=== PATIENT | female | born 1955 | race Caucasian/White ===

== ENCOUNTER 2016-09-25 08:24 | Emergency (ER) | payer MEDICARE, OTHER ==
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
[2016-09-25 09:56] LABS: Hematocrit 35 % (35-47); Hemoglobin 11.9 g/dl (12.0-16.0); Mean Corpuscular HGB Conc 34 g/dl (31-36); Mean Corpuscular Hemoglobin 31 pg (27-31); Mean Corpuscular Volume 90 fL (80-97); Mean Platelet Volume 8 um3 (7.4-10.4); Red Blood Count 3.87 10^6/ul (4.0-5.4); Red Cell Distribution Width 14 % (10.5-15)
[2016-09-25 10:06] LABS: ALT 39 U/L (7-52); AST 56 U/L (13-39); Albumin 4.1 g/dL (3.2-5.2); Alkaline Phosphatase 102 U/L (34-104); Anion Gap 11 mmol/L (2-11); Blood Urea Nitrogen 12 mg/dL (6-24); CO2 Carbon Dioxide 22 mmol/L (22-32); Calcium 9.2 mg/dL (8.6-10.3); Chloride 103 mmol/L (101-111); EGFR African American 93.8 (>60); EGFR Non-African American 72.9 (>60); Globulin 3.1 g/dL (2-4); Glucose 112 mg/dL (70-100); Potassium 3.9 mmol/L (3.5-5.0); Sodium 136 mmol/L (133-145); Total Protein 7.2 g/dL (6.4-8.9)
[2016-09-25 10:09] VITALS: BP 103/61
[2016-09-25 10:26] LABS: Urine Bacteria Absent (Absent); Urine Bilirubin Negative (Negative); Urine Glucose Negative (Negative); Urine Nitrite Negative (Negative)
[2016-09-25 10:48] LABS: Acetaminophen < 15 mcg/mL; Alcohol 103 mg/dL (<10); Salicylate < 2.50 mg/dL (<30)
[2016-09-25 10:58] LABS: TSH (Thyroid Stimulating Horm) 1.66 mcIU/mL (0.34-5.60)
[2016-09-25 11:04] LABS: Benzodiazepine Urine Screen None Detected (None Detect)
== END 2016-09-25 11:12 | disposition home or self-care (01) ==
LOC: ED 08:24
DX: F41.9 Anxiety disorder, unspecified (principal); D64.9 Anemia, unspecified; I25.10 Atherosclerotic heart disease of native coronary artery without angina pectoris; I10 Essential (primary) hypertension; Z95.5 Presence of coronary angioplasty implant and graft; E78.00 Pure hypercholesterolemia, unspecified; J44.9 Chronic obstructive pulmonary disease, unspecified; F32.9 Major depressive disorder, single episode, unspecified; Z90.711 Acquired absence of uterus with remaining cervical stump; Z87.891 Personal history of nicotine dependence
CPT/HCPCS: 36415; 80053; 80307; 80320; 80329; 81003; 81015; 83605; 84443; 84484; 85025; 99282; G0480

== ENCOUNTER 2016-10-11 07:56 | Emergency (ER) | payer MEDICARE, OTHER ==
[2016-10-11 08:04] VITALS: BP 104/67
--- NOTE | 2016-10-11 08:27 | UC ---
Hand/Wrist HPI - HPI Summary HPI Summary: right thumb pain feeling like it gets stuck and clicks with movement--no known injury - History Of Current Complaint Chief Complaint: UCUpperExtremity Stated Complaint: THUMB INJURY Time Seen by Provider: 10/11/16 08:25 Hx Obtained From: Patient ?: No Mechanism Of Injury: no known injury Onset/Duration: Gradual Onset, Lasting Days, Still Present Severity Initially: Moderate Severity Currently: Moderate Pain Intensity: 5 Pain Scale Used: 0-10 Numeric Character Of Pain: Throbbing, Stiffness Aggravating Factor(s): Movement Associated Signs And Symptoms: Positive: Negative Related History: Dominant Hand Right - Allergies/Home Medications Allergies/Adverse Reactions: Allergies Allergy/AdvReac Type Severity Reaction Status Date / Time Pravastatin [From Pravachol] Allergy Muscle Ache Verified 10/11/16 07:59 PMH/Surg Hx/FS Hx/Imm Hx Previously Healthy: No Endocrine History: Dyslipidemia Cardiovascular History: Hypertension GI/ History: Gastroesophageal Reflux Psychological History: Depression - Surgical History Surgical History: Yes Surgery Procedure, Year, and Place: [facility] [facility] [place]PLACEMENT THUMB AND INDEX FINGER-[facility] - Family History Known Family History: Positive: Hypertension - Social History Occupation: Retired Lives: With Family Alcohol Use: Occasionally Substance Use Type: Prescribed Smoking Status (MU): Former Smoker Type: Cigarettes Amount Used/How Often: 1.5 PPD Length of Time of Smoking/Using Tobacco: 17 YEARS Have You Smoked in the Last Year: No When Did the Patient Quit Smoking/Using Tobacco: 1996 Household Exposure Type: Cigarettes Review of Systems Constitutional: Negative Skin: Negative Eyes: Negative ENT: Negative Respiratory: Negative Cardiovascular: Negative Gastrointestinal: Negative Genitourinary: Negative Motor: Negative Neurovascular: Negative Musculoskeletal: Arthralgia - right thumb Neurological: Negative Psychological: Negative All Other Systems Reviewed And Are Negative: Yes Physical Exam Triage Information Reviewed: Yes Appearance: Well-Appearing, No Pain Distress, Well-Nourished Vital Signs: Initial Vital Signs Temp 97.4 F 10/11/16 08:00 Pulse 80 10/11/16 08:00 Resp 16 10/11/16 08:00 BP 104/67 10/11/16 08:00 Pulse Ox 97 10/11/16 08:00 Vital Signs Reviewed: Yes Eye Exam: Normal Eyes: Positive: Conjunctiva Clear ENT Exam: Normal ENT: Positive: Normal ENT inspection, Hearing grossly normal, Pharynx normal, TMs normal. Negative: Nasal congestion, Nasal drainage, Tonsillar swelling, Tonsillar exudate, Trismus, Muffled/hoarse voice Dental Exam: Normal Neck exam: Normal Neck: Positive: Supple, Nontender Respiratory Exam: Normal Respiratory: Positive: Chest non-tender, No respiratory distress, No accessory muscle use Cardiovascular Exam: Normal Cardiovascular: Positive: RRR, Pulses Normal, Brisk Capillary Refill Musculoskeletal Exam: Normal Musculoskeletal: Positive: ROM Intact, Strength Limited @ - right thumb, Edema @ - right thumb slightly swollen Neurological Exam: Normal Neurological: Positive: Alert, Muscle Tone Normal Psychological Exam: Normal Skin Exam: Normal Diagnostics - Radiology No standard instances Xray Interpretation: Positive (See Comments) - osteopenia Radiology Interpretation Completed By: Radiologist Hand/Wrist Course/Dx - Course Course Of Treatment: thumb spica, ibuprofen, follow with ortho - Differential Dx/Diagnosis Differential Diagnosis/HQI/PQRI: Contusion, Fracture, Sprain, Strain, Tendonitis Provider Diagnoses: Right thumb trigger finger Discharge - Discharge Plan Condition: Stable Disposition: HOME Prescriptions: Ibuprofen TAB* [Motrin TAB* 600 MG] 600 mg PO Q6H PRN #40 tab PRN Reason: thumb pain Patient Education Materials: Ibuprofen (By mouth), Trigger Finger (ED) Referrals: Luis Felipe Randall MD [Medical Doctor] - 4 Days
--- NOTE | 2016-10-11 08:52 | RAD ---
HISTORY: Right thumb pain, injury COMPARISONS: None VIEWS: 3, Frontal, lateral, and oblique views of the first digit of the right hand FINDINGS: BONE DENSITY: There is diffuse osteopenia. BONES: There is no displaced fracture. JOINTS: There is no arthropathy. ALIGNMENT: There is no dislocation. SOFT TISSUES: Unremarkable. OTHER FINDINGS: None. IMPRESSION: OSTEOPENIA. NO ACUTE OSSEOUS INJURY. THE DEGREE OF OSTEOPENIA MAY MAKE A NONDISPLACED FRACTURE RADIOGRAPHICALLY OCCULT. IF SYMPTOMS PERSIST, RECOMMEND REPEAT IMAGING.
== END 2016-10-11 09:16 | disposition home or self-care (01) ==
LOC: UCEAST 07:56
DX: M65.311 Trigger thumb, right thumb (principal); Z87.891 Personal history of nicotine dependence
CPT/HCPCS: 99213; G0463

== ENCOUNTER 2016-12-14 07:40 | Emergency (ER) | payer MEDICARE, OTHER ==
[2016-12-14 08:11] VITALS: BP 129/79
== END 2016-12-14 08:46 | disposition left against medical advice (07) ==
LOC: UCEAST 07:40
DX: R07.81 Pleurodynia (principal); Z53.21 Procedure and treatment not carried out due to patient leaving prior to being seen by health care provider

== ENCOUNTER 2016-12-14 10:30 | Emergency (ER) | payer MEDICARE, OTHER ==
[2016-12-14 11:51] VITALS: BP 97/77
--- NOTE | 2016-12-14 12:25 | UC ---
Minor Trauma HPI - HPI Summary HPI Summary: Patient presents s/p traumatic injury to the right posterior ribs three days ago. she was getting ready for bed applying her cpap in the bathroom and fell. she struck the right side of her ribs on the way down. Denies LOC, got herself back up. She thought it would just get better but it in not. She reports constant pain, which is worse with movement, coughing, or to palpation. She states she cannot sleep at night because when she rolls over it wakes her. - History of Current Complaint Chief Complaint: UCTrauma Stated Complaint: BACK PAIN Time Seen by Provider: 12/14/16 12:08 Hx Obtained From: Patient ?: No Onset/Duration: Sudden Onset Onset Of Pain: Immediate Severity Initially: Moderate Severity Currently: Moderate Mechanism Of Injury: Blunt Trauma, Direct Blow Aggravating Factor(s): Deep Breaths, Movement Alleviating Factor(s): OTC Meds Associated Signs And Symptoms: Positive: Ecchymosis, Swelling - Risk Factors Penetrating Injury Risk Factors: Negative Compartment Syndrome Risk Factors: Pain - Allergies/Home Medications Allergies/Adverse Reactions: Allergies Allergy/AdvReac Type Severity Reaction Status Date / Time Pravastatin [From Pravachol] Allergy Muscle Ache Verified 12/14/16 11:52 PMH/Surg Hx/FS Hx/Imm Hx Previously Healthy: Yes Cardiovascular History: Cardiac Disease Neurological History: Other Other Neurological History: fibromyalgia - Surgical History Surgical History: Yes Surgery Procedure, Year, and Place: [place] [facility] [place]AC[place]. 03/2011 LEFT HAND TENDON REPLACEMENT THUMB AND INDEX FINGER-[facility] - Family History Known Family History: Positive: Hypertension - Social History Occupation: Unemployed Alcohol Use: Occasionally Substance Use Type: None, Prescribed Smoking Status (MU): Former Smoker Type: Cigarettes Amount Used/How Often: 1.5 PPD Length of Time of Smoking/Using Tobacco: 17 YEARS Have You Smoked in the Last Year: No When Did the Patient Quit Smoking/Using Tobacco: 1996 Household Exposure Type: Cigarettes Review of Systems Musculoskeletal: Myalgia All Other Systems Reviewed And Are Negative: Yes Physical Exam Triage Information Reviewed: Yes Appearance: Well-Appearing Vital Signs: Initial Vital Signs Temp 97.6 F 12/14/16 11:47 Pulse 91 12/14/16 11:47 Resp 20 12/14/16 11:47 BP 97/77 12/14/16 11:47 Pulse Ox 97 12/14/16 11:47 Vital Signs Reviewed: Yes Eye Exam: Normal ENT Exam: Normal Neck exam: Normal Respiratory Exam: Normal Cardiovascular Exam: Normal Abdominal Exam: Normal Musculoskeletal: Positive: Strength Limited @, ROM Limited @, Edema @, Other: - ribs, brusing noted posterior at location of rib #9-11. tenderness on palpation. no crepitus or subquetaneous empysema palpated. Skin: Positive: Other - bruising noted. Minor Trauma Course/Dx - Course Course Of Treatment: Patient presents s/p traumatic injury to the right ribs. Xrays were obtained and read as negative for fracture, however if pain persist follow up imaging was recommended. I gave a copy of the report to the patient and she understands the discharge plan. Pain addressed. with norco. Follow up with Dr. Puri if pain continues. Stable at discharge. - Differential Dx/Diagnosis Differential Diagnosis/HQI/PQRI: Contusion(s) Provider Diagnoses: Contusion rib. Discharge - Discharge Plan Condition: Stable Disposition: HOME Prescriptions: HYDROcodone/ACETAMIN 5-325 MG* [[place] 5-325 TAB*] 1 tab PO Q8H PRN #14 tab MDD 3 PRN Reason: rib contusion Patient Education Materials: Contusion in Adults (ED) Referrals: Ailin Douglas MD [Primary Care Provider] - Scott Puri MD [Medical Doctor] -
--- NOTE | 2016-12-14 12:58 | RAD ---
INDICATION: Trauma, bilateral rib pain. TECHNIQUE: 3 views of both ribs were obtained. FINDINGS: No fracture or significant focal osseous abnormality is seen. The lungs appear grossly clear. No pleural effusion is seen. IMPRESSION: NO EVIDENCE FOR FRACTURE, IF THE PATIENT'S SYMPTOMS PERSIST RECOMMEND FOLLOW-UP IMAGING.
== END 2016-12-14 13:15 | disposition home or self-care (01) ==
LOC: UCEAST 10:30
DX: S20.221A Contusion of right back wall of thorax, initial encounter (principal); W18.00XA Striking against unspecified object with subsequent fall, initial encounter; Y93.89 Activity, other specified; Y92.002 Bathroom of unspecified non-institutional (private) residence as the place of occurrence of the external cause; I51.9 Heart disease, unspecified; Z95.5 Presence of coronary angioplasty implant and graft; Z90.711 Acquired absence of uterus with remaining cervical stump; M79.7 Fibromyalgia; Z87.891 Personal history of nicotine dependence
CPT/HCPCS: 71110; 99212; G0463

== ENCOUNTER 2018-07-23 10:01 | Emergency (ER) | payer MEDICARE, OTHER ==
--- OUTSIDE RECORDS SUMMARY | 2018-07-23 10:29 | XMS REPORT | Continuity of Care Document ---
:1955 External Reference #:[id number] Author Name Kendrick, Selam Care Team Providers Name Role Phone Ailin Douglas MD Primary Care Physician Unavailable Payers Date Identification Numbers Payment Provider Subscriber Effective: 2004 Policy Number: [id number] Medicare Barb Fritz PayID: [id number] [address] [place] [address] Policy Number: [id number] [employer] Barb Fritz Group Number: [id number] [address] PayID: [id number] [place] [address] Effective: 1999 Policy Number: [id number] Aracelis Guzman Barb Fritz Onset: 1999 Group Number: [id number] [address] PayID: [place] [id number] Advance Directives Description No Information Available Problems Date Description Provider Status Onset: 06/25/2011 Coronary arteriosclerosis Seth Astorga M.D. Active Onset: 06/25/2011 Pure hypercholesterolemia Seth Astorga M.D. Active Onset: 02/07/2012 Difficulty breathing Seth Astorga M.D. Active Onset: 08/28/2013 Benign essential hypertension ZABRINA Zuleta Active Onset: 08/28/2013 Myalgia & Myositis Unspecified ZABRINA Zuleta Active Onset: 03/14/2014 Obstructive sleep apnea syndrome Ethan Weaver M.D. Active Onset: 08/20/2014 Chronic pain Marbella Zhang M.D. Active Onset: 08/20/2014 Periodic leg movements of sleep Marbella Zhang M.D. Active Onset: 11/06/2015 Pain in left arm Marbella Zhang M.D. Active Onset: 04/09/2016 Insomnia Rosa Maria Paulino DNP, RN, Active [employer] Family History Date Family Member(s) Observation Comments : (age 74 Father due to Cancer Years) Father Bladder Cancer Father : (age 69 Mother due to CA Years) Mother Heart Disease Mother cancer, : (age 34 First Brother due to Unknown Years) Causes Second Brother Unknown Brain bleed -stroke Social History Type Date Description Comments Sex Unknown Marital Status Lives With Alone Occupation Retired Occupation Detective Supervisor ETOH Use Denies alcohol use Recreational Drug Use Denies Drug Use Tobacco Use Start: Unknown Patient is a current 1/2 ppd, restarted smoker, smokes every with spouse's day in February 2018 Smoking Status Reviewed: 07/12/18 Patient is a current 1/2 ppd, restarted smoker, smokes every with spouse's day in February 2018 Exercise Type/Frequency Exercises sporadically walks as weather permits Allergies, Adverse Reactions, Alerts Date Description Reaction Status Severity Comments 07/29/2011 Pravachol Active muscle aches 12/04/2007 NKDA Inactive Medications Medication Date Status Form Strength Qnty SIG Indications Ordering Provider Entresto 07/05/ Active Tablets 49-51mg 180ta 1 tab by Seth 2018 bs mouth twice Serge Astorga, a day M.Emi Aldactone 03/30/ Active Tablets 25mg 45tab /2 by Seth 2016 s mouth every FRomero Mauserstepan MRomeroDRomero Requip 11/05/ Active Tablets 0.25mg 360ta take 2 by Flaquita.4 Nissa 2015 bs mouth twice Cowdery, day M.DRomero Coreg CR 06/30/ Active Caps ER 10mg 180ca 1 tab twice Seth 2015 24HR ps a day Serge Astorga M.D. Fluoxetine HCL 07/27/ Active Capsules 20mg 90cap 1 cap by Adilia 2013 s mouth daily Gnadt, SKIRT TRIMMER Ventolin HFA 04/19/ Active Aerosol 108(90Bas 1unit 2 puffs po Other 2013 e) s qid prn Ordering mcg/Act Provider Potassium 03/01/ Active Capsules 10Meq 90cap take 1 Seth Chloride ER 2011 ER s capsule by Serge Astorga, mouth every M.D. day Crestor 01/05/ Active Tablets 10mg 90tab 2 tab by Seth 2011 s mouth every FRomero Astorga, day M.D. Aspirin 08/13/ Active Chewtabs 81mg 30uni 1 po qd Seth 2009 ts Serge Astorga M.D. Multivitamin / Active one po qd Unknown 0000 Pantoprazole / Active Tablets DR 20mg 30tab 1 po qd Unknown Sodium 0000 s Symbicort / Active Aerosol 160-4.5mc 2 Unknown 0000 g/Act inhalation bid prn Cpap / Active Device qhs Unknown 0000 Duloxetine HCL / Active 60mg 1 tablet Unknown 0000 daily Alpha-Lipoic / Active 200mg 1 tablet Unknown Acid 0000 daily Gabapentin / Active Capsules 400mg take one Unknown 0000 capsule by in the morning and 2 in the evening Entresto 04/11/ Hx Tablets 24-26mg 60tab 1 tab by Seth 2018 - s mouth twice Serge Astorga, 07/04/ daily .D. 2018 Nitro-Dur 03/21/ Hx Patches 0.1mg/HR 30uni 1 patch I25.10 Seth 2017 - 24HR ts every day Serge Astorga, 04/11/ on in the .D. 2018 morning, off at night Zolpidem 06/14/ Hx Tablets 5mg 14tab Take One Rosa Maria Tartrate 2016 - s Tablet By Lora, 12/21/ Mouth AT [place] RN, 2018 Bedtime If [employer] Unable To Fall Asleep , Hold Amrix If Taking Max/Day-1 Oxycontin 05/29/ Hx Tab ER 12H 10mg by mouth Unknown 2016 - Abuse-Det every 12 03/09/ hours 2016 Coreg CR 11/26/ Hx Caps ER 10mg 200ca 1 by mouth Seth 2013 - 24HR ps in the Serge Astorga, 06/30/ alisa and Danyel 2015 1 in the evening starting 3.11.16 hold 3.10.16 pm dose Ropinirole HCL 11/16/ Hx Tablets 0.25mg 360ta 1-4 tabs 327.51 Marbella Peterson 2013 - bs tabs by Leatha, 01/02/ mouth every M.D. 2013 at night as directed Hydrocodone-Reji 07/27/ Hx Tablets 5-325mg 40tab 1 by mouth Adilia dumont 2013 - s every 4-6 Gnadt, SKIRT TRIMMER 05/29/ hours prn. 2016 Lisinopril 06/06/ Hx Tablets 2.5mg 90tab 1 po qd Seth 2013 - s Serge Astorga, M.D. 2013 Fluoxetine HCL 04/21/ Hx Capsules 40mg Marbella Peterson 2012 - Leatha, M.D. 2012 Fluoxetine 04/21/ Hx Capsules 20mg 90cap 1ppo Qarhett Peterson 2012 and 2 po Leatha, 07/27/ Qpm M.D. 2013 [id number] comp # Hydrocodone/Reji 04/21/ Hx Tablets 5-500mg 40tab 1 tab by Marbella dumont 2012 - mouth every Leatha, 07/27/ 12 hours M.D. 2013 as needed Potassium 03/01/ Hx Tablets ER 10Meq 90tab 1 tablet qd Seth Chloride CR 2011 - s FRomero Astorga, 12/11/ M.D. 2013 Coreg CR 02/28/ Hx Caps ER 10mg 270ca 1 po qa Seth 2011 - 24HR ps and 2 po F. Mauser, 11/26/ qpm M.D. 2013 Nitro-Dur 02/22/ Hx Patches 0.2mg/HR 30uni 1 patch qd Seth 2011 - 24HR ts on in the FRomero Astroga, 11/24/ am, off in M.D. 2013 the pm Coreg CR 01/05/ Hx Caps ER 20mg 90cap 1 po qd Seth 2011 - 24HR s FRomero Astorga, 02/28/ M.D. 2012 Prozac 12/20/ Hx Capsules 20mg 90cap 2-3 tabs by Marbella Peterson 2011 - mouth every Leatha, 01/05/ day M.D. 2011 Pravachol 07/21/ Hx Tablets 20mg 90tab 1 tablet po Seth 2011 - s qhs F. Mauser, 07/28/ M.D. 2011 Lisinopril 06/24/ Hx Tablets 2.5mg 90tab take 1 Seth 2011 - s tablet by Serge Astorga, 04/11/ mouth every M.D. 2019 day Simvastatin 12/25/ Hx Tablets 10mg 30tab 1 po qhs Seth 2010 - s Serge Astorga, M.D. 2010 Lisinopril 08/21/ Hx Tablets 2.5mg 100ta 1 po qd Seth 2010 - bs Serge Astorga, M.D. 2010 Cymbalta 06/17/ Hx Caps DR 20mg 1 po qd Seth 2010 - Part Serge Astorga, M.D. 2010 Coreg CR 06/17/ Hx Caps ER 10mg 100ca 1 po qd Seth 2010 - 24HR ps Serge Astorga, M.D. 2010 Coreg CR 12/22/ Hx Caps ER 10mg 180ca 2 po qd Seth 2009 - 24HR ps Serge Astorga, M.D. 2010 Protonix 08/13/ Hx Solution 40mg 1 po qd prn Seth 2009 - Rec Serge Astorga, M.D. 2010 Protonix 06/13/ Hx Tablets DR 40mg 90tab 1 po qd Seth 2009 - s Serge Astorga, M.D. 2009 Coreg CR 03/18/ Hx Caps ER 10mg 180ca 2 po qd Seth 2008 - 24HR lb Astorga, M.D. 2009 Coreg CR 12/26/ Hx Caps ER 30mg 90cap one po qd Seth 2008 - 24HR s Serge Astorga, M.D. 2010 Coreg CR 12/20/ Hx Caps ER 10mg 90cap 1 po qd Seth 2008 - 24HR s Serge Astorga, M.D. 2008 Coreg CR 12/20/ Hx Caps ER 20mg 90cap 1 po qd Seth 2008 - 24HR s Serge Astorga, M.D. 2008 Coreg CR 08/21/ Hx Caps ER 10mg 180ca 2 po qd Seth 2008 - 24HR ps Serge Astorga, M.D. 2008 Lisinopril 07/08/ Hx Tablets 2.5mg 100ta 1 po qd Seth 2008 - bs Serge Astorga, M.D. 2010 Lisinopril 06/20/ Hx Tablets 5mg 1 po qd Seth 2008 - Serge Astorga, M.D. 2008 Lisinopril 04/19/ Hx Tablets 2.5mg 90tab 1 po qd Seth 2008 - s Serge Astorga, M.D. 2009 Plavix 12/03/ Hx Tablets 75mg 90tab 1 PO qd Seth 2007 - s Serge Astorga, M.D. 2010 Aspirin 12/03/ Hx Tablets 325mg 1 po qd Seth 2007 - Serge Astorga, M.D. 2009 Paroxetine HCL 12/03/ Hx Tablets 20mg 90tab 1 PO qd Seth 2007 - s Serge Astorga, M.D. 2010 Simvastatin 12/03/ Hx Tablets 40mg 90tab 1 PO QHS Seth 2007 - s Serge Astorga, M.D. 2008 Nitroquick 12/03/ Hx Tablets 0.4mg 25tab 1 S/L prn Seth 2007 - Sub s Chest Pain, Serge Astorga, 08/21/ Q 5 Min. Up M.D. 2010 To 3 Tabs Coreg CR 10/24/ Hx Caps ER 10mg 30cap 1 po qd Seth 2007 - 24HR s Serge Astorga, M.D. 2008 Aspir-Low 10/24/ Hx Tablets DR 81mg 30tab 1 PO qd Seth 2007 - s Serge Astorga, M.D. 2007 Carisoprodol / Hx tablet 350mg 1 po tid Unknown 0000 - 2009 Lyrica / Hx Capsules 150mg 60cap 1 PO tid Unknown 0000 - s 2008 Nortriptyline / Hx Capsules 10mg 60cap PO 2 QHS Unknown HCL 0000 - s 2008 Trazodone HCL / Hx Tablets 50mg 30tab 2 QHS Unknown 0000 - s 2012 Hydrocodone/Reji 00/00/ Hx Tablets 5-500mg 30tab 1 Tablet PO Unknown taminophen 0000 - s Q 4 HRS prn 2010 Lipitor 00/ Hx Tablets 80mg 30tab 1 po qhs Unknown 0000 - s 2010 Gabapentin 00/ Hx Tablets 600mg 90tab 1 tab by Adilia 0000 - s mouth every Gnadt, SK[employer] TRIMMER morning and 2016 2 tabs in the evening Lyrica / Hx Capsules 75mg 60cap 2 po qd Unknown 0000 - s 2010 Valtrex / Hx Tablets 1gm 21tab 1 po q8h Unknown 0000 - s prn 2010 Carisoprodol / Hx Tablets 350mg 30tab 1 tab tid Unknown 0000 - s 2010 Iron / Hx Tablets 325(65Fe) po daily Unknown 0000 - mg 2013 Cymbalta / Hx Caps DR 20mg 90cap 1 po qd Unknown 0000 - Part s 2010 Coreg / Hx Tablets 3.125mg 90tab 1 po bid Unknown 0000 - s 2010 B-Complex 100 / Hx Tablets 100 qd Unknown - 2013 Prozac 00/ Hx Capsules 20mg 90cap 1 po qd Unknown 0000 - s 2010 Disulfiram / Hx Tablets 250mg 90tab 1 every day Unknown 0000 - s 2012 Fluoxetine 00/ Hx Capsules 20mg 30cap 1 po bid Unknown 0000 - s 2012 Coreg CR / Hx Caps ER 10mg 30cap 1 po bid Unknown 0000 - 24HR s 2011 Simvastatin /00/ Hx Tablets 10mg 30tab 1 po qhs Unknown 0000 - s 2011 Pravachol /00/ Hx Tablets 10mg 30tab 1 po qd Unknown 0000 - s 2011 Fish Oil / Hx Capsules 1200mg 1 po qd Unknown Burp-Less - 2013 Trazodone HCL 00/ Hx Tablets 100mg 1 po qhs Unknown 0000 - 2015 Oxycodone HCL 00/ Hx 10mg 1 tablet in Unknown 0000 - the morning 2016 tablets at night Amrix 00/ Hx 15mg 1tablet Unknown 0000 - daily 2016 Medications Administered in Office Medication Date Status Form Strength Qnty SIG Indications Ordering Provider Inj, Administered Injection Anshul S. Regadenoson, 018 Welch, DO 0.1 MG FACC Technetium TC Administered Injection Anshul S. 99M 018 Ewlch, DO Tetrofosmin, FACC Per Unit Dose Up To 40 Millicuries Depomedrol Administered Injection Tanja 40MG 017 Danyel Hernandez Technetium TC Administered Injection Job Bertrand 99M 016 Armin Terrell M.D., FACC, Per Unit Dose FASNC Up To 40 Millicuries Technetium TC Administered Injection Martha Silveira, 99M 016 PA Tetrofosmin, Per Unit Dose Up To 40 Millicuries Immunizations Description No Information Available Vital Signs Date Vital Result Comment 07/12/2018 8:19am Height 63 inches 5'3" Weight 109.50 lb with shoes Heart Rate 68 /min BP Systolic Sitting 108 mmHg BP Diastolic Sitting 70 mmHg BP Systolic Standing 108 mmHg BP Diastolic Standing 70 mmHg BMI (Body Mass Index) 19.4 kg/m2 Ejection Fraction 35-40% 06/21/18 Echo 04/24/2018 8:55am Height 63 inches 5'3" Weight 111.25 lb with shoes Heart Rate 80 /min BP Systolic Sitting 112 mmHg ule BP Diastolic Sitting 62 mmHg ule BMI (Body Mass Index) 19.7 kg/m2 Ejection Fraction 42% -48% Lexiscan stress test resting/stress 04/07/18 03/21/2018 8:50am Height 63 inches 5'3" Weight 118.00 lb with shoes Heart Rate 80 /min BP Systolic Sitting 116 mmHg lue reg cuff BP Diastolic Sitting 72 mmHg lue reg cuff BMI (Body Mass Index) 20.9 kg/m2 Ejection Fraction 30-35% echo 03/10/18 12/22/2017 2:43pm Height 63 inches 5'3" Weight 130.50 lb Heart Rate 88 /min BP Systolic Sitting 108 mmHg LA< reg BP Diastolic Sitting 68 mmHg LA< reg BP Systolic Standing 96 mmHg la repeat sitting. BP Diastolic Standing 40 mmHg la repeat sitting. BMI (Body Mass Index) 23.1 kg/m2 Ejection Fraction 35%-40% 03/30/2017 04/06/2017 8:21am Height 63 inches 5'3" Weight 134.00 lb with shoes Heart Rate 76 /min BP Systolic Sitting 114 mmHg Rue reg cuff BP Diastolic Sitting 90 mmHg Rue reg cuff Respiratory Rate 16 /min O2 % BldC Oximetry 94 % On Ra BMI (Body Mass Index) 23.7 kg/m2 11/05/2016 8:55am Height 63 inches 5'3" Weight 130.00 lb Heart Rate 72 /min BP Systolic Sitting 130 mmHg BP Diastolic Sitting 82 mmHg Respiratory Rate 20 /min O2 % BldC Oximetry 95 % room air BMI (Body Mass Index) 23.0 kg/m2 10/13/2016 10:54am Height 63 inches 5'3" Weight 133.00 lb Heart Rate 76 /min BP Systolic Sitting 102 mmHg BP Diastolic Sitting 70 mmHg Respiratory Rate 14 /min Body Temperature 99.0 F Pain Level 5 BMI (Body Mass Index) 23.6 kg/m2 08/10/2016 8:15am Height 62 inches 5'2" Weight 138.75 lb with shoes Heart Rate 62 /min BP Systolic Sitting 128 mmHg LA reg cuff BP Diastolic Sitting 76 mmHg LA reg cuff BMI (Body Mass Index) 25.4 kg/m2 07/27/2016 8:32am Height 62 inches 5'2" Weight 138.00 lb Heart Rate 82 /min BP Systolic Sitting 110 mmHg BP Diastolic Sitting 60 mmHg Respiratory Rate 18 /min Pain Level 8 Neck O2 % BldC Oximetry 94 % BMI (Body Mass Index) 25.2 kg/m2 06/14/2016 11:27am Height 62 inches 5'2" Weight 138.00 lb Heart Rate 83 /min BP Systolic Sitting 120 mmHg BP Diastolic Sitting 64 mmHg Respiratory Rate 14 /min O2 % BldC Oximetry 96 % BMI (Body Mass Index) 25.2 kg/m2 04/09/2016 8:48am Height 62 inches 5'2" Weight 138.00 lb Heart Rate 81 /min BP Systolic Sitting 122 mmHg BP Diastolic Sitting 68 mmHg Respiratory Rate 14 /min O2 % BldC Oximetry 94 % BMI (Body Mass Index) 25.2 kg/m2 02/25/2016 8:15am Height 62 inches 5'2" Weight 138.25 lb with shoes Heart Rate 88 /min BP Systolic Sitting 126 mmHg LA reg cuff BP Diastolic Sitting 78 mmHg LA reg cuff O2 % BldC Oximetry 98 % Room Air BMI (Body Mass Index) 25.3 kg/m2 Ejection Fraction 40% - 45% echo 08/15/15 12/02/2015 9:26am Height 62 inches 5'2" Weight 139.00 lb Heart Rate 92 /min BP Systolic 108 mmHg BP Diastolic 60 mmHg Respiratory Rate 14 /min O2 % BldC Oximetry 96 % BMI (Body Mass Index) 25.4 kg/m2 11/25/2015 9:04am Height 62 inches 5'2" Weight 139.00 lb w/shoes Heart Rate 92 /min BP Systolic Sitting 104 mmHg LA reg cuff BP Diastolic Sitting 72 mmHg LA reg cuff BMI (Body Mass Index) 25.4 kg/m2 Ejection Fraction 40-45% Echo 08/15/15 11/06/2015 11:19am Height 62 inches 5'2" Weight 140.00 lb Heart Rate 76 /min BP Systolic Sitting 116 mmHg BP Diastolic Sitting 82 mmHg Respiratory Rate 14 /min BMI (Body Mass Index) 25.6 kg/m2 08/29/2015 9:16am Height 62 inches 5'2" Weight 136.25 lb Heart Rate 86 /min BP Systolic Sitting 101 mmHg BP Diastolic Sitting 60 mmHg Respiratory Rate 14 /min O2 % BldC Oximetry 96 % BMI (Body Mass Index) 24.9 kg/m2 07/01/2015 1:41pm Height 62 inches 5'2" Weight 136.25 lb with shoes Heart Rate 88 /min BP Systolic Sitting 94 mmHg LA, regular BP Diastolic Sitting 58 mmHg LA, regular BMI (Body Mass Index) 24.9 kg/m2 Ejection Fraction 35-40% echo 09/06/14 06/19/2015 11:33am Height 62 inches 5'2" Weight 131.50 lb with shoes Heart Rate 81 /min BP Systolic Sitting 84 mmHg LA, regular cuff BP Diastolic Sitting 60 mmHg LA, regular cuff BMI (Body Mass Index) 24.0 kg/m2 Ejection Fraction 35-40% echo09/06/14 05/30/2015 9:29am Height 62 inches 5'2" Weight 132.00 lb Heart Rate 73 /min BP Systolic Sitting 120 mmHg BP Diastolic Sitting 70 mmHg Respiratory Rate 16 /min O2 % BldC Oximetry 96 % BMI (Body Mass Index) 24.1 kg/m2 02/20/2015 8:37am Height 62 inches 5'2" Weight 132.00 lb Heart Rate 72 /min BP Systolic Sitting 114 mmHg BP Diastolic Sitting 72 mmHg Respiratory Rate 16 /min BMI (Body Mass Index) 24.1 kg/m2 11/27/2014 8:05am Height 62 inches 5'2" Weight 129.00 lb Heart Rate 80 /min BP Systolic 104 mmHg BP Diastolic 60 mmHg Respiratory Rate 14 /min O2 % BldC Oximetry 96 % BMI (Body Mass Index) 23.6 kg/m2 08/20/2014 8:34am Height 62 inches 5'2" Weight 129.00 lb Heart Rate 68 /min BP Systolic Sitting 116 mmHg BP Diastolic Sitting 66 mmHg Respiratory Rate 16 /min BMI (Body Mass Index) 23.6 kg/m2 08/19/2014 8:33am Height 62 inches 5'2" Weight 130.50 lb Heart Rate 62 /min BP Systolic 116 mmHg LA reg BP Diastolic 70 mmHg LA reg BMI (Body Mass Index) 23.9 kg/m2 Ejection Fraction 35-40% ECHO 12/26/13 05/30/2014 8:38am Height 62 inches 5'2" Weight 127.00 lb Heart Rate 75 /min BP Systolic Sitting 122 mmHg BP Diastolic Sitting 56 mmHg Respiratory Rate 18 /min O2 % BldC Oximetry 94 % BMI (Body Mass Index) 23.2 kg/m2 03/14/2014 3:06pm Height 64 inches 5'4" Weight 126.00 lb Heart Rate 78 /min BP Systolic Sitting 122 mmHg BP Diastolic Sitting 66 mmHg Respiratory Rate 16 /min O2 % BldC Oximetry 96 % BMI (Body Mass Index) 21.6 kg/m2 Neck Circumference in inches 13 02/19/2014 8:41am Height 64 inches 5'4" Weight 125.00 lb Heart Rate 64 /min BP Systolic Sitting 118 mmHg BP Diastolic Sitting 76 mmHg Respiratory Rate 16 /min BMI (Body Mass Index) 21.5 kg/m2 11/26/2013 8:37am Height 64 inches 5'4" Weight 129.75 lb Heart Rate 72 /min BP Systolic Sitting 104 mmHg BP Diastolic Sitting 66 mmHg Respiratory Rate 15 /min BMI (Body Mass Index) 22.3 kg/m2 11/16/2013 10:10am Height 64 inches 5'4" Weight 127.50 lb Heart Rate 68 /min BP Systolic Sitting 108 mmHg BP Diastolic Sitting 74 mmHg Respiratory Rate 16 /min BMI (Body Mass Index) 21.9 kg/m2 09/10/2013 11:09am Height 62 inches 5'2" Weight 128.00 lb Heart Rate 66 /min BP Systolic Sitting 100 mmHg BP Diastolic Sitting 60 mmHg Respiratory Rate 16 /min BMI (Body Mass Index) 23.4 kg/m2 08/28/2013 9:25am Height 62 inches 5'2" Weight 128.50 lb with shoes Heart Rate 66 /min BP Systolic Sitting 126 mmHg LA reg cuff BP Diastolic Sitting 80 mmHg LA reg cuff Respiratory Rate 14 /min BMI (Body Mass Index) 23.5 kg/m2 07/27/2013 8:54am Height 62 inches 5'2" Weight 128.00 lb Heart Rate 67 /min BP Systolic Sitting 110 mmHg BP Diastolic Sitting 110 mmHg Respiratory Rate 16 /min BMI (Body Mass Index) 23.4 kg/m2 07/09/2013 8:28am Heart Rate 72 /min BP Systolic Sitting 96 mmHg BP Diastolic Sitting 62 mmHg 04/19/2013 9:43am Height 62 inches 5'2" Weight 127.00 lb Heart Rate 68 /min BP Systolic 120 mmHg BP Diastolic 64 mmHg BMI (Body Mass Index) 23.2 kg/m2 03/22/2013 2:11pm Heart Rate 72 /min BP Systolic Sitting 102 mmHg BP Diastolic Sitting 70 mmHg Respiratory Rate 16 /min 11/24/2012 9:44am Height 62 inches 5'2" Weight 123.00 lb Heart Rate 72 /min BP Systolic Sitting 108 mmHg BP Diastolic Sitting 74 mmHg Respiratory Rate 12 /min BMI (Body Mass Index) 22.5 kg/m2 02/23/2012 1:44pm Height 62 inches 5'2" Weight 124.00 lb Heart Rate 74 /min BP Systolic 122 mmHg BP Diastolic 68 mmHg BMI (Body Mass Index) 22.7 kg/m2 01/06/2012 10:05am Height 62 inches 5'2" Weight 125.00 lb Heart Rate 60 /min BP Systolic 104 mmHg BP Diastolic 68 mmHg BMI (Body Mass Index) 22.9 kg/m2 07/14/2011 2:50pm Height 62 inches 5'2" Weight 123.00 lb Heart Rate 72 /min BP Systolic Sitting 130 mmHg BP Diastolic Sitting 72 mmHg BMI (Body Mass Index) 22.5 kg/m2 06/25/2011 9:30am Height 62 inches 5'2" Weight 129.00 lb Heart Rate 63 /min BP Systolic 110 mmHg BP Diastolic 64 mmHg BMI (Body Mass Index) 23.6 kg/m2 12/25/2010 10:57am Height 62 inches 5'2" Weight 124.00 lb Heart Rate 67 /min BP Systolic Sitting 106 mmHg L BP Diastolic Sitting 70 mmHg L BMI (Body Mass Index) 22.7 kg/m2 08/21/2010 9:14am Weight 126.00 lb Heart Rate 72 /min BP Systolic Sitting 124 mmHg BP Diastolic Sitting 76 mmHg 06/17/2010 10:05am Weight 125.00 lb Heart Rate 63 /min BP Systolic 120 mmHg BP Diastolic 70 mmHg BP Systolic Sitting 100 mmHg BP Diastolic Sitting 70 mmHg BP Systolic Standing 92 mmHg BP Diastolic Standing 62 mmHg Respiratory Rate 16 /min O2 % BldC Oximetry 94 % 08/13/2009 4:01pm Weight 127.00 lb Heart Rate 80 /min BP Systolic 110 mmHg BP Diastolic 70 mmHg Respiratory Rate 16 /min 06/13/2009 10:09am Height 63 inches 5'3" Weight 128.00 lb Heart Rate 60 /min BP Systolic Sitting 104 mmHg L BP Diastolic Sitting 70 mmHg L BMI (Body Mass Index) 22.7 kg/m2 03/18/2009 9:16am Weight 135.00 lb Heart Rate 66 /min BP Systolic Sitting 90 mmHg BP Diastolic Sitting 64 mmHg BP Systolic Standing 90 mmHg BP Diastolic Standing 60 mmHg Respiratory Rate 16 /min 12/20/2008 2:36pm Height 63 inches 5'3" Weight 135.00 lb Heart Rate 72 /min BP Systolic Sitting 110 mmHg L BP Diastolic Sitting 60 mmHg L BMI (Body Mass Index) 23.9 kg/m2 08/21/2008 1:52pm Weight 142.00 lb Heart Rate 78 /min BP Systolic Sitting 100 mmHg BP Diastolic Sitting 64 mmHg BP Systolic Standing 100 mmHg BP Diastolic Standing 68 mmHg Respiratory Rate 16 /min 07/08/2008 10:41am Heart Rate 80 /min BP Systolic Sitting 100 mmHg BP Diastolic Sitting 70 mmHg BP Systolic Standing 92 mmHg BP Diastolic Standing 70 mmHg Respiratory Rate 16 /min 04/19/2008 9:51am Height 63 inches 5'3" Weight 138.00 lb Heart Rate 75 /min BP Systolic Sitting 110 mmHg L BP Diastolic Sitting 70 mmHg L BMI (Body Mass Index) 24.4 kg/m2 12/04/2007 8:19am Height 63 inches 5'3" Weight 135.00 lb Heart Rate 75 /min BP Systolic Sitting 94 mmHg BP Diastolic Sitting 60 mmHg BP Systolic Standing 80 mmHg BP Diastolic Standing 60 mmHg BMI (Body Mass Index) 23.9 kg/m2 Results Test Date Facility Test Result H/L Range Note Basic Metabolic 04/24/2018 [facility] Sodium 137 mmol/L N 135- [address] [place] [address] [phone] Potassium 4.2 mmol/L N 3.5-5.0 Chloride 102 mmol/L N 101-111 Co2 Carbon Dioxide 27 mmol/L N 22-32 Anion Gap 8 mmol/L N 2-11 Glucose 104 mg/dL High 70-100 Blood Urea Nitrogen 11 mg/dL N 6-24 Creatinine 0.71 mg/dL N 0.51-0.95 BUN/Creatinine Ratio 15.5 N 8-20 Calcium 9.7 mg/dL N 8.6-10.3 Egfr Non- 83.1 >60 Egfr 100.6 >60 1 Basic Metabolic Panel 03/23/2018 [facility] Sodium 138 mmol/L N 135-[address] [place] [address] [phone] Potassium 4.6 mmol/L N 3.5-5.0 Chloride 103 mmol/L N 101-111 Co2 Carbon Dioxide 27 mmol/L N 22-32 Anion Gap 8 mmol/L N 2-11 Glucose 94 mg/dL N 70-100 Blood Urea Nitrogen 11 mg/dL N 6-24 Creatinine 0.70 mg/dL N 0.51-0.95 BUN/Creatinine Ratio 15.7 N 8-20 Calcium 9.5 mg/dL N 8.6-10.3 Egfr Non- 84.5 >60 Egfr 102.3 >60 2 Laboratory test 03/23/2018 [facility] B-Type 37 pg/mL <=[address] [place] [address] Peptide BNP [phone] CBC Auto Diff 03/23/2018 [facility] White Blood 7.4 N 3.5- 10.[address] Count 10^3/[place] [address] [phone] Red Blood Count 3.93 10^6/uL Low 4.00-5.40 Hemoglobin 12.2 g/dL N 12.0-16.0 Hematocrit 37 % N 35-47 Mean Corpuscular Volume 94 fL N 80-97 Mean Corpuscular Hemoglobin 31 pg N 27-31 Mean Corpuscular HGB Conc 33 g/dL N 31-36 Red Cell Distribution Width 14 % N 10.5-15 Platelet Count 377 10^3/uL N 150-450 Mean Platelet Volume 9.2 fL N 7.4-10.4 Abs Neutrophils 3.8 10^3/uL N 1.5-7.7 Abs Lymphocytes 2.6 10^3/uL N 1.0-4.8 Abs Monocytes 0.7 10^3/uL N 0-0.8 Abs Eosinophils 0.2 10^3/uL N 0-0.6 Abs Basophils 0.1 10^3/uL N 0-0.2 Abs Nucleated RBC 0 10^3/uL Granulocyte % 51.6 % Lymphocyte % 35.0 % Monocyte % 10.0 % Eosinophil % 2.6 % Basophil % 0.8 % Nucleated Red Blood Cells % 0.1 Iron & Iron Binding 03/23/2018 [facility] Iron 66 g/dL N 50- 212 [address] [place] [address] [phone] Unsaturated Iron Binding < 311 g/dL Total Iron Binding Capacity 326 g/dL N 250-450 Transferrin 233 mg/dL N 203-362 % Iron Saturation 20 % N 15-55 Laboratory test 03/23/2018 [facility] Ferritin 141.3 ng/mL N 11-307 finding [address] [place] [address] [phone] C Reactive Protein 14.19 mg/L High <8.01 Erythrocyte Sed Rate 90 mm/Hr High 0-30 CBC Auto Diff 01/03/2018 [facility] White Blood 6.5 10^3/uL N 3.5-10.[address] [place] [address] [phone] Red Blood Count 3.71 10^6/uL Low 4.00-5.40 Hemoglobin 11.7 g/dL Low 12.0-16.0 Hematocrit 36 % N 35-47 Mean Corpuscular Volume 96 fL N 80-97 Mean Corpuscular Hemoglobin 32 pg High 27-31 Mean Corpuscular HGB Conc 33 g/dL N 31-36 Red Cell Distribution Width 14 % N 10.5-15 Platelet Count 301 10^3/uL N 150-450 Mean Platelet Volume 8.0 um3 N 7.4-10.4 Abs Neutrophils 3.3 10^3/uL N 1.5-7.7 Abs Lymphocytes 2.4 10^3/uL N 1.0-4.8 Abs Monocytes 0.6 10^3/uL N 0-0.8 Abs Eosinophils 0.2 10^3/uL N 0-0.6 Abs Basophils 0 10^3/uL N 0-0.2 Abs Nucleated RBC 0 10^3/uL Granulocyte % 50.9 % N 38-83 Lymphocyte % 37.3 % N 25-47 Monocyte % 8.8 % High 0-7 Eosinophil % 2.5 % N 0-6 Basophil % 0.5 % N 0-2 Nucleated Red Blood Cells % 0 Laboratory test 01/03/2018 [facility] TSH (Thyroid 3.31 mcIU/mL N 0.34-5.[address] Stim Horm) [place] [address] [phone] Free T4 (Free Thyroxine) 0.73 ng/dL N 0.61-1.12 Lipid Profile 01/03/2018 [facility] Triglycerides 137 mg/dL 3 (Trig/Chol/HDL) [address] [place] [address] [phone] Cholesterol 195 mg/dL 4 HDL Cholesterol 82.7 mg/dL 5 LDL Cholesterol 85 mg/dL 6 Comp Metabolic Panel 01/03/2018 [facility] Sodium 139 mmol/L N 135-145 [address] [place] [address] [phone] Potassium 4.5 mmol/L N 3.5-5.0 Chloride 103 mmol/L N 101-111 Co2 Carbon Dioxide 28 mmol/L N 22-32 Anion Gap 8 mmol/L N 2-11 Glucose 96 mg/dL N 70-100 Blood Urea Nitrogen 11 mg/dL N 6-24 Creatinine 0.78 mg/dL N 0.51-0.95 BUN/Creatinine Ratio 14.1 N 8-20 Calcium 9.8 mg/dL N 8.6-10.3 Total Protein 7.2 g/dL N 6.4-8.9 Albumin 4.4 g/dL N 3.2-5.2 Globulin 2.8 g/dL N 2-4 Albumin/Globulin Ratio 1.6 N 1-3 Total Bilirubin 0.50 mg/dL N 0.2-1.0 Alkaline Phosphatase 116 U/L High 34-104 Alt 40 U/L N 7-52 Ast 38 U/L N 13-39 Egfr Non- 74.8 >60 Egfr 90.6 >60 7 Lipid Panel - 01/03/2018 [facility] Creatine 104 U/L N 10-[address] Kinase(CK) [place] [address] [phone] Laboratory test 01/03/2018 [facility] B-Type Natriuretic 44 pg/ mL [address] [place] [address] [phone] Laboratory test 04/18/2017 [facility] Magnesium 2.0 N 1.9-2.[address] mg/[place] [address] [phone] Lipid Profile 04/18/2017 [facility] Triglycerides 139 9 (Trig/Chol/HDL) [address] mg/[place] [address] [phone] HDL Cholesterol 74.1 mg/dL 10 Cholesterol 204 mg/dL 11 LDL Cholesterol 102 mg/dL 12 Comp Metabolic Panel 04/18/2017 [facility] Sodium 136 mmol/L N 133-[address] [place] [address] [phone] Potassium 4.5 mmol/L N 3.5-5.0 Chloride 103 mmol/L N 101-111 Co2 Carbon Dioxide 27 mmol/L N 22-32 Anion Gap 6 mmol/L N 2-11 Glucose 99 mg/dL N 70-100 Blood Urea Nitrogen 11 mg/dL N 6-24 Creatinine 0.80 mg/dL N 0.51-0.95 BUN/Creatinine Ratio 13.8 N 8-20 Calcium 9.9 mg/dL N 8.6-10.3 Total Protein 7.1 g/dL N 6.4-8.9 Albumin 4.5 g/dL N 3.2-5.2 Globulin 2.6 g/dL N 2-4 Albumin/Globulin Ratio 1.7 N 1-3 Total Bilirubin 0.60 mg/dL N 0.2-1.0 Alkaline Phosphatase 113 U/L High 34-104 Alt 31 U/L N 7-52 Ast 36 U/L N 13-39 Egfr Non- 72.7 >60 Egfr 93.5 >60 13 Lipid Panel - 04/18/2017 [facility] Creatine 70 U/L N 10-[address] Kinase(CK) [place] [address] [phone] Laboratory test 08/11/2016 [facility] TSH (Thyroid 2.20 N 0.34 -5.[address] Stim Horm) mcIU/[place] [address] [phone] Free T4 (Free Thyroxine) 0.61 ng/dL N 0.61-1.12 Iron & Iron Binding 08/11/2016 [facility] Iron 65 g/dL N 50- [address] [place] [address] [phone] Unsaturated Iron Binding 243 g/dL N Total Iron Binding Capacity 308 g/dL N 250-450 % Iron Saturation 21 % N 15-55 CBC Auto Diff 08/11/2016 [facility] White Blood 7.1 10^3/uL N 3.5-10.[address] [place] [address] [phone] Red Blood Count 3.95 10^6/uL Low 4.0-5.4 Hemoglobin 11.8 g/dL Low 12.0-16.0 Hematocrit 37 % N 35-47 Mean Corpuscular Volume 93 fL N 80-97 Mean Corpuscular Hemoglobin 30 pg N 27-31 Mean Corpuscular HGB Conc 32 g/dL N 31-36 Red Cell Distribution Width 14 % N 10.5-15 Platelet Count 221 10^3/uL N 150-450 Mean Platelet Volume 9 um3 N 7.4-10.4 Abs Neutrophils 4.2 10^3/uL N 1.5-7.7 Abs Lymphocytes 1.7 10^3/uL N 1.0-4.8 Abs Monocytes 0.7 10^3/uL N 0-0.8 Abs Eosinophils 0.5 10^3/uL N 0-0.6 Abs Basophils 0 10^3/uL N 0-0.2 Abs Nucleated RBC 0 10^3/uL N Granulocyte % 58.7 % N 38-83 Lymphocyte % 24.0 % Low 25-47 Monocyte % 9.4 % High 1-9 Eosinophil % 7.4 % High 0-6 Basophil % 0.5 % N 0-2 Nucleated Red Blood Cells % 0 N Vitamin B12 And 08/11/2016 [facility] Vitamin B12 553 pg/mL N 180-914 14 Folate Serum [address] [place] [address] [phone] Folic Acid (Folate) 8.26 ng/mL N >3.99 Lipid Profile 08/11/2016 [facility] Triglycerides 122 mg/dL N 15 (Trig/Chol/HDL) [address] [place] [address] [phone] Cholesterol 179 mg/dL N 16 HDL Cholesterol 60.3 mg/dL N 17 LDL Cholesterol 94 mg/dL N 18 Comp Metabolic Panel 08/11/2016 [facility] Sodium 139 mmol/L N 133-[address] [place] [address] [phone] Potassium 4.1 mmol/L N 3.5-5.0 Chloride 102 mmol/L N 101-111 Co2 Carbon Dioxide 31 mmol/L N 22-32 Anion Gap 6 mmol/L N 2-11 Glucose 105 mg/dL High 70-100 Blood Urea Nitrogen 8 mg/dL N 6-24 Creatinine 0.83 mg/dL N 0.51-0.95 BUN/Creatinine Ratio 9.6 N 8-20 Calcium 9.3 mg/dL N 8.6-10.3 Total Protein 6.6 g/dL N 6.4-8.9 Albumin 3.9 g/dL N 3.2-5.2 Globulin 2.7 g/dL N 2-4 Albumin/Globulin Ratio 1.4 N 1-3 Total Bilirubin 0.40 mg/dL N 0.2-1.0 Alkaline Phosphatase 88 U/L N 34-104 Alt 23 U/L N 7-52 Ast 29 U/L N 13-39 Egfr Non- 69.9 N >60 Egfr 89.9 N >60 19 Lipid Panel - 08/11/2016 [facility] Creatine 69 U/L N 10-[address] Kinase(CK) [place] [address] [phone] CBC Auto Diff 06/20/2015 [facility] White Blood Count 7.3 N 3.5-10.[address] 10^3/[place] [address] [phone] Red Blood Count 3.61 10^6/uL Low 4.0-5.4 Hemoglobin 11.0 g/dL Low 12.0-16.0 Hematocrit 33 % Low 35-47 Mean Corpuscular Volume 91 fL N 80-97 Mean Corpuscular Hemoglobin 30 pg N 27-31 Mean Corpuscular HGB Conc 33 g/dL N 31-36 Red Cell Distribution Width 14 % N 10.5-15 Platelet Count 335 10^3/uL N 150-450 Mean Platelet Volume 8 um3 N 7.4-10.4 Abs Neutrophils 4.8 10^3/uL N 1.5-7.7 Abs Lymphocytes 1.7 10^3/uL N 1.0-4.8 Abs Monocytes 0.6 10^3/uL N 0-0.8 Abs Eosinophils 0.2 10^3/uL N 0-0.6 Abs Basophils 0 10^3/uL N 0-0.2 Abs Nucleated RBC 0 10^3/uL N Granulocyte % 65.6 % N 38-83 Lymphocyte % 22.7 % Low 25-47 Monocyte % 8.3 % N 1-9 Eosinophil % 3.1 % N 0-6 Basophil % 0.3 % N 0-2 Nucleated Red Blood Cells % 0 N Lipid Panel - 06/20/2015 [facility] Creatine 67 U/L N 10-223 [address] Kinase(CK) [place] [address] [phone] Comp Metabolic 06/20/2015 [facility] Sodium 135 N 133-[address] mmol/[place] [address] [phone] Potassium 4.2 mmol/L N 3.5-5.0 Chloride 99 mmol/L Low 101-111 Co2 Carbon Dioxide 30 mmol/L N 22-32 Anion Gap 6 mmol/L N 2-11 Glucose 96 mg/dL N 70-100 Blood Urea Nitrogen 6 mg/dL N 6-24 Creatinine 0.82 mg/dL N 0.51-0.95 BUN/Creatinine Ratio 7.3 Low 8-20 Calcium 9.0 mg/dL N 8.6-10.3 Total Protein 6.4 g/dL N 6.4-8.9 Albumin 3.8 g/dL N 3.2-5.2 Globulin 2.6 g/dL N 2-4 Albumin/Globulin Ratio 1.5 N 1-3 Total Bilirubin 0.30 mg/dL N 0.2-1.0 Alkaline Phosphatase 62 U/L N 34-104 Alt 13 U/L N 7-52 Ast 16 U/L N 13-39 Egfr Non- 71.1 N >60 Egfr 91.5 N >60 21 Lipid Profile 06/20/2015 [facility] Triglycerides 90 mg/dL N 22 (Trig/Chol/HDL) [address] [place] [address] [phone] Cholesterol 150 mg/dL N 23 HDL Cholesterol 48.6 mg/dL N 24 LDL Cholesterol 83 mg/dL N 25 Laboratory test 06/20/2015 [facility] TSH (Thyroid 3.04 ?IU/mL N 0.34-5.60 [address] Stim Horm) [place] [address] [phone] Magnesium 1.9 mg/dL N 1.9-2.7 27 CBC Auto Diff 08/23/2014 [facility] White Blood 5.1 10^3/uL N 4.8-10.[address] [place] [address] [phone] Red Blood Count 3.63 10^6/uL Low 4.0-5.4 Hemoglobin 11.3 g/dL Low 12.0-16.0 Hematocrit 35 % N 35-47 Mean Corpuscular Volume 96 fL N 80-97 Mean Corpuscular Hemoglobin 31 pg N 27-31 Mean Corpuscular HGB Conc 32 g/dL N 31-36 Red Cell Distribution Width 13 % N 10.5-15 Platelet Count 235 10^3/uL N 150-450 Mean Platelet Volume 8 um3 N 7.4-10.4 Abs Neutrophils 2.5 10^3/uL N 1.5-7.7 Abs Lymphocytes 1.8 10^3/uL N 1.0-4.8 Abs Monocytes 0.6 10^3/uL N 0-0.8 Abs Eosinophils 0.2 10^3/uL N 0-0.6 Abs Basophils 0 10^3/uL N 0-0.2 Abs Nucleated RBC 0 10^3/uL N Granulocyte % 48.2 % N 38-83 Lymphocyte % 34.9 % N 25-47 Monocyte % 11.7 % High 1-9 Eosinophil % 4.3 % N 0-6 Basophil % 0.9 % N 0-2 Nucleated Red Blood Cells % 0.1 N Comp Metabolic Panel 08/23/2014 [facility] Sodium 138 mmol/L N 133-145 [address] [place] [address] [phone] Potassium 4.3 mmol/L N 3.5-5.0 Chloride 101 mmol/L N 101-111 Co2 Carbon Dioxide 34 mmol/L High 22-32 Anion Gap 3 mmol/L N 2-11 Glucose 91 mg/dL N 70-100 Blood Urea Nitrogen 7 mg/dL N 6-24 Creatinine 0.77 mg/dL N 0.51-0.95 BUN/Creatinine Ratio 9.1 N 8-20 Calcium 9.1 mg/dL N 8.6-10.3 Total Protein 6.3 g/dL Low 6.4-8.9 Albumin 4.2 g/dL N 3.2-5.2 Globulin 2.1 g/dL N 2-4 Albumin/Globulin Ratio 2.0 N 1-3 Total Bilirubin 0.40 mg/dL N 0.2-1.0 Alkaline Phosphatase 54 U/L N 34-104 Alt 19 U/L N 7-52 Ast 21 U/L N 13-39 Egfr Non- 76.7 N >60 Egfr 98.7 N >60 28 Lipid Profile 08/23/2014 [facility] Triglycerides 50 mg/dL N 29 (Trig/Chol/HDL) [address] [place] [address] [phone] Cholesterol 155 mg/dL N 30 HDL Cholesterol 67.9 mg/dL N 31 LDL Cholesterol 77 mg/dL N 32 Laboratory test 08/23/2014 [facility] Creatine 81 U/L N 10- 223 33 finding [address] [facility] Kinase(CK) [place] [address] [phone] TSH (Thyroid Stim Horm) 2.97 ?IU/mL N 0.34-5.60 34 Laboratory 11/28/2013 [facility] Vitamin B12 300 pg/mL N 180- 914 35 test finding [address] [place] [address] [phone] Laboratory 11/19/2013 [facility] Methylmalonic 0.22 N <=0.40 36 test finding [address] [facility] Acid nmol/[place] [address] [phone] Lipid Profile 10/15/2013 [facility] Triglycerides 88 mg/dL N 37, 38 (Trig/Chol/HDL [address] [facility] ) [place] [address] [phone] Cholesterol 178 mg/dL N 39 HDL Cholesterol 62.2 mg/dL N 40 LDL Cholesterol 98 mg/dL N 41 Comp Metabolic Panel 10/15/2013 [facility] Sodium 134 mmol/L N 133-145 [address] [place] [address] [phone] Potassium 3.9 mmol/L N 3.7-5.6 Chloride 98 mmol/L Low 101-111 Co2 Carbon Dioxide 33 mmol/L High 22-32 Anion Gap 3 mmol/L N 2-11 Glucose 88 mg/dL N 70-100 Blood Urea Nitrogen 8 mg/dL N 6-24 Creatinine 0.90 mg/dL N 0.51-0.95 BUN/Creatinine Ratio 8.9 N 8-20 Calcium 9.1 mg/dL N 8.6-10.3 Total Protein 6.5 g/dL N 6.4-8.9 Albumin 4.1 g/dL N 3.2-5.2 Globulin 2.4 g/dL N 2-4 Albumin/Globulin Ratio 1.7 N 1-3 Total Bilirubin 0.40 mg/dL N 0.2-1.0 Alkaline Phosphatase 49 U/L N 34-104 Alt 20 U/L N 7-52 Ast 23 U/L N 13-39 Egfr Non- 64.3 N >60 Egfr 82.7 N >60 42 Laboratory 10/15/2013 [facility] Creatine 87 U/L N 10-223 43 test finding [address] [facility] [place] [address] [phone] Syphilis 09/13/2013 [facility] Syphilis IgG Nonreactive N Nonreactive 44 Screen [address] [place] [address] [phone] RPR TNP N Nonreactive RPR Titer TNP N Pediatric/Maternal NO N Laboratory test 09/13/2013 [facility] TSH (Thyroid 2.27 IU/mL N 0.34-5.[address] [address] Horm) [phone] Free T4 0.75 ng/mL N 0.61-1.12 Vitamin B12 227 pg/mL N 180-914 45 Folate > 20.00 ng/mL N >3.99 Zee (Anti-Nuclear AB) Screen Negative N Negative C Reactive Protein < 1.00 mg/L N < 5.00 46 Basic Metabolic Panel 04/05/2012 [facility] Sodium 136 mmol/L 133-[address] [place] [address] [phone] Potassium 4.1 mmol/L 3.5-5.0 Chloride 98 mmol/L Low 101-111 Co2 Carbon Dioxide 29.0 mmol/L 22-32 Anion Gap 9.0 mmol/L 2-11 Glucose 98 mg/dL 70-100 Blood Urea Nitrogen 12 mg/dL 6-24 Creatinine 0.80 mg/dL 0.50-1.40 BUN/Creatinine Ratio 15.0 8-20 Calcium 9.7 mg/dL 8.1-9.9 Egfr Non- 73.9 >60 Egfr 95.1 >60 47 Cath Panel 03/01/2012 [facility] Activated 33.0 Sec 22.18- 37.[address] [place] [address] Time [phone] CBC With 03/01/2012 [facility] White Blood 5.2 4.8-10.8 Manual Diff [address] Count 10^3/[place] [address] [phone] Red Blood Count 3.62 10^6/uL Low 4.0-5.4 Hemoglobin 12.1 g/dL 12.0-16.0 Hematocrit 36 % 35-47 Mean Corpuscular Volume 99 fL High 80-97 Mean Corpuscular Hemoglobin 34 pg High 27-31 Mean Corpuscular HGB Conc 34 g/dL 31-36 Red Cell Distribution Width 14 % 10.5-15 Platelet Count 280 10^3/uL 150-450 Mean Platelet Volume 8 um3 7.4-10.4 Abs Neutrophils 3.0 10^3/uL 1.5-7.7 Abs Lymphocytes 1.4 10^3/uL 1.0-4.8 Abs Monocytes 0.7 10^3/uL 0-0.8 Abs Eosinophils 0.1 10^3/uL 0-0.6 Abs Basophils 0 10^3/uL 0-0.2 Abs Nucleated RBC 0 10^3/uL Neutrophil % 48.0 % 38-83 Band % 5.0 % 0-8 Lymphocytes % 28.0 % 25-47 Monocytes % 14.0 % High 0-13 Eosinophils % 5.0 % 0-6 Basophil % 0 % 0-2 Reactive Lymph % 0 % 0-6 Metamyelocytes % 0 % 0-2 Myelocytes % 0 % 0-1 Promyelocytes % 0 % Blast % 0 % Polychromasia 1+ Basic Metabolic Panel 03/01/2012 [facility] Sodium 138 mmol/L 133-145 [address] [place] [address] [phone] Potassium 3.7 mmol/L 3.5-5.0 Chloride 102 mmol/L 101-111 Co2 Carbon Dioxide 29.0 mmol/L 22-32 Anion Gap 7.0 mmol/L 2-11 Glucose 91 mg/dL 70-100 Blood Urea Nitrogen 5 mg/dL Low 6-24 Creatinine 0.70 mg/dL 0.50-1.40 BUN/Creatinine Ratio 7.1 Low 8-20 Calcium 8.8 mg/dL 8.1-9.9 Egfr Non- 86.6 >60 Egfr 111.3 >60 49 Inr/Protime 03/01/2012 [facility] Inr 0.97 0.82-1.[address] [place] [address] [phone] CBC Auto Diff 02/22/2012 [facility] White Blood 6.3 10^3/uL 4.8-10.[address] [place] [address] [phone] Red Blood Count 3.54 10^6/uL Low 4.0-5.4 Hemoglobin 11.8 g/dL Low 12.0-16.0 Hematocrit 35 % 35-47 Mean Corpuscular Volume 98 fL High 80-97 Mean Corpuscular Hemoglobin 33 pg High 27-31 Mean Corpuscular HGB Conc 34 g/dL 31-36 Red Cell Distribution Width 14 % 10.5-15 Platelet Count 351 10^3/uL 150-450 Mean Platelet Volume 8 um3 7.4-10.4 Abs Neutrophils 4.4 10^3/uL 1.5-7.7 Abs Lymphocytes 1.0 10^3/uL 1.0-4.8 Abs Monocytes 0.7 10^3/uL 0-0.8 Abs Eosinophils 0.1 10^3/uL 0-0.6 Abs Basophils 0 10^3/uL 0-0.2 Abs Nucleated RBC 0 10^3/uL Granulocyte % 69.6 % 38-83 Lymphocyte % 16.2 % Low 25-47 Monocyte % 11.9 % High 1-9 Eosinophil % 1.7 % 0-6 Basophil % 0.6 % 0-2 Nucleated Red Blood Cells % 0 Laboratory test 02/22/2012 [facility] B Type 50.0 pg/mL 0- 100 finding [address] [place] [address] Peptide [phone] Basic Metabolic 02/22/2012 [facility] Sodium 139 mmol/L 133- 145 Panel [address] [place] [address] [phone] Potassium 3.5 mmol/L 3.5-5.0 Chloride 104 mmol/L 101-111 Co2 Carbon Dioxide 29.0 mmol/L 22-32 Anion Gap 6.0 mmol/L 2-11 Glucose 113 mg/dL High 70-100 Blood Urea Nitrogen 5 mg/dL Low 6-24 Creatinine 0.80 mg/dL 0.50-1.40 BUN/Creatinine Ratio 6.3 Low 8-20 Calcium 9.3 mg/dL 8.1-9.9 Egfr Non- 74.2 >60 Egfr 95.4 >60 51 Iron & Iron Binding 02/22/2012 [facility] Iron 44 UG/ML 28- 170 Capacity [address] [place] [address] [phone] Unsaturated Iron Binding 221 g/dL Total Iron Binding Capacity 265 g/dL 250-450 Transferrin 189.1 % Iron Saturation 17 % 15-55 Laboratory test 02/22/2012 [facility] Vitamin B12 612 pg/mL 180-914 finding [address] [place] [address] [phone] Folate > 25.8 NG/ML High 2-16 Lipid Panel - 09/21/2011 [facility] CPK (Creatine 203 U/L High 0-170 [address] Kinase) [place] [address] [phone] Comp Metabolic 09/21/2011 [facility] Sodium 137 135-[address] mmol/[place] [address] [phone] Potassium 4.5 mmol/L 3.5-5.0 Chloride 100 mmol/L Low 101-111 Co2 (Carbon Dioxide) 32.0 mmol/L 22-32 Anion Gap 5.0 mmol/L 2-11 53 Glucose 103 mg/dL High 70-100 BUN 6 mg/dL 6-24 Creatinine 0.8 mg/dL 0.50-1.40 One Over Creatinine 1.25 BUN/Creatinine Ratio 7.5 Low 8-20 Calcium 9.5 mg/dL 8.1-9.9 Total Protein 6.4 GM/DL 6.2-8.1 Albumin 4.0 GM/DL 3.6-5.4 Globulin 2.4 GM/DL 2-4 Albumin/Globulin Ratio 1.7 1-3 Bilirubin Total 0.5 mg/dL 0.4-1.5 54 Alkaline Phosphatase 48 U/L 30-110 Alt (SGPT) 16 U/L 14-54 Ast (Sgot) 25 U/L 12-42 eGFR Non- 74.2 > 60 eGFR 95.4 > 60 55 Lipid Profile 09/21/2011 [facility] Triglyceride 96 mg/dL 40- 200 (Trig/Chol/HDL) [address] [place] [address] [phone] Cholesterol 191 mg/dL Less Than 200 56 High Density Lipoprotein 91 mg/dL High 40-60 57 Cholesterol/HDL Ratio 2.10 AVERAGE 1-4.44 Low Density Lipoprotein 81 mg/dL Less Than 100 58 CBC With Manual 09/15/2010 [facility] White Blood 5.5 CUMM 4.8-10.[address] [place] [address] [phone] Red Cell Count 3.49 CUMM Low 4.2-5.4 Hemoglobin 11.8 g/dL Low 12.0-16.0 Hematocrit 35 % 35-47 Mean Corpuscular Volume 101 um3 High 79-97 Mean Corpuscular Hemoglob 34 pg High 27-31 Mean Corpuscular HGB Cone 33 g/dL 32-36 Redcell Distribution WDTH 13 % 10.5-15 Platelet Count 296 CUMM 150-450 Mean Platelet Volume 7.6 um3 7.4-10.4 Polysegmented Neutrophil 75 % 38-83 Lymphocyte 22 % Low 25-47 Monocyte 3 % 0-13 Absolute Neutrophil Count 4.1 Anisocytosis SLIGHT Macrocytosis SLIGHT Basic Metabolic Panel 09/02/2010 [facility] Sodium 135 mmol/L 135-145 [address] [place] [address] [phone] Potassium 4.3 mmol/L 3.5-5.0 Chloride 102 mmol/L 101-111 Co2 (Carbon Dioxide) 27.0 mmol/L 22-32 Anion Gap 6.0 mmol/L 2-11 59 Glucose 100 mg/dL 70-100 BUN 10 mg/dL 6-24 Creatinine 0.73 mg/dL 0.50-1.40 One Over Creatinine 1.30 BUN/Creatinine Ratio 13.7 8-20 Calcium 9.4 mg/dL 8.1-9.9 eGFR Non- 82.8 > 60 eGFR 106.4 > 60 60 Basic Metabolic Panel 08/21/2010 [facility] Sodium 135 mmol/L 135-145 [address] [place] [address] [phone] Potassium 4.3 mmol/L 3.5-5.0 Chloride 99 mmol/L Low 101-111 Co2 (Carbon Dioxide) 28.0 mmol/L 22-32 Anion Gap 8.0 mmol/L 2-11 61 Glucose 98 mg/dL 70-100 BUN 10 mg/dL 6-24 Creatinine 0.80 mg/dL 0.50-1.40 One Over Creatinine 1.20 BUN/Creatinine Ratio 12.5 8-20 Calcium 9.7 mg/dL 8.1-9.9 eGFR Non- 74.5 > 60 eGFR 95.8 > 60 62 Laboratory test finding 07/20/2010 [facility] LDH 149 U/L 95- [address] [place] [address] [phone] Direct Antiglobulin Test NEGATIVE 63 CBC With Manual 07/20/2010 [facility] White Blood 4.9 CUMM 4.8-10.[address] [place] [address] [phone] Red Cell Count 3.62 CUMM Low 4.2-5.4 Hemoglobin 12.0 g/dL 12.0-16.0 Hematocrit 35 % 35-47 Mean Corpuscular Volume 97 um3 79-97 Mean Corpuscular Hemoglob 33 pg High 27-31 Mean Corpuscular HGB Cone 34 g/dL 32-36 Redcell Distribution WDTH 14 % 10.5-15 Platelet Count 339 CUMM 150-450 Mean Platelet Volume 8.2 um3 7.4-10.4 Polysegmented Neutrophil 49 % 38-83 Lymphocyte 41 % 25-47 Monocyte 5 % 0-13 Eosinophil 2 % 0-6 Basophil 3 % High 0-2 Absolute Neutrophil Count 2.4 RBC Morphology NORMAL Retic Count 07/20/2010 [facility] Reticulocyte Count 1.46 % 0.5-1.5 [address] [place] [address] [phone] Corrected Retic 1.1 % 0.5-1.5 Retic Index 0.7 Mean Retic Volume 119.3 Immature Retic Fraction 0.28 RBC Retic Count 3.62 CUMM Low 4.6-6.2 Hematocrit For Retic Coun 35 % 35-47 Protein 07/20/2010 [facility] Albumin 3.47 GM/DL 3.0-4.35 Electrophoresis Serum [address] [place] [address] [phone] Alpha 1 0.18 GM/DL 0.09-0.33 Alpha 2 0.96 GM/DL 0.59-1.18 Beta 1.00 GM/DL 0.68-1.02 Gamma 0.79 GM/DL 0.76-1.60 Albumin % 54.2 % 46-63 Alpha 1 % 2.8 % 1.2-5.3 Alpha 2 % 15.0 % 9-17 Beta % 15.6 % 10-16 Gamma % 12.3 % 12-22 A/G Ratio 1.2 0.9-2 Total Protein 6.4 GM/DL 6.2-8.1 Spep Comments (SEE NOTE) 64 Cath Panel 06/26/2009 [facility] PTT (Aptt) 33.6 25.15-38.53 65, 66 [address] [place] [address] [phone] CBC With 06/26/2009 [facility] White Blood 7.1 CUMM 4.8-10.8 Manual Diff [address] [place] [address] [phone] Red Cell Count 3.82 CUMM Low 4.2-5.4 Hemoglobin 11.9 g/dL Low 12.0-16.0 Hematocrit 35 % 35-47 Mean Corpuscular Volume 91 um3 79-97 Mean Corpuscular Hemoglob 31 pg 27-31 Mean Corpuscular HGB Cone 34 g/dL 32-36 Redcell Distribution WDTH 14 % 10.5-15 Platelet Count 278 CUMM 150-450 Mean Platelet Volume 7.7 um3 7.4-10.4 Polysegmented Neutrophil 76 % 38-83 Band Neutrophil 1 % 0-8 Lymphocyte 19 % Low 25-47 Monocyte 4 % 0-13 Absolute Neutrophil Count 5.4 Anisocytosis SLIGHT Basic Metabolic 06/26/2009 [facility] Sodium 129 mmol/L Low 135-[address] [place] [address] [phone] Potassium 4.2 mmol/L 3.5-5.0 Chloride 91 mmol/L Low 101-111 Co2 (Carbon Dioxide) 30.0 mmol/L 22-32 Anion Gap 8.0 mmol/L 2-11 67 Glucose 93 mg/dL 70-100 68 BUN 3 mg/dL Low 6-24 Creatinine 0.80 mg/dL 0.50-1.40 One Over Creatinine 1.20 BUN/Creatinine Ratio 3.8 Low 8-20 Calcium 8.9 mg/dL 8.1-9.9 69 eGFR Non- 79.4 > 60 eGFR 96.1 > 60 70 Protime 06/26/2009 [facility] Inr 0.97 0.97-1.[address] [place] [address] [phone] Protime 11.5 SEC 11.5-12.2 72 Basic Metabolic 07/11/2008 [facility] Sodium 131 mmol/L Low 135-[address] [place] [address] [phone] Potassium 4.3 mmol/L 3.5-5.0 Chloride 96 mmol/L Low 101-111 Co2 (Carbon Dioxide) 28.0 mmol/L 22-32 Anion Gap 7.0 mmol/L 2-11 73 Glucose 94 mg/dL 70-100 74 BUN 5 mg/dL Low 6-24 Creatinine 0.80 mg/dL 0.50-1.40 One Over Creatinine 1.20 BUN/Creatinine Ratio 6.3 Low 8-20 Calcium 9.0 mg/dL 8.1-9.9 75 Comp Metabolic Panel 05/02/2008 [facility] Sodium 137 mmol/L 135-[address] [place] [address] [phone] Potassium 4.2 mmol/L 3.5-5.0 Chloride 100 mmol/L Low 101-111 Co2 (Carbon Dioxide) 32.0 mmol/L 22-32 Anion Gap 5.0 mmol/L 2-11 77 Glucose 97 mg/dL 70-100 78 BUN 3 mg/dL Low 6-24 Creatinine 0.80 mg/dL 0.50-1.40 One Over Creatinine 1.20 BUN/Creatinine Ratio 3.8 Low 8-20 Calcium 9.3 mg/dL 8.1-9.9 79 Total Protein 6.0 GM/DL Low 6.2-8.1 Albumin 3.7 GM/DL 3.6-5.4 Globulin 2.3 GM/DL 2-4 Albumin/Globulin Ratio 1.6 1-3 Bilirubin Total 0.4 mg/dL 0.4-1.5 Alkaline Phosphatase 63 U/L 30-110 Alt (SGPT) 15 U/L 14-54 Ast (Sgot) 22 U/L 12-42 Lipid Profile 05/02/2008 [facility] Triglyceride 162 mg/dL 40 -200 (Trig/Chol/HDL) [address] [place] [address] [phone] Cholesterol 174 mg/dL Less Than 200 80 High Density Lipoprotein 57 mg/dL 40-60 81 Cholesterol/HDL Ratio 3.05 AVERAGE 1-4.44 Low Density Lipoprotein 85 mg/dL Less Than 100 82 Laboratory test 05/02/2008 [facility] CPK (Creatine 89 U/L 0- [address] Kinase) [place] [address] [phone] CBC With Manual 05/02/2008 [facility] White Blood 5.4 CUMM 4.8-10.[address] [place] [address] [phone] Red Cell Count 3.83 CUMM Low 4.2-5.4 Hemoglobin 11.7 g/dL Low 12.0-16.0 Hematocrit 34 % Low 35-47 Mean Corpuscular Volume 89 um3 79-97 Mean Corpuscular Hemoglob 31 pg 27-31 Mean Corpuscular HGB [facility] 34 g/dL 32-36 Redcell Distribution WDTH 13 % 10.5-15 Platelet Count 287 CUMM 150-450 Mean Platelet Volume 7.1 um3 Low 7.4-10.4 Polysegmented Neutrophil 53 % 38-83 Lymphocyte 36 % 25-47 Monocyte 6 % 0-13 Eosenophil 1 % 0-6 Basophil 1 % 0-2 Atypical Lymph 3 % 0-6 Absolute Neutrophil Count 2.8 RBC Morphology NORMAL Laboratory test 05/02/2008 [facility] TSH 2.13 MIU/ML 0.34- 5.60 finding [address] [place] [address] [phone] 1 Because ethnic data is not always readily available, this report includes an eGFR for both -Americans and non- Americans. The National Kidney Disease Education Program (NKDEP) does not endorse the use of the MDRD equation for patients that are not between the ages of 18 and 70, are , have extremes of body size, muscle mass, or nutritional status, or are non- or non-. According to the [employer], irrespective of diagnosis, the stage of the disease is based on the level of kidney function: Stage Description GFR(mL/min/1.73 m(2)) 1 Kidney damage with normal or decreased GFR 90 2 Kidney damage with mild decrease in GFR 60-89 3 Moderate decrease in GFR 30-59 4 Severe decrease in GFR 15-29 5 Kidney failure <15 (or dialysis) 2 Because ethnic data is not always readily available, this report includes an eGFR for both -Americans and non- Americans. The National Kidney Disease Education Program (NKDEP) does not endorse the use of the MDRD equation for patients that are not between the ages of 18 and 70, are , have extremes of body size, muscle mass, or nutritional status, or are non- or non-. According to the [employer], irrespective of diagnosis, the stage of the disease is based on the level of kidney function: Stage Description GFR(mL/min/1.73 m(2)) 1 Kidney damage with normal or decreased GFR 90 2 Kidney damage with mild decrease in GFR 60-89 3 Moderate decrease in GFR 30-59 4 Severe decrease in GFR 15-29 5 Kidney failure <15 (or dialysis) 3 Desirable: <150 Borderline High: 150-199 High: 200-499 Very High: >500 4 Desirable: <200 Borderline High: 200-239 High: >239 5 Low: <40 Desirable: 40-60 High: >60 6 Desirable: <100 Near Optimal: 100-129 Borderline High: 130-159 High: 160-189 Very High: >189 7 Because ethnic data is not always readily available, this report includes an eGFR for both -Americans and non- Americans. The National Kidney Disease Education Program (NKDEP) does not endorse the use of the MDRD equation for patients that are not between the ages of 18 and 70, are , have extremes of body size, muscle mass, or nutritional status, or are non- or non-. According to the National Kidney Foundation, irrespective of diagnosis, the stage of the disease is based on the level of kidney function: Stage Description GFR(mL/min/1.73 m(2)) 1 Kidney damage with normal or decreased GFR 90 2 Kidney damage with mild decrease in GFR 60-89 3 Moderate decrease in GFR 30-59 4 Severe decrease in GFR 15-29 5 Kidney failure <15 (or dialysis) 8 >100 to <200 pg/mL: likely compensated congestive heart failure (CHF) 200 to 400 pg/mL: likely moderate CHF >400 pg/mL: likely moderate to severe CHF 9 Desirable: <150 Borderline High: 150-199 High: 200-499 Very High: >500 10 Low: <40 Desirable: 40-60 High: >60 11 Desirable: <200 Borderline High: 200-239 High: >239 12 Desirable: <100 Near Optimal: 100-129 Borderline High: 130-159 High: 160-189 Very High: >189 13 Because ethnic data is not always readily available, this report includes an eGFR for both -Americans and non- Americans. The National Kidney Disease Education Program (NKDEP) does not endorse the use of the MDRD equation for patients that are not between the ages of 18 and 70, are , have extremes of body size, muscle mass, or nutritional status, or are non- or non-. According to the National Kidney Foundation, irrespective of diagnosis, the stage of the disease is based on the level of kidney function: Stage Description GFR(mL/min/1.73 m(2)) 1 Kidney damage with normal or decreased GFR 90 2 Kidney damage with mild decrease in GFR 60-89 3 Moderate decrease in GFR 30-59 4 Severe decrease in GFR 15-29 5 Kidney failure <15 (or dialysis) 14 Normal Range 180 to 914 Indeterminate Range 145 to 180 Deficient Range <145 15 Desirable <150 Borderline high 150-199 High 200-499 Very High >500 16 Desirable <200 Borderline high 200-239 High >239 17 Low <40 Desirable: 40-60 High: >60 18 Desirable: <100 mg/dL Near Optimal: 100-129 mg/dL Borderline High: 130-159 mg/dL High: 160-189 mg/dL Very High: >189 mg/dL 19 Because ethnic data is not always readily available, this report includes an eGFR for both -Americans and non- Americans. The National Kidney Disease Education Program (NKDEP) does not endorse the use of the MDRD equation for patients that are not between the ages of 18 and 70, are , have extremes of body size, muscle mass, or nutritional status, or are non- or non-. According to the National Kidney Foundation, irrespective of diagnosis, the stage of the disease is based on the level of kidney function: Stage Description GFR(mL/min/1.73 m(2)) 1 Kidney damage with normal or decreased GFR 90 2 Kidney damage with mild decrease in GFR 60-89 3 Moderate decrease in GFR 30-59 4 Severe decrease in GFR 15-29 5 Kidney failure <15 (or dialysis) 20 FASTING 21 Because ethnic data is not always readily available, this report includes an eGFR for both -Americans and non- Americans. The National Kidney Disease Education Program (NKDEP) does not endorse the use of the MDRD equation for patients that are not between the ages of 18 and 70, are , have extremes of body size, muscle mass, or nutritional status, or are non- or non-. According to the National Kidney Foundation, irrespective of diagnosis, the stage of the disease is based on the level of kidney function: Stage Description GFR(mL/min/1.73 m(2)) 1 Kidney damage with normal or decreased GFR 90 2 Kidney damage with mild decrease in GFR 60-89 3 Moderate decrease in GFR 30-59 4 Severe decrease in GFR 15-29 5 Kidney failure <15 (or dialysis) 22 Desirable <150 Borderline high 150-199 High 200-499 Very High >500 23 Desirable <200 Borderline high 200-239 High >239 24 Low <40 Desirable: 40-60 High: >60 25 Desirable: <100 mg/dL Near Optimal: 100-129 mg/dL Borderline High: 130-159 mg/dL High: 160-189 mg/dL Very High: >189 mg/dL 26 FASTING 27 FASTING 28 Because ethnic data is not always readily available, this report includes an eGFR for both -Americans and non- Americans. The National Kidney Disease Education Program (NKDEP) does not endorse the use of the MDRD equation for patients that are not between the ages of 18 and 70, are , have extremes of body size, muscle mass, or nutritional status, or are non- or non-. According to the National Kidney Foundation, irrespective of diagnosis, the stage of the disease is based on the level of kidney function: Stage Description GFR(mL/min/1.73 m(2)) 1 Kidney damage with normal or decreased GFR 90 2 Kidney damage with mild decrease in GFR 60-89 3 Moderate decrease in GFR 30-59 4 Severe decrease in GFR 15-29 5 Kidney failure <15 (or dialysis) 29 Desirable <150 Borderline high 150-199 High 200-499 Very High >500 30 Desirable <200 Borderline high 200-239 High >239 31 Low <40 Desirable: 40-60 High: >60 32 Desirable: <100 mg/dL Near Optimal: 100-129 mg/dL Borderline High: 130-159 mg/dL High: 160-189 mg/dL Very High: >189 mg/dL 33 FASTING 34 FASTING 35 Normal Range 180 to 914 Indeterminate Range 145 to 180 Deficient Range <145 36 Test Performed by: [facility] [address] [place] [address] Flat Bed Operator: Tariq Jama III, M.D. 37 FASTING~Fasting to be done prior to 10/22 appt with TONI - Pt has appt . Results WNL overall he can discuss at appt 38 Desirable <150 Borderline high 150-199 High 200-499 Very High >500 39 Desirable <200 Borderline high 200-239 High >239 40 Low <40 Desirable: 40-60 High: >60 41 Desirable <100 Near Optimal 100-129 Borderline high 130-159 High 160-189 Very High >189 42 Because ethnic data is not always readily available, this report includes an eGFR for both -Americans and non- Americans. The National Kidney Disease Education Program (NKDEP) does not endorse the use of the MDRD equation for patients that are not between the ages of 18 and 70, are , have extremes of body size, muscle mass, or nutritional status, or are non- or non-. According to the National Kidney Foundation, irrespective of diagnosis, the stage of the disease is based on the level of kidney function: Stage Description GFR(mL/min/1.73 m(2)) 1 Kidney damage with normal or decreased GFR 90 2 Kidney damage with mild decrease in GFR 60-89 3 Moderate decrease in GFR 30-59 4 Severe decrease in GFR 15-29 5 Kidney failure <15 (or dialysis) 43 FASTING Fasting to be done prior to 10/22 appt with TONI 44 Warning: A positive result is not useful for establishing a diagnosis of syphilis. In most situations, such a result may reflect a prior treated infection; a negative result can exclude a diagnosis of syphilis except for incubating or early primary disease. 45 Normal Range 180 to 914 Indeterminate Range 145 to 180 Deficient Range <145 46 Acute inflammation: >10.00 47 Because ethnic data is not always readily available, this report includes an eGFR for both -Americans and non- Americans. The National Kidney Disease Education Program (NKDEP) does not endorse the use of the MDRD equation for patients that are not between the ages of 18 and 70, are , have extremes of body size, muscle mass, or nutritional status, or are non- or non-. According to the National Kidney Foundation, irrespective of diagnosis, the stage of the disease is based on the level of kidney function: Stage Description GFR(mL/min/1.73 m(2)) 1 Kidney damage with normal or decreased GFR 90 2 Kidney damage with mild decrease in GFR 60-89 3 Moderate decrease in GFR 30-59 4 Severe decrease in GFR 15-29 5 Kidney failure <15 (or dialysis) 48 Effective February 09, 2012 new APTT reference and therapeutic values have been implemented. 49 Because ethnic data is not always readily available, this report includes an eGFR for both -Americans and non- Americans. The National Kidney Disease Education Program (NKDEP) does not endorse the use of the MDRD equation for patients that are not between the ages of 18 and 70, are , have extremes of body size, muscle mass, or nutritional status, or are non- or non-. According to the National Kidney Foundation, irrespective of diagnosis, the stage of the disease is based on the level of kidney function: Stage Description GFR(mL/min/1.73 m(2)) 1 Kidney damage with normal or decreased GFR 90 2 Kidney damage with mild decrease in GFR 60-89 3 Moderate decrease in GFR 30-59 4 Severe decrease in GFR 15-29 5 Kidney failure <15 (or dialysis) 50 The INR(International Normalized Ratio) was adopted by the World Health Organization (WHO) in 1983 as a standardized system of reporting PT (Prothrombin Time). The Centers for Disease Control (CDC) states that reporting of PT results in INR only is the preferred method. Recommended INR for Patients on Oral Anticoagulants Prophylaxis 2.0 - 3.0 Treatment of thrombosis 2.0 - 3.0 Prevention of embolism 2.0 - 3.0 Prevention of embolism from prosthetic heart valves 2.5 - 3.5 51 Because ethnic data is not always readily available, this report includes an eGFR for both -Americans and non- Americans. The National Kidney Disease Education Program (NKDEP) does not endorse the use of the MDRD equation for patients that are not between the ages of 18 and 70, are , have extremes of body size, muscle mass, or nutritional status, or are non- or non-. According to the National Kidney Foundation, irrespective of diagnosis, the stage of the disease is based on the level of kidney function: Stage Description GFR(mL/min/1.73 m(2)) 1 Kidney damage with normal or decreased GFR 90 2 Kidney damage with mild decrease in GFR 60-89 3 Moderate decrease in GFR 30-59 4 Severe decrease in GFR 15-29 5 Kidney failure <15 (or dialysis) 52 FASTING 53 Anion gap measurement may be of limited value in the presence of any alkalosis, especially in a combined acid base disorder. . 54 A metabolite of Naproxen, O-desmethylnaproxen, has been shown to interfere with the Jendrassik-Bradford method for measuring total bilirubin. Samples from patients who have taken Naproxen have shown spurious elevation in total bilirubin levels. 55 Because ethnic data is not always readily available, this report includes an eGFR for both -Americans and non- Americans. The National Kidney Disease Education Program (NKDEP) does not endorse the use of the MDRD equation for patients that are not between the ages of 18 and 70, are , have extremes of body size, muscle mass, or nutritional status, or are non- or non-. According to the National Kidney Foundation, irrespective of diagnosis, the stage of the disease is based on the level of kidney function: Stage Description GFR(mL/min/1.73 m(2)) 1 Kidney damage with normal or decreased GFR 90 2 Kidney damage with mild decrease in GFR 60-89 3 Moderate decrease in GFR 30-59 4 Severe decrease in GFR 15-29 5 Kidney failure <15 (or dialysis) 56 CHOLESTEROL INTERPRETATION: Desirable: Less than 200 MG/DL Borderline-High Risk: 200-239 MG/DL High-Risk: 240 MG/DL and over 57 HDL INTERPRETATION: Undesirable: High Risk: Less than 40 MG/DL Desirable: Low Risk: Greater than 60 MG/DL 58 LDL INTERPRETATION: Low Risk Optimal Level: LDL Less than 100 MG/DL Near or Above Optimal: LDL 100-129 MG/DL Borderline High Risk: LDL 130-159 MG/DL High Risk: LDL 160-189 MG/DL Very High Risk: LDL Greater than 189 MG/DL 59 Anion gap measurement may be of limited value in the presence of any alkalosis, especially in a combined acid base disorder. . 60 Because ethnic data is not always readily available, this report includes an eGFR for both -Americans and non- Americans. The National Kidney Disease Education Program (NKDEP) does not endorse the use of the MDRD equation for patients that are not between the ages of 18 and 70, are , have extremes of body size, muscle mass, or nutritional status, or are non- or non-. According to the National Kidney Foundation, irrespective of diagnosis, the stage of the disease is based on the level of kidney function: Stage Description GFR(mL/min/1.73 m(2)) 1 Kidney damage with normal or decreased GFR 90 2 Kidney damage with mild decrease in GFR 60-89 3 Moderate decrease in GFR 30-59 4 Severe decrease in GFR 15-29 5 Kidney failure <15 (or dialysis) 61 Anion gap measurement may be of limited value in the presence of any alkalosis, especially in a combined acid base disorder. . 62 Because ethnic data is not always readily available, this report includes an eGFR for both -Americans and non- Americans. The National Kidney Disease Education Program (NKDEP) does not endorse the use of the MDRD equation for patients that are not between the ages of 18 and 70, are , have extremes of body size, muscle mass, or nutritional status, or are non- or non-. According to the National Kidney Foundation, irrespective of diagnosis, the stage of the disease is based on the level of kidney function: Stage Description GFR(mL/min/1.73 m(2)) 1 Kidney damage with normal or decreased GFR 90 2 Kidney damage with mild decrease in GFR 60-89 3 Moderate decrease in GFR 30-59 4 Severe decrease in GFR 15-29 5 Kidney failure <15 (or dialysis) 63 DIRECT AGUSTIN INTERPRETATION: RESULT: INTERPRETATION: WEAKLY POSITIVE POSITIVE 1+ POSITIVE 2+ POSITIVE 3+ POSITIVE 4+ POSITIVE 64 NORMAL ELECTROPHORETIC PATTERN. [address] ANGEL AT [phone] 66 PLEASE NOTE NEW REFERENCE RANGE EFFECTIVE 08. 67 Anion gap measurement may be of limited value in the presence of any alkalosis, especially in a combined acid base disorder. . 68 Note change in reference range as of 11/30/07. The change was based on recommendations from the [place] [employer]. 69 Please note change in reference range effective 07 . 70 Because ethnic data is not always readily available, this report includes an eGFR for both -Americans and non- Americans. The National Kidney Disease Education Program (NKDEP) does not endorse the use of the MDRD equation for patients that are not between the ages of 18 and 70, are , have extremes of body size, muscle mass, or nutritional status, or are non- or non-. According to the National Kidney Foundation, irrespective of diagnosis, the stage of the disease is based on the level of kidney function: Stage Description GFR(mL/min/1.73 m(2)) 1 Kidney damage with normal or decreased GFR 90 2 Kidney damage with mild decrease in GFR 60-89 3 Moderate decrease in GFR 30-59 4 Severe decrease in GFR 15-29 5 Kidney failure <15 (or dialysis) 71 Recommended INR for Patients on Oral Anticoagulants Prophylaxis 2.0 - 3.0 Treatment of thrombosis 2.0 - 3.0 Prevention of embolism 2.0 - 3.0 Prevention of embolism from prosthetic heart valves 2.5 - 3.5 72 DIAGNOSIS,TREATMENT,AND THERAPY MUST BE BASED ON THE INR VALUE ALONE. 73 Anion gap measurement may be of limited value in the presence of any alkalosis, especially in a combined acid base disorder. . 74 Note change in reference range as of 11/30/07. The change was based on recommendations from the [place] [employer]. 75 Please note change in reference range effective 07 . 76 FASTING 77 Anion gap measurement may be of limited value in the presence of any alkalosis, especially in a combined acid base disorder. . 78 Note change in reference range as of 11/30/07. The change was based on recommendations from the [place] [employer]. 79 Please note change in reference range effective 07 . 80 CHOLESTEROL INTERPRETATION: Desirable: Less than 200 MG/DL Borderline-High Risk: 200-239 MG/DL High-Risk: 240 MG/DL and over 81 HDL INTERPRETATION: Undesirable: High Risk: Less than 40 MG/DL Desirable: Low Risk: Greater than 60 MG/DL 82 LDL INTERPRETATION: Low Risk Optimal Level: LDL Less than 100 MG/DL Near or Above Optimal: LDL 100-129 MG/DL Borderline High Risk: LDL 130-159 MG/DL High Risk: LDL 160-189 MG/DL Very High Risk: LDL Greater than 189 MG/DL Procedures Date Code Description Status 06/21/2018 95107 ECHO Transthoracic, Real-Time 2D With Doppler And Color Completed Flow 06/21/2018 65427 ECHO Transthoracic, Real-Time 2D With Doppler And Color Completed Flow 04/07/2018 09462 Stress Test Completed 04/07/2018 60973 Myocardial Perfusion Imaging Tomographic (Spect) Multiple Completed Studies 03/21/2018 62992 EKG Tracing & Interpretation Completed 03/10/2018 27992 ECHO Transthoracic, Real-Time 2D With Doppler And Color Completed Flow 03/10/2018 79670 ECHO Transthoracic, Real-Time 2D With Doppler And Color Completed Flow 01/23/2018 62979 Holter Monitor Review (24 hr)dr review & interp only Completed 01/20/2018 56709 ECG Monitor/Recording W/Visual Superimposition Scanning Completed 01/09/2018 50842 ECHO Transthoracic, Real-Time 2D With Doppler And Color Completed Flow 01/09/2018 39992 ECHO Transthoracic, Real-Time 2D With Doppler And Color Completed Flow 12/22/2017 42530 EKG Tracing & Interpretation Completed 03/30/2017 62410 ECHO Stress Test Incl Perf Contiuous ekg Monitoring W/Phys Completed Superv 10/13/2016 49568 Inject Tendon Sheath Or Ligament Aponeurosis Eg Plantar Completed Fascia 08/23/2016 28868 ECHO Transthoracic, Real-Time 2D With Doppler And Color Completed Flow 08/10/2016 58797 EKG Tracing & Interpretation Completed 11/25/2015 35959 EKG Tracing & Interpretation Completed 08/15/2015 47467 ECHO Transthoracic, Real-Time 2D With Doppler And Color Completed Flow 07/04/2015 22847 Stress Test Completed 07/04/2015 00656 Myocardial Perfusion Imaging Tomographic (Spect) Multiple Completed Studies 07/04/2015 03667 Myocardial Perfusion Imaging Tomographic (Spect) Multiple Completed Studies 06/19/2015 28535 EKG Tracing & Interpretation Completed 09/06/2014 44099 ECHO Transthoracic, Real-Time 2D With Doppler And Color Completed Flow 08/19/2014 67273 EKG Tracing & Interpretation Completed 01/02/2014 81793 Treadmill Interp/Report Only Completed 01/02/2014 64647 Stress Test Supervsn W/Out I/R Completed 12/26/2013 89173 ECHO Transthoracic, Real-Time 2D With Doppler And Color Completed Flow 11/26/2013 60829 EKG Tracing & Interpretation Completed 10/31/2013 11848 Polysomnography Sleep Staging 4+ Parameters W/Cpap Completed 06/04/2013 04834 ECHO Transthoracic, Real-Time 2D With Doppler And Color Completed Flow 04/19/2013 14221 EKG Tracing & Interpretation Completed 06/27/2012 80966 Rad Exam; Wrist Limited, 2 Views Completed 05/30/2012 40718 Rad Exam; Wrist Limited, 2 Views Completed 05/12/2012 59666 Osteotomy Radius Distal Third Completed 05/12/2012 39990 Osteotomy Radius Distal Third Completed 04/24/2012 10793 Rad Exam; Wrist Limited, 2 Views Completed 03/21/2012 44481 Tendon Transfer CMC/Hand W/O Free Graft Completed 03/21/2012 28197 Tendon Transfer CMC/Hand W/O Free Graft Completed 02/29/2012 71167 Treadmill Interp/Report Only Completed 02/29/2012 94260 Stress Test Supervsn W/Out I/R Completed 02/25/2012 12215 Rad Exam; Hand Comp Completed 02/23/2012 50678 EKG Tracing & Interpretation Completed 02/07/2012 49957 EKG Tracing & Interpretation Completed 02/07/2012 26095 ECHO Stress Test Incl Perf Contiuous ekg Monitoring W/Phys Completed Superv 02/07/2012 59333 ECHO Stress Test Incl Perf Contiuous ekg Monitoring W/Phys Completed Superv 01/06/2012 81644 EKG Tracing & Interpretation Completed 06/25/2011 30354 EKG Tracing & Interpretation Completed 06/17/2011 76121 ECHO Transthoracic, Real-Time 2D With Doppler And Color Completed Flow 12/25/2010 28914 EKG Tracing & Interpretation Completed 06/30/2010 39124 EKG Tracing & Interpretation Completed 06/29/2010 33395 Holter Monitor Completed 06/29/2010 54057 Holter Monitoring 24 HR New Completed 06/19/2010 73173 ECHO Transthoracic, Real-Time 2D With Doppler And Color Completed Flow 06/17/2010 92581 EKG Tracing & Interpretation Completed 06/17/2010 79424 ECHO Stress Test Incl Perf Contiuous ekg Monitoring W/Phys Completed Superv 05/04/2010 79539 ECHO Stress Test Incl Perf Contiuous ekg Monitoring W/Phys Completed Superv 05/04/2010 31098 EKG Tracing & Interpretation Completed 09/23/2009 82316 ECHO Transthoracic, Real-Time 2D With Doppler And Color Completed Flow 06/18/2009 98885 ECHO Stress Test Incl Perf Contiuous ekg Monitoring W/Phys Completed Superv 06/13/2009 54894 EKG Tracing & Interpretation Completed 03/03/2009 35489 Rad Exam; Foot Limited Completed 03/03/2009 36064 Rad Exam; Foot Limited Completed 02/19/2009 01932 ECHO Transthoracic, Real-Time 2D With Doppler And Color Completed Flow 02/10/2009 16378 Rad Exam; Foot Limited Completed 02/10/2009 23173 Rad Exam; Ankle Comp Completed 01/20/2009 87048 CLSD TX Distal Fib FX (Lateral Malleolus) w/o manipulation Completed 01/20/2009 29664 FX Metatarsal Care Completed 12/20/2008 97869 EKG Tracing & Interpretation Completed 07/08/2008 43207 EKG Tracing & Interpretation Completed 06/18/2008 03125 Color Doppler Completed 06/18/2008 98217 Pulse Doppler & Continuous Wave Completed 06/18/2008 68358 Echocardiogram Completed 06/18/2008 25948 ECHO Transthoracic, Real-Time 2D With Doppler And Color Completed Flow 04/19/2008 95943 EKG Tracing & Interpretation Completed 12/04/2007 76680 EKG Tracing & Interpretation Completed 12/04/2007 25248 EKG Tracing & Interpretation Completed 11/14/2007 24768 Echocardiogram Completed 11/14/2007 18978 Echocardiogram Completed 11/14/2007 61682 Echocardiogram Completed 11/14/2007 03441 Pulse Doppler & Continuous Wave Completed 11/14/2007 55652 Pulse Doppler & Continuous Wave Completed 11/14/2007 32612 Color Doppler Completed 11/14/2007 74126 Color Doppler Completed 11/14/2007 73196 Color Doppler Completed 10/25/2007 96799 ECHO/Stress Completed 10/25/2007 20878 ECHO/Stress Completed 10/25/2007 39112 ECHO/Stress Completed 10/25/2007 21331 Stress Test Completed 10/25/2007 51380 Stress Test Completed Encounters Type Date Location Provider Dx Diagnosis Office Visit 04/24/2018 [facility] Andria Curtis, 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 I42.9 Cardiomyopathy, unspecified I34.0 Nonrheumatic mitral (valve) insufficiency R06.00 Dyspnea, unspecified G47.33 Obstructive sleep apnea (adult) (pediatric) E78.00 Pure hypercholesterolemia, unspecified Office Visit 03/21/2018 Shahid Valentine I42.9 Cardiomyopathy, 9:00a Cardiology Danyel Astorga unspecified I34.0 Nonrheumatic mitral (valve) insufficiency R94.31 Abnormal electrocardiogram [ECG] [EKG] I25.10 Athscl heart disease of [place] coronary artery w/o ang pctrs R06.00 Dyspnea, unspecified Office Visit 12/22/2017 2:40p [facility] Seth Valentine I25.10 Athscl heart Danyel [place] disease of [place] coronary artery w/o ang pctrs G47.33 Obstructive sleep apnea (adult) (pediatric) J44.9 Chronic obstructive pulmonary disease, unspecified I42.9 Cardiomyopathy, unspecified E78.00 Pure hypercholesterolemia, unspecified Office Visit 04/06/2017 [facility] And Rosa Maria G47.33 Obstructive sleep 8:00a [facility] Paulino RN, apnea (adult) [facility]- (pediatric) G47.00 Insomnia, unspecified Office Visit 11/05/2016 [facility] And Rosa Maria G47.33 Obstructive sleep 8:45a [facility] Paulino RN, apnea (adult) [facility] (pediatric) G47.00 Insomnia, unspecified Office Visit 10/13/2016 [facility] M65.311 Trigger thumb, 11:00a [facility] right thumb [facility] Office Visit 08/10/2016 [place] Seth Valentine J44.9 Chronic 8:40a Cardiology Danyel Astorga obstructive pulmonary disease, unspecified R53.83 Other fatigue R06.00 Dyspnea, unspecified I25.10 Athscl heart disease of [place] coronary artery w/o ang pctrs G47.33 Obstructive sleep apnea (adult) (pediatric) I42.9 Cardiomyopathy, unspecified R94.31 Abnormal electrocardiogram [ECG] [EKG] Office Visit 07/27/2016 Pulmonology And Rosa Maria G47.00 Insomnia, 8:30a [facility] Paulino RN, unspecified [facility]- G47.33 Obstructive sleep apnea (adult) (pediatric) G47.61 Periodic limb movement disorder R53.83 Other fatigue Office Visit 06/14/2016 Pulmonology And Rosa Maria G47.00 Insomnia, 11:30a [facility] Paul[facility] RN, unspecified [facility] G47.33 Obstructive sleep apnea (adult) (pediatric) G47.61 Periodic limb movement disorder Office Visit 04/09/2016 Pulmonology And Rosa Maria G47.33 Obstructive sleep 9:00a [facility] Paulino RN, apnea (adult) [facility] (pediatric) G47.00 Insomnia, unspecified Office Visit 02/25/2016 8:30a [place] [facility] Martha Silveira, R06.00 Dyspnea, [place] unspecified G47.33 Obstructive sleep apnea (adult) (pediatric) J44.9 Chronic obstructive pulmonary disease, unspecified Office Visit 12/02/2015 Pulmonology And Rosa Maria G47.33 Obstructive sleep 9:30a [facility] Paul[facility] RN, apnea (adult) [facility]- (pediatric) G47.14 Hypersomnia due to medical condition Office Visit 11/25/2015 9:00a [facility] Seth Valentine G47.33 Obstructive sleep Danyel Astorga apnea (adult) (pediatric) I42.9 Cardiomyopathy, unspecified R06.00 Dyspnea, unspecified I95.2 Hypotension due to drugs I25.10 Athscl heart disease of [place] coronary artery w/o ang pctrs Office Visit 08/29/2015 Pulmonology And Rosa Maria G47.33 Obstructive sleep 9:15a [facility] Paulino RN, apnea (adult) [facility] (pediatric) G47.61 Periodic limb movement disorder Office Visit 07/01/2015 1:40p [facility] Seth Valentine G47.33 Obstructive sleep Danyel Astorga apnea (adult) (pediatric) I42.9 Cardiomyopathy, unspecified 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 [employer] (pediatric) G47.61 Periodic limb movement disorder Office Visit 11/27/2014 8:15a Pulmonology And Debra 327.23 Obstructive Sleep [facility] [place] Linda Apnea Adult & [facility] Pediatric Office Visit 08/20/2014 8:30a [place] [facility] Marbella Peterson 338.4 Chronic Pain Services Of [facility] Chata Zhang M.D. 338.4 Chronic Pain Syndrome 327.51 Periodic Limb Movement Disorder 327.51 Periodic Limb Movement Disorder 311 Depressive Disorder Not Elsewhere Spec Office Visit 08/19/2014 8:40a [place] [facility] Seth Valentine 327.23 Obstructive Sleep Danyel Astorga Apnea Adult & Pediatric 425.9 Cardiomyopathy Secondary Unspecified 414.01 Coronary Atherosclerosis [place] Office Visit 05/30/2014 Pulmonology And Debra 327.23 Obstructive Sleep 8:45a [facility] [place] Apnea Adult & [facility] Pediatric Office Visit 03/14/2014 Pulmonology And Ethan SK. 327.23 Obstructive Sleep 3:45p [facility]el Weaver Apnea Adult & [facility] Pediatric Office Visit 01/02/2014 [place] [facility] Seth Valentine 425.9 Cardiomyopathy 9:30a Danyel Astorga Secondary Unspecified 414.01 Coronary Atherosclerosis [place] 786.09 Dyspnea & Respiratory Abnormalities Other Office Visit 11/26/2013 8:40a [place] [facility] Seth Valentine 338.4 Chronic Pain Danyel Astorga Syndrome 729.1 Myalgia & Myositis Unspec 425.9 Cardiomyopathy Secondary Unspecified 414.01 Coronary Atherosclerosis [place] 794.31 Electrocardiogram (ECG) (EKG) Abnormal Office Visit 11/16/2013 10:00a [place] Margie Peterson 338.4 Chronic Pain Services Of Lance Zhang M.D. 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 Syndrome 338.4 Chronic Pain Syndrome 729.1 Myalgia & Myositis Unspec 338.4 Chronic Pain Syndrome 311 Depressive Disorder Not Elsewhere Spec 729.1 Myalgia & Myositis Unspec 780.93 Memory Loss 729.1 Myalgia & Myositis Unspec 311 Depressive Disorder Not Elsewhere Spec 311 Depressive Disorder Not Elsewhere Spec 780.93 Memory Loss 780.93 Memory Loss Office Visit 07/09/2013 [place] Nurse Visit cc 401.1 Hypertension Benign 8:15a Cardiology Office Visit 04/19/2013 Shahid Valentine 414.01 Coronary 9:40a Cardiology Danyel Astorga Atherosclerosis [place] 272.0 Hypercholesterolemia Pure 401.1 Hypertension Benign 425.9 Cardiomyopathy Secondary Unspecified Office Visit 03/22/2013 2:00p Shahid Peterson 840.8 Sprains & Services Of Lance Zhang M.D. Strains Shoulder & Upper Arm Other Spec Sites 338.4 Chronic Pain Syndrome Office Visit 11/24/2012 10:00a Shahid Peterson 338.4 Chronic Pain Services Of Lance Zhang M.D. Syndrome 338.4 Chronic Pain Syndrome 729.1 Myalgia & Myositis Unspec 729.1 Myalgia & Myositis Unspec 311 Depressive Disorder Not Elsewhere Spec 311 Depressive Disorder Not Elsewhere Spec Office Visit 04/28/2012 10:45a Orthopedic Mary 813.42 FX Radius Services Of Danyel Betnon (Alone) C.M.A. Distal End Other Closed 733.81 Malunion Of Fracture 733.82 Nonunion Of Fracture 719.43 Pain Joint Forearm Office Visit 02/25/2012 9:00a Orthopedic Mary 813.42 FX Radius Services Of Danyel Benton (Alone) C.M.A. Distal End Other Closed 719.44 Pain Joint Hand 727.63 Ruptured Tendons Extensor Hand & Wrist Office Visit 02/23/2012 Shahid Valentine 414.01 Coronary 2:00p Cardiology Danyel Astorga Atherosclerosis [place] 272.0 Hypercholesterolemia Pure 401.1 Hypertension Benign 786.09 Dyspnea & Respiratory Abnormalities Other Office Visit 02/07/2012 Shahid Valentine 425.9 Cardiomyopathy 8:30a Cardiology Danyel Astorga Secondary Unspecified 414.01 Coronary Atherosclerosis [place] 786.09 Dyspnea & Respiratory Abnormalities Other 794.31 Electrocardiogram (ECG) (EKG) Abnormal Office Visit 01/06/2012 Sahhid Valentine 425.9 Cardiomyopathy 10:20a Cardiology Danyel Astorga Secondary Unspecified 414.01 Coronary Atherosclerosis [place] 272.0 Hypercholesterolemia Pure 786.09 Dyspnea & Respiratory Abnormalities Other Office Visit 12/21/2011 Shahid Marbella Peterson 338.4 Chronic Pain 11:00a Neurologic Danyel Zhang Syndrome Services Of [facility] Office Visit 07/14/2011 [place] Nissa 425.9 Cardiomyopathy 3:00p Cardiology Parmenter, Secondary N.P. Unspecified Office Visit 06/25/2011 Shahid Valentine 414.01 Coronary 9:50a Cardiology Danyel Astorga Atherosclerosis [place] 425.9 Cardiomyopathy Secondary Unspecified 272.0 Hypercholesterolemia Pure Office Visit 12/25/2010 Shahid Valentine 425.9 Cardiomyopathy 11:00a Cardiology Danyel Astorga Secondary Unspecified 414.01 Coronary Atherosclerosis [place] 272.0 Hypercholesterolemia Pure Office Visit 08/21/2010 9:30a [place] [facility] Seth Valentine 401.1 Hypertension Danyel Astorga Benign 786.05 Shortness Of Breath 414.01 Coronary Atherosclerosis [place] 425.9 Cardiomyopathy Secondary Unspecified Office Visit 06/30/2010 8:30a [place] [facility] Nurse Visit 401.1 Hypertension Benign cc 786.05 Shortness Of Breath 414.01 Coronary Atherosclerosis [place] Office Visit 06/17/2010 Shahid Valentine 414.01 Coronary 10:00a Cardiology Danyel Astorga Atherosclerosis [place] 425.9 Cardiomyopathy Secondary Unspecified 401.1 Hypertension Benign 272.0 Hypercholesterolemia Pure Office Visit 05/04/2010 Shahid Valentine 414.01 Coronary 10:30a Cardiology Danyel Astorga Atherosclerosis [place] 425.9 Cardiomyopathy Secondary Unspecified 401.1 Hypertension Benign 272.0 Hypercholesterolemia Pure 786.05 Shortness Of Breath Office Visit 08/13/2009 [place] Seth Valentine 414.01 Coronary 3:40p Cardiology Danyel Astorga Atherosclerosis [place] 786.50 Pain Chest Unspec 401.1 Hypertension Benign Office Visit 06/18/2009 [place] Valentine 425.9 Cardiomyopathy 8:30a Cardiology Danyel Astorga Secondary Unspecified 414.01 Coronary Atherosclerosis [place] 786.50 Pain Chest Unspec Office Visit 06/13/2009 Shahid Valentine 425.9 Cardiomyopathy 9:40a Cardiology Danyel Astorga Secondary Unspecified 414.01 Coronary Atherosclerosis [place] 786.50 Pain Chest Unspec Office Visit 03/18/2009 9:00a [facility] Seth Valentine 401.1 Brooklynn Astorga M.D. Benign 272.0 Hypercholesterolemia Pure 425.9 Cardiomyopathy Secondary Unspecified 414.01 Coronary Atherosclerosis [place] Office Visit 12/20/2008 2:20p [facility] Seth Valentine 401.1 Brooklynn Astorga M.D. Benign 414.01 Coronary Atherosclerosis [place] 425.9 Cardiomyopathy Secondary Unspecified Office Visit 09/06/2008 [place] Nurse Visit cc 10:00a Cardiology Office Visit 08/21/2008 [place] Valentine 414.01 Coronary 1:40p Carline Astorga M.D. Atherosclerosis [place] 272.0 Hypercholesterolemia Pure 425.9 Cardiomyopathy Secondary Unspecified Office Visit 07/08/2008 10:00a [place] Nurse Visit 414.01 Coronary Cardiology cc Atherosclerosis [place] 272.0 Hypercholesterolemia Pure 425.9 Cardiomyopathy Secondary Unspecified Office Visit 04/19/2008 [place] Seth Valentine 414.01 Coronary 9:40a Cardiology Danyel Astorga Atherosclerosis [place] 272.0 Hypercholesterolemia Pure 425.9 Cardiomyopathy Secondary Unspecified Office Visit 12/04/2007 [place] Seth Valentine 794.31 Electrocardiogram 8:10a Cardiology Danyel Astorga (ECG) (EKG) Abnormal 786.05 Shortness Of Breath 414.01 Coronary Atherosclerosis [place] 272.0 Hypercholesterolemia Pure Plan of Treatment Future Appointment(s):09/26/2018 11:40 venkat - Seth Astorga M.D. at [facility]07/12/2018 - Andria Curtis, NRomeroP.I42.9 Cardiomyopathy, unspecifiedFollow up:ok to move out [facility] to Recommendations:Heart function improved 35-40% Continue slhdomreE32.10 Atherosclerotic heart disease of [place] coronary artery withI34.0 Nonrheumatic mitral (valve) [id number] Dyspnea, srhlwumtrniO93.33 Obstructive sleep apnea (adult) ( pediatric)E78.00 Pure hypercholesterolemia, unspecified
--- NOTE | 2018-07-23 11:37 | ED ---
Upper Extremity Pain - HPI Summary HPI Summary: Patient is a 63-year-old female presenting to the ED 4 days after a fall. She states she was walking her dog on Tuesday when she fell onto her right shoulder. She denies hitting her head or LOC. Since that time, she has been able to flex and extend, abduct and adduct at the shoulder joint, however with discomfort. The majority of her pain is noted posteriorly to the levator scapula and sternocleidomastoid to the right side. Patient is able to flex and extend at the neck, as well as rotate of the neck. Denies any numbness or tingling into the ipsilateral arm. Denies any color or temperature changes to the arm or the hand. She denies any weakness or reduced cable coverer strength. - History of Current Complaint Chief Complaint: Lane Stated Complaint: RIGHT SHOULDER/NECK PAIN PER PT Time Seen by Provider: 07/23/18 10:16 Hx Obtained From: Patient Mechanism Of Injury: Blunt Trauma Onset/Duration: Started Hours Ago Timing: Constant Severity Initially: Moderate Severity Currently: Moderate Pain Location: Shoulder Character: Aching Aggravating Factor(s): Lifting, Flexion, Extension, Internal/External Rotation Alleviating Factor(s): Nothing Associated Signs & Symptoms: Positive: Negative Related History: Dominant Hand Right - Risk Factors Non-Orthopedic Risk Factor: Negative DVT Risk Factors: Negative Septic Arthritis Risk Factor: Negative Compartment Syndrome Risk Factors: Pain - Allergies/Home Medications Allergies/Adverse Reactions: Allergies Allergy/AdvReac Type Severity Reaction Status Date / Time pravastatin Allergy Muscle Ache Verified 07/23/18 10:06 PMH/Surg Hx/FS Hx/Imm Hx Previously Healthy: Yes Endocrine/Hematology History: Reports: Hx Anemia Denies: Hx Diabetes, Hx Thyroid Disease Cardiovascular History: Reports: Hx Coronary Artery Disease - STENT RCA, Hx Hypercholesterolemia, Hx Hypertension, Other Cardiovascular Problems/Disorders - STENT PLACEMENT IN 2007 Denies: Hx Angina, Hx Myocardial Infarction, Hx Pacemaker/ICD Respiratory History: Reports: Hx Chronic Obstructive Pulmonary Disease (COPD), Hx Sleep Apnea - NO CPAP, Other Respiratory Problems/Disorders - COPD Denies: Hx Asthma GI History: Reports: Other GI Disorders - ON PANTOPRAZOLE - UNKNOWN REASON Denies: Hx Ulcer Musculoskeletal History: Reports: Hx Arthritis - LEFT HAND, Hx Tendonitis - TENDON REPLACEMENT LEFT THUMB AND INDEX FINGER Denies: Hx Rheumatoid Arthritis, Hx Osteoporosis Sensory History: Reports: Hx Contacts or Glasses - GLASSES Denies: Hx Cataracts, Hx Glaucoma, Hx Hearing Aid Opthamlomology History: Reports: Hx Contacts or Glasses - GLASSES Denies: Hx Cataracts, Hx Glaucoma Psychiatric History: Reports: Hx Depression Denies: Hx Panic Disorder - Cancer History Hx Chemotherapy: No Hx Radiation Therapy: No - Surgical History Surgery Procedure, Year, and Place: PARTIAL [facility]OMY- [facility] [place] TENDON REPLACEMENT THUMB AND INDEX FINGER-[facility] [place] Hx Anesthesia Reactions: No - Immunization History Hx Pertussis Vaccination: No Immunizations Up to Date: Yes Infectious Disease History: No Infectious Disease History: Denies: Hx Clostridium Difficile, Hx Hepatitis, Hx Human Immunodeficiency Virus (HIV), Hx of Known/Suspected MRSA, Hx Shingles, Hx Tuberculosis, Hx Known/ Suspected VRE, Hx Known/Suspected VRSA, History Other Infectious Disease, Traveled Outside the in Last 30 Days - Family History Known Family History: Positive: Hypertension - Social History Occupation: Unemployed Lives: With Family Alcohol Use: Occasionally Hx Substance Use: No Substance Use Type: Reports: None Hx Tobacco Use: Yes Smoking Status (MU): Heavy Every Day Tobacco Smoker Type: Cigarettes Amount Used/How Often: 1.5 PPD Length of Time of Smoking/Using Tobacco: 17 YEARS Have You Smoked in the Last Year: No Review of Systems Constitutional: Negative Negative: Fever, Chills, Fatigue, Skin Diaphoresis Negative: Palpitations, Chest Pain Negative: Shortness Of Breath, Cough Positive: Arthralgia - right shoulder pain, Myalgia Skin: Negative Neurological: Negative All Other Systems Reviewed And Are Negative: Yes Physical Exam Triage Information Reviewed: Yes Vital Signs On Initial Exam: Initial Vitals Temp Pulse Resp BP Pulse Ox 98.7 F 76 16 145/82 99 07/23/18 10:02 07/23/18 10:02 07/23/18 10:02 07/23/18 10:02 07/23/18 10:02 Vital Signs Reviewed: Yes Appearance: Positive: Well-Appearing, Well-Nourished Skin: Positive: Warm, Skin Color Reflects Adequate Perfusion Head/Face: Positive: Normal Head/Face Inspection Eyes: Positive: EOMI, Conjunctiva Clear Neck: Positive: No Lymphadenopathy Respiratory/Lung Sounds: Positive: Clear to Auscultation, Breath Sounds Present , Decreased Breath Sounds Cardiovascular: Positive: Pulses are Symmetrical in both Upper and Lower Extremities. Negative: Leg Edema Left, Leg Edema Right Musculoskeletal: Positive: Pain @ - right shoulder pain to the levator scapula inserted cleidomastoid to the right side, no pain directly over the posterior cervical spine Neurological: Positive: Sensory/Motor Intact, Alert, Oriented to Person Place, Time, Facial Symmetry Diagnostics - Vital Signs Vital Signs Temp Pulse Resp BP Pulse Ox 07/23/18 10:02 98.7 F 76 16 145/82 99 - Laboratory Lab Statement: Any lab studies that have been ordered have been reviewed, and results considered in the medical decision making process. Course/Dx - Course Course Of Treatment: Patient is evaluated for right shoulder pain. She situated directly over to the right shoulder and is endorsing pain to that area at this time. On physical examination, there is most notably pain to the sternal cleidomastoid, levator scapula and upper trapezius. No pain to the posterior or anterior deltoids or to the latissimus. She is able to abduct and adduct about the arm with minimal discomfort. She is able to rotate about the neck with minimal discomfort. Pain is directly to palpation over these areas. X-rays obtained of the shoulder and the clavicle and are both read as negative. She will be discharged home with tramadol and Flexeril, not to be taken simultaneously as well as encouraged ibuprofen, Tylenol and heat. She will follow-up with orthopedics for further evaluation of this complaint. - Diagnoses Differential Diagnosis/HQI/PQRI: Positive: Strain, Sprain Provider Diagnoses: Neck strain Discharge - Sign-Out/Discharge Documenting (check all that apply): Patient Departure Patient Received Moderate/Deep Sedation with Procedure: No - Discharge Plan Condition: Stable Disposition: HOME Prescriptions: Cyclobenzaprine TAB* [Flexeril TAB*] 10 mg PO BID PRN #10 tab MDD 2 PRN Reason: Pain traMADol TAB* [Ultram*] 50 mg PO Q8H PRN #12 tab MDD 3 PRN Reason: Pain Patient Education Materials: Muscle Strain (ED) Referrals: Ailin Douglas MD [Primary Care Provider] - Tanja Hernandez MD [Medical Doctor] - Additional Instructions: Moist heat to the area Please follow-up with orthopedics for further evaluation Your x-rays today's visit were both negative for any fractures Tramadol 3 times daily as needed for discomfort Flexeril twice daily for muscle spasms Do not take the simultaneously You may continue to take Tylenol and ibuprofen for relief - Billing Disposition and Condition Condition: STABLE Disposition: Home
[2018-07-23 11:53] VITALS: BP 121/82
== END 2018-07-23 11:53 | disposition home or self-care (01) ==
LOC: ED 10:01
DX: S16.1XXA Strain of muscle, fascia and tendon at neck level, initial encounter (principal); W18.30XA Fall on same level, unspecified, initial encounter; Y93.K1 Activity, walking an animal; Y92.9 Unspecified place or not applicable; Y99.8 Other external cause status; D64.9 Anemia, unspecified; I25.10 Atherosclerotic heart disease of native coronary artery without angina pectoris; F17.210 Nicotine dependence, cigarettes, uncomplicated
CPT/HCPCS: 99282

== ENCOUNTER 2018-12-22 08:01 | Emergency (ER) | payer MEDICARE, OTHER ==
[2018-12-22 08:10] VITALS: BP 147/72
--- NOTE | 2018-12-22 08:32 | UC ---
Respiratory Complaint HPI - HPI Summary HPI Summary: 63 yo female with hx of COPD and cardiomyopathy presents with a three day hx of runny nose/cougn and wheezing Now chest hurts with deep breath or cough no fever/chills has been using her rescue inhaler without improvement - History of Current Complaint Chief Complaint: UCRespiratory Stated Complaint: COUGH Time Seen by Provider: 12/22/18 08:21 Hx Obtained From: Patient Onset/Duration: Gradual Onset, Lasting Days Timing: Constant Severity Currently: Severe Pain Intensity: 8 Pain Scale Used: 0-10 Numeric Character: Cough: Productive Aggravating Factors: Nothing Alleviating Factors: Nothing Associated Signs And Symptoms: Positive: Dyspnea, Wheezing, Nasal Congestion Related History: Similar Episode/Dx as: - Bronchitis - Allergies/Home Medications Allergies/Adverse Reactions: Allergies Allergy/AdvReac Type Severity Reaction Status Date / Time pravastatin Allergy Muscle Ache Verified 12/22/18 08:10 Home Medications: Home Medications Albuterol HFA INHALER* [Ventolin HFA Inhaler*] 1 - 2 puff INH Q4H PRN 12/22/18 [ History Confirmed 12/22/18] Ibuprofen TAB* [Motrin TAB* 600 MG] 600 mg PO Q6H PRN 12/22/18 [History Confirmed 12/22/18] PMH/Surg Hx/FS Hx/Imm Hx Previously Healthy: Yes Endocrine History: Dyslipidemia Cardiovascular History: Cardiac Disease, Hypertension, Other Other Cardiovascular History: cardiomyopathy Respiratory History: COPD, Bronchitis - Surgical History Surgical History: Yes Surgery Procedure, Year, and Place: [facility]- [facility] [place] TENDON REPLACEMENT THUMB AND INDEX FINGER[facility] - Family History Known Family History: Positive: Hypertension, Diabetes - Social History Alcohol Use: Occasionally Substance Use Type: None Smoking Status (MU): Light Every Day Tobacco Smoker Type: Cigarettes Amount Used/How Often: 1/2 PPD Length of Time of Smoking/Using Tobacco: 17 YEARS Have You Smoked in the Last Year: No When Did the Patient Quit Smoking/Using Tobacco: 1996 Household Exposure Type: Cigarettes Review of Systems All Other Systems Reviewed And Are Negative: Yes Constitutional: Positive: Fatigue Skin: Positive: Negative Eyes: Positive: Negative ENT: Positive: Nasal Discharge, Sinus Congestion, Sinus Pain/Tenderness Respiratory: Positive: Shortness Of Breath, Cough Cardiovascular: Positive: Chest Pain - with cough Gastrointestinal: Positive: Negative Genitourinary: Positive: Negative Motor: Positive: Negative Neurovascular: Positive: Negative Musculoskeletal: Positive: Negative Neurological: Positive: Negative Psychological: Positive: Negative Physical Exam Triage Information Reviewed: Yes Appearance: Well-Appearing, No Pain Distress, Well-Nourished Vital Signs: Initial Vital Signs Temp 98.8 F 12/22/18 08:05 Pulse 88 12/22/18 08:05 Resp 16 12/22/18 08:05 BP 147/72 12/22/18 08:05 Pulse Ox 93 12/22/18 08:05 Vital Signs Reviewed: Yes Eyes: Positive: Conjunctiva Clear ENT: Positive: Nasal congestion, Nasal drainage, Uvula midline. Negative: Hearing grossly normal, Trismus, Muffled voice, Hoarse voice, Sinus tenderness Neck: Positive: Supple Respiratory: Positive: Wheezing Cardiovascular: Positive: RRR Musculoskeletal: Positive: ROM Intact, No Edema Neurological: Positive: Alert Psychological Exam: Normal Skin Exam: Normal Diagnostics - Radiology No standard instances Radiology Interpretation Completed By: Radiologist Summary of Radiographic Findings: CXR: stigmata of COPD Re-Evaluation - Re-Evaluation First Eval Re-Evaluation Time: 10:02 Change: Improved - after second neb; markedly improved, no CP with deep breath, Pox 96 on RA, no wheezing Respiratory Course/Dx - Differential Dx/Diagnosis Provider Diagnosis: Acute exacerbation of chronic obstructive pulmonary disease (COPD) Discharge ED - Sign-Out/Discharge Documenting (check all that apply): Patient Departure All imaging exams completed and their final reports reviewed: Yes - Discharge Plan Condition: Stable Disposition: HOME Prescriptions: Amoxicillin PO (*) [Amoxicillin 875 MG (*)] 875 mg PO BID #14 tab predniSONE [Deltasone 20 MG TAB] 20 mg PO DAILY #4 tab Patient Education Materials: Acute Bronchitis (ED) Referrals: Ailin Douglas MD [Primary Care Provider] - 3 Days (recheck sherif next week) Additional Instructions: use your albuterol inhaler 2 puffs 4x day for the next 3-4 days you had todays dose of prednisone to ER for new or worsening symptoms - Billing Disposition and Condition Condition: STABLE Disposition: Home
[2018-12-22] MEDS ORDERED: Ipratropium 0.5MG/2.5ML NEB* 0.5 MG/2.5 ML NEB.SOLN INH ONE (08:34)
[2018-12-22] MEDS ORDERED: Albuterol 2.5 MG/3 ML NEB.SOL* (0.083%) INH ONE ×2 (08:34→09:22)
[2018-12-22] MEDS ORDERED: predniSONE TAB* 20 MG PO ONE (09:21)
[2018-12-22] MEDS ORDERED: predniSONE TAB* 10 MG PO ONE (09:38)
== END 2018-12-22 10:09 | disposition home or self-care (01) ==
LOC: UCEAST 08:01
DX: J44.1 Chronic obstructive pulmonary disease with (acute) exacerbation (principal); I10 Essential (primary) hypertension; E78.5 Hyperlipidemia, unspecified; F17.210 Nicotine dependence, cigarettes, uncomplicated
CPT/HCPCS: 71046; 99213; G0463; J7512

== ENCOUNTER 2018-12-31 10:32 | Inpatient (IN) | payer MEDICARE, OTHER ==
[2018-12-31] MEDS ORDERED: Albuterol/Ipratropium NEB.SOL* Albuterol 2.5 MG/Ipratropium 0.5 MG 3 ML INH ONE ×2 (11:14→13:04)
--- NOTE | 2018-12-31 11:14 | ED ---
Shortness of Breath - HPI Summary HPI Summary: This pt is a 63 Y/O F presenting to [facility] accompanied by her family with a CC of a persistent cough with SOB for the last 2 weeks which has been worsening since the onset. She states that she has seen her PCP 2times last week for the symptoms and was prescribed ABX (, prednisone 20 mg, and nebulizers with no effect. She states that since 12/25/18 she has been extremely fatigued and has had no energy. She states that she has had hypoxia at 80 % O2 saturation and the cough has been productive. She states that she has CP and a sore throat that is present due to the cough. She states that she has had episodes of diarrhea. She denies any fevers, chills, N/V, and diaphoresis. She states no aggravating or alleviating factors. She has a PMHx of COPD without oxygen assistance and CAD. She has an exterior pacemaker. - History of Current Complaint Chief Complaint: EDShortnessOfBreath Time Seen by Provider: 12/31/18 11:03 Hx Obtained From: Patient, Family/Transition Coach - daughter Onset/Duration: Sudden Onset, Lasting Weeks - 2, Still Present, Worse Since - onset Timing: Constant Current Severity: Mild Dyspnea At: Rest Aggravating Factors: Nothing Alleviating Factors: Nothing Associated Signs & Symptoms: Negative - fevers, chills, N/V, and diaphoresis, Cough (Productive), Chest Pain w/Cough - Allergy/Home Medications Allergies/Adverse Reactions: Allergies Allergy/AdvReac Type Severity Reaction Status Date / Time pravastatin Allergy Muscle Ache Verified 12/31/18 11:42 PMH/Surg Hx/FS Hx/Imm Hx Previously Healthy: Yes Endocrine/Hematology History: Reports: Hx Anemia Denies: Hx Diabetes, Hx Thyroid Disease Cardiovascular History: Reports: Hx Coronary Artery Disease - STENT RCA, Hx Hypercholesterolemia, Hx Hypertension, Other Cardiovascular Problems/Disorders - STENT PLACEMENT IN 2007 Denies: Hx Angina, Hx Myocardial Infarction, Hx Pacemaker/ICD Respiratory History: Reports: Hx Chronic Obstructive Pulmonary Disease (COPD), Hx Sleep Apnea - NO CPAP, Other Respiratory Problems/Disorders - COPD Denies: Hx Asthma GI History: Reports: Other GI Disorders - ON PANTOPRAZOLE - UNKNOWN REASON Denies: Hx Ulcer Musculoskeletal History: Reports: Hx Arthritis - LEFT HAND, Hx Tendonitis - TENDON REPLACEMENT LEFT THUMB AND INDEX FINGER Denies: Hx Rheumatoid Arthritis, Hx Osteoporosis Sensory History: Reports: Hx Contacts or Glasses - GLASSES Denies: Hx Cataracts, Hx Glaucoma, Hx Hearing Aid Opthamlomology History: Reports: Hx Contacts or Glasses - GLASSES Denies: Hx Cataracts, Hx Glaucoma Psychiatric History: Reports: Hx Depression Denies: Hx Panic Disorder - Cancer History Hx Chemotherapy: No Hx Radiation Therapy: No - Surgical History Surgery Procedure, Year, and Place: PARTIAL [place] [facility] [place] PLAC[place]- [place]. 03/2011 LEFT HAND TENDON REPLACEMENT THUMB AND INDEX [place]ING[place] [place] Anesthesia Reactions: No Infectious Disease History: No Infectious Disease History: Denies: Hx Clostridium Difficile, Hx Hepatitis, Hx Human Immunodeficiency Virus (HIV), Hx of Known/Suspected MRSA, Hx Shingles, Hx Tuberculosis, Hx Known/ Suspected VRE, Hx Known/Suspected VRSA, History Other Infectious Disease, Traveled Outside the in Last 30 Days - Family History Known Family History: Positive: Hypertension, Diabetes - Social History Occupation: Retired Lives: With Family Alcohol Use: Occasionally Hx Substance Use: No Substance Use Type: Reports: None Hx Tobacco Use: Yes Smoking Status (MU): Light Every Day Tobacco Smoker Type: Cigarettes Amount Used/How Often: 1/2 PPD Length of Time of Smoking/Using Tobacco: 17 YEARS Have You Smoked in the Last Year: No Review of Systems Negative: Fever, Chills, Skin Diaphoresis Positive: Sore Throat - due to cough Positive: Chest Pain - due to cough Positive: Shortness Of Breath, Cough - productive Positive: Diarrhea. Negative: Vomiting, Nausea All Other Systems Reviewed And Are Negative: Yes Physical Exam - Summary Physical Exam Summary: General: Thin elderly female who is mildly ill appearing HEENT: Normocephalic, Atraumatic. Eyes: Conjuctiva normal, PERRL. Ears: TMs within normal limits. Nares: (-) discharge, (-) erythema. Oropharynx: Clear, mucous membranes moist, (-) exudates. Neck: Soft, FROM, (-) lymphadenopathy, (-) thyromegaly, (-) JVD. Cardiovascular: Normal sinus rhythm, (-) murmur. Lungs: equal breath sounds bilaterally, decreased air exchange, tight wheezing throughout. (-) rales, (-) rhonchi. Abdomen: Soft, non-tender, non-distended, (-) organomegaly, normal bowel sounds. Back: (-) CVA tenderness Extremities: No edema. Skin: Warm, dry, (-) rash. Neuro: Alert and oriented x3, no focal deficits. Psychiatric: Mood normal, affect normal. Triage Information Reviewed: Yes Vital Signs On Initial Exam: Initial Vitals Temp Pulse Resp BP Pulse Ox 98.3 F 86 20 119/82 88 12/31/18 10:32 12/31/18 10:32 12/31/18 10:32 12/31/18 10:32 12/31/18 10:32 Vital Signs Reviewed: Yes Diagnostics - Vital Signs Vital Signs Temp Pulse Resp BP Pulse Ox 12/31/18 10:32 98.3 F 86 20 119/82 88 - Laboratory Result Diagrams: 12/31/18 11:20 12/31/18 11:20 Lab Statement: Any lab studies that have been ordered have been reviewed, and results considered in the medical decision making process. - Radiology CXR Radiology Interpretation Completed By: Radiologist Summary of Radiographic Findings: Hyperinflated lungs with no focal airspace opacification. ED physician has reviewed this report. - EKG 1107 Cardiac Rate: NL - 86 BPM EKG Rhythm: Sinus Rhythm ST Segment: Normal Ectopy: None Summary of EKG Findings: EKG at 1107 reveals normal sinus rhythm with rate of 86 BPM, no acute changes, no ischemic changes. She has an old inferior infarct. This EKG was reviewed and interpreted by Dr. Suero at 1108 12/31/2018. Re-Evaluation - Re-Evaluation First Eval Re-Evaluation Time: 13:07 Change: Unchanged Comment: Pt was informed of her labratory results and the decision to admit her. She is agreeable and the hospitalist will be informed. Course/Dx - Course Course Of Treatment: This pt is a 63 Y/O F presenting to [facility] accompanied by her family with a CC of a persistent cough with SOB for the last 2 weeks. She states that she has seen her PCP 2times last week for the symptoms and was prescribed ABX, prednisone 20 mg, and nebulizers with no effect. She has a pertinent PMHx of COPD and CAD. She states that she uses an O2 reader at home which found that she had an 88% O2 saturation. Her PE found that she has equal breath sounds bilaterally, decreased air exchange, and tight wheezing throughout. EKG at 1107 reveals normal sinus rhythm with rate of 86 BPM, no acute changes, no ischemic changes. She has an old inferior infarct. Her CXR shows the following: Hyperinflated lungs with no focal airspace opacification. She has abnormal laboratory values in WBC, MCH, Absolute Neuts, Absolute Monos, Sodium, Glucose, Alkaline Phosphatase, and C- Reactive Protein of 172.37 H. Her ABG tests show that she has abnormalities in her pH, pCO2, pO2, and ABG Base Excess. Anothoer duoneb was ordered at 1306 due to the pt's SOB. She was informed of the decision to admit the pt due to her Dx of COPD exacerbation and hypoxia for further assesment and investigation. She will be given steroids and ABX before admittance. - Diagnoses Provider Diagnoses: COPD exacerbation, Hypoxia - Physician Notifications Discussed Care of Patient With: Blair Johansen Time Discussed With Above Provider: 13:08 Instructed by Provider To: Admit As Inpatient Admit/Transition Orders Completed By ED Provider: Yes Discharge ED - Sign-Out/Discharge Documenting (check all that apply): Patient Departure - discharge Patient Received Moderate/Deep Sedation with Procedure: No - Discharge Plan Condition: Stable Disposition: ADMITTED TO [facility] Referrals: Ailin Douglas MD [Primary Care Provider] - - Billing Disposition and Condition Condition: STABLE Disposition: Admitted to [facility] - Attestation Statements Document Initiated by Reid: Yes Documenting Scribe: Obi Medina Provider For Whom Александрibe is Documenting (Include Credential): Karla Suero MD Scribe Attestation: Obi Zaidi, scribed for Karla Suero MD on 12/31/18 at 1330. Scribe Documentation Reviewed: Yes Provider Attestation: The documentation as recorded by the Obi singh accurately reflects the service I personally performed and the decisions made by , Karla Suero MD Status of Scribe Document: Viewed
[2018-12-31 11:47] LABS: ABS Basophils 0.1 10^3/ul (0-0.2); ABS Eosinophils 0.2 10^3/ul (0-0.6); ABS Lymphocytes 1.3 10^3/ul (1.0-4.8); ABS Monocytes 1.1 10^3/ul (0-0.8); Eosinophil % 0.9 %; Hematocrit 37 % (35-47); Hemoglobin 12.5 g/dL (12.0-16.0); Lymphocyte % 7.5 %; Mean Corpuscular HGB Conc 34 g/dL (31-36); Mean Corpuscular Hemoglobin 33 pg (27-31); Mean Corpuscular Volume 97 fL (80-97); Mean Platelet Volume 7.9 fL (7.4-10.4); Nucleated Red Blood Cells % 0.1; Platelet Count 447 10^3/uL (150-450); Red Blood Count 3.85 10^6 /uL (3.70-4.87); Red Cell Distribution Width 13 % (10-15); White Blood Count 17.6 10^3/uL (3.5-10.8)
[2018-12-31 12:03] LABS: Albumin 3.6 g/dL (3.2-5.2); Albumin/Globulin Ratio 1.1 (1-3); BUN/Creatinine Ratio 15.2 (8-20); C Reactive Protein 172.37 mg/L (<8.01); Calcium 9.2 mg/dL (8.6-10.3); EGFR African American 88.9 (>60); EGFR Non-African American 73.5 (>60); Globulin 3.4 g/dL (2-4); Potassium 3.9 mmol/L (3.5-5.0); Total Bilirubin 0.5 mg/dL (0.2-1.0)
[2018-12-31 12:04] LABS: Troponin I 0.03 ng/mL (<0.04)
[2018-12-31] MEDS ORDERED: methylPREDNISolone 125 MG* 2 ML VIAL IV ONE (13:08)
[2018-12-31] MEDS ORDERED: cefTRIAXone(*) 2 GM in NS 0.9% 100 ML* 100 ML IVPB ONE (13:09)
[2018-12-31] MEDS ORDERED: Azithromycin 500 mg/250 ml NS 500 MG/250 ML BAG IVPB ONE (13:11)
[2018-12-31] MEDS ORDERED: Albuterol/Ipratropium NEB.SOL* Albuterol 2.5 MG/Ipratropium 0.5 MG 3 ML INH PRN (14:37)
[2018-12-31] MEDS ORDERED: methylPREDNISolone SOD 40 MG* 1 ML VIAL IV SCH (15:00)
[2018-12-31 15:22] LABS: Urine Appearance Clear; Urine Bacteria Absent (Absent); Urine Bilirubin Negative (Negative); Urine Blood 1+ (Negative); Urine Color Straw; Urine Glucose Negative (Negative); Urine Ketones Negative (Negative); Urine Nitrite Negative (Negative); Urine Protein Negative (Negative); Urine Red Blood Cell Trace(0-2/hpf) (Absent); Urine Specific Gravity 1.006 (1.010-1.030); Urine Urobilinogen Negative (Negative); Urine White Blood Cell Trace(0-5/hpf) (Absent)
[2018-12-31] MEDS: Enoxaparin(*) 40 MG/0.4 ML SYR SUBCUT SCH (16:19)
--- NOTE | 2018-12-31 17:32 | HP ---
CC: Dr. Ailin Douglas; Dr. Astorga * HISTORY AND PHYSICAL: DATE OF ADMISSION: 12/31/18 PROVIDER: Jimmy Gavin NP PRIMARY CARE PROVIDER: Dr. Ailin Douglas. ATTENDING PHYSICIAN WHILE IN THE HOSPITAL: Dr. Blair Johansen * (dictated by Jimmy Gavin NP). CHIEF COMPLAINT: Shortness of breath. HISTORY OF PRESENT ILLNESS: Ms. Fritz is a 63-year-old female with a past medical history significant for coronary artery disease, COPD, cardiomyopathy with an EF of 35-40% according to ECHO from 06/27/18, GERD, and sleep apnea, who presented to the emergency room with complaints of progressively worsening shortness of breath times the past 10 days. The patient reports that she was seen by her primary care provider on 12/25/18. At that time, she was placed on antibiotic and prednisone. She completed a 7-day course of amoxicillin on Tuesday, but continues to report progressively worsening shortness of breath. The patient does report exposure as family members have had upper respiratory tract infection as well. She also reports that she has been wearing her CPAP machine continuously due to the shortness of breath. She does report worsening shortness of breath with exertion and does report some upper chest pain with cough and deep breath. Due to her progressively worsening shortness of breath and increased fatigue, decreased appetite, she presented to the emergency room for further evaluation. While in the emergency room, the patient had routine lab work drawn. She was found to have leukocytosis with a white count of 17.6. She was tachycardic and tachypneic for which she met SIRS criteria. She did receive azithromycin and ceftriaxone in the emergency room. She had blood cultures that are currently pending and urine as well. Due to progressively worsening shortness of breath, Hospital Medicine was asked to see and evaluate for admission. PAST MEDICAL HISTORY: Significant for coronary artery disease, COPD, cardiomyopathy with known EF of 35-40%, GERD, stent placement in 2007, and sleep apnea, wears CPAP at home. PAST SURGICAL HISTORY: Cardiac catheterization with stent placement, sinus surgery, and hysterectomy. HOME MEDICATIONS: Include: 1. Aldactone 25 mg p.o. daily. 2. Entresto 49/51 mg 1 tablet twice daily. 3. Requip 0.25 mg 2 tablets twice daily. 4. Coreg 10 mg 1 tablet in the morning, 2 tablets in the evening. 5. Fluoxetine 20 mg 1 tablet p.o. daily. 6. Ventolin HFA inhaler 108 mcg 2 puffs 4 times a day as needed for shortness of breath. 7. Crestor 20 mg p.o. daily. 8. Aspirin 81 mg p.o. daily. 9. Multivitamin 1 tab p.o. daily. 10. Pantoprazole 20 mg p.o. daily. 11. Symbicort 160/4.5 two inhales b.i.d. p.r.n. 12. CPAP machine. 13. Duloxetine 60 mg 1 tablet p.o. daily. 14. Gabapentin 400 mg 1 capsule in the morning and 2 capsules in the evening. ALLERGIES: She has an allergy to PRAVACHOL. FAMILY HISTORY: Mother with a history of congestive heart failure. No reported history of diabetes. Father with bladder cancer. SOCIAL HISTORY: The patient smokes half a pack a day. She does report occasional alcohol use. No illicit drug use. She lives alone. Her daughter lives next door. Surrogate decision maker in the event she is unable to make her own decisions is her daughter. She is a full code. REVIEW OF SYSTEMS: The patient denies any fever, unintended weight loss. She does report decreased appetite. She does complain of upper chest pain associated with cough and deep breath. No edema. She does report a cough. She denies any hemoptysis. She does report progressively worsening shortness of breath, worse with exertion. Denies any nausea, vomiting. She does report 1 episode of small amount of diarrhea. Denies any abdominal pain, hematuria, dysuria. Denies any focal weakness, sensory loss, visual complaints, dysphagia , arthralgias, myalgias. Denies any rashes, lesions, open sores, psychosis, or anxiety. PHYSICAL EXAMINATION GENERAL: At this time, Ms. Fritz is alert and oriented. She is resting on the stretcher in the emergency room. She does appear to be fatigued. VITAL SIGNS: Blood pressure 104/72, heart rate 93, respirations are 26, O2 saturation 94%, temperature of 98.3. HEENT: Head is atraumatic, normocephalic. Eyes: EOMs are intact. Sclerae anicteric and not pale. Oral mucosa appeared to be moist. NECK: Supple. LUNGS: Diminished throughout bilaterally with expiratory wheezes. She does have a moist congested cough. CARDIAC: S1, S2. Regular rate and rhythm. No rubs or gallops. ABDOMEN: Soft and nontender. Bowel sounds are present x4. EXTREMITIES: She is able to move all 4 extremities. No clubbing or cyanosis. Pedal pulses are +2 bilaterally. NEUROLOGIC: She is awake, alert, and oriented x3. Speech is clear. Thought process is intact. There is no gross focal deficits. SKIN: Intact. DIAGNOSTIC STUDIES/LAB DATA: WBCs are 17.6, RBCs 3.85, hemoglobin 12.5, hematocrit is 37, platelet count is 447. ABG; pH was 7.50, pCO2 was 33, pO2 was 67, HCO3 was 27.1, O2 saturation was 96%. Sodium 128, potassium 3.9, chloride 91, carbon dioxide was 20, anion gap was 9, BUN was 12, creatinine 0.79 , glucose was 112. Lactic acid 1.4, calcium 9.2. ASTs were 47, ALTs were 29, alkaline phosphatase was 115. C-reactive protein was 172. BNP 100. She had a chest x-ray, radiologist's impression: Hyperinflated lungs with no focal airspace opacification. She had an electrocardiogram which showed sinus rhythm at a rate of 86. ASSESSMENT AND PLAN: Ms. Fritz is a 63-year-old female with a past medical history significant for coronary artery disease, chronic obstructive pulmonary disease, cardiomyopathy, gastroesophageal reflux disease, and sleep apnea, who presented to the emergency room with complaints of progressively worsening shortness of breath, who will be admitted for: 1. Chronic obstructive pulmonary disease exacerbation. I suspect her shortness of breath is related to chronic obstructive pulmonary disease exacerbation. The patient does have a moist increased cough and progressively worsening shortness of breath requiring her to wear CPAP at home continuously due to her shortness of breath. She did receive azithromycin and ceftriaxone in the emergency room. We will continue azithromycin and ceftriaxone. She did also receive Solu-Medrol 125 mg IV. I will continue her on Solu-Medrol 40 mg IV q.12 hours. I will send the sputum for culture. I will send urine for Legionella and Strep pneumoniae. She will continue on nebulizers. I have encouraged the patient to stop smoking. 2. Leukocytosis. The patient does have leukocytosis. I suspect this could be related to steroid use but also could be related to underlying infection. She was placed on azithromycin and ceftriaxone. 3. Sepsis. The patient does meet sepsis criteria with leukocytosis, tachypnea , and tachycardia with suspected source of pneumonia. The patient does have an elevated CRP of 172. She does have a recent respiratory tract infection for which she received amoxicillin, which she completed 7-day course yesterday. I will hold off on fluid bolusing at this time as her lactic acid level is within normal limits and does have a history of cardiomyopathy with with EF 35-40%. 4. Cardiomyopathy. The patient should continue on Entresto and Aldactone as previously prescribed as well as Coreg. 5. Gastroesophageal reflux disease. She should continue on pantoprazole as previously prescribed. 6. Hyperlipidemia. She should continue on Crestor as previously prescribed. 7. FEN. She can have a heart-healthy, caffeine-okay diet. 8. Code status. She is a full code. 9. DVT prophylaxis. I will place her on Lovenox subcu. TIME SPENT: Time spent on this admission was 60 minutes, greater than half that time was spent at the bedside reviewing events leading thus far to her hospitalization, performing physical exam, and reviewing my plan of care. I have discussed this with my attending, Dr. Blair Johansen. He is in agreement with my plan. JIMMY GAVIN NP [id number]/CPS #: [id number] MTDD
[2018-12-31] MEDS ORDERED: NS 0.9% 500 ML* 500 ML IV ONE (18:13)
[2018-12-31] MEDS: Mometasone/Formoter 200/5 MDI INH SCH (20:13)
[2018-12-31] MEDS ORDERED: Sacubitril/Valsartan 49/51(NF) TAB PO SCH (21:00)
[2018-12-31] MEDS: methylPREDNISolone SOD 40 MG* 1 ML VIAL IV SCH (22:22)
[2019-01-01] MEDS: Ropinirole TAB* 0.5 MG TAB PO SCH ×3 (01:11→20:16)
[2019-01-01] MEDS: Gabapentin CAP(*) 400 MG PO SCH ×2 (01:12→09:10)
[2019-01-01] MEDS: Acetaminophen TAB* 325 MG PO PRN ×2 (01:16→09:10)
[2019-01-01 06:06] LABS: ABS Monocytes 0.5 10^3/ul (0-0.8); ABS Neutrophils 13.3 10^3/ul (1.5-7.7); Hematocrit 35 % (35-47); Hemoglobin 11.9 g/dL (12.0-16.0); Lymphocyte % 6.9 %; Mean Corpuscular HGB Conc 34 g/dL (31-36); Mean Corpuscular Hemoglobin 33 pg (27-31); Mean Corpuscular Volume 96 fL (80-97); Mean Platelet Volume 7.8 fL (7.4-10.4); Platelet Count 435 10^3/uL (150-450); Red Blood Count 3.66 10^6 /uL (3.70-4.87); Red Cell Distribution Width 13 % (10-15); White Blood Count 14.8 10^3/uL (3.5-10.8)
[2019-01-01 06:33] LABS: BUN/Creatinine Ratio 20.3 (8-20); Calcium 8.5 mg/dL (8.6-10.3); EGFR Non-African American 85.9 (>60); Potassium 4.5 mmol/L (3.5-5.0)
[2019-01-01] MEDS: Mometasone/Formoter 200/5 MDI INH SCH ×2 (07:27→19:47)
[2019-01-01] MEDS ORDERED: Benzocaine/Menthol LOZ* 1 LOZENGE PO PRN (08:31)
[2019-01-01] MEDS: Benzonatate CAP* 100 MG PO SCH ×2 (09:09→20:16)
[2019-01-01] MEDS: CMC:Rosuvastatin (NF) 20 MG TAB PO SCH (09:10)
[2019-01-01] MEDS: Spironolactone TAB* 25 MG PO SCH (09:10)
[2019-01-01] MEDS: Carvedilol TAB* 6.25 MG PO SCH ×2 (09:10→20:16)
[2019-01-01] MEDS: FLUoxetine CAP* 20 MG PO SCH (09:10)
[2019-01-01] MEDS: Pantoprazole TAB * 40 MG TAB PO SCH (09:10)
[2019-01-01] MEDS: DULoxetine DR CAP* 60 MG CAP.DR PO SCH (09:10)
[2019-01-01] MEDS: Aspirin EC TAB* 81 MG TAB.EC PO SCH (09:10)
[2019-01-01] MEDS: methylPREDNISolone SOD 40 MG* 1 ML VIAL IV SCH ×2 (10:50→23:27)
[2019-01-01] MEDS: cefTRIAXone(*) 1 GM in NS 0.9% 50 ML* 50 ML IVPB SCH (14:45)
[2019-01-01] MEDS: Azithromycin 500 mg/250 ml NS 500 MG/250 ML BAG IVPB SCH (15:22)
[2019-01-01] MEDS: Enoxaparin(*) 40 MG/0.4 ML SYR SUBCUT SCH (15:23)
--- NOTE | 2019-01-01 18:36 | PN ---
Subjective Date of Service: 01/01/19 Interval History: Ms. Fritz is feeling a little better today. She still has significant SOB, especially with ambulation. Has only been up ambulating to the bathroom. Has an occasional cough. Denies CP. No concerns from nursing. Family History: Unchanged from Admission Social History: Unchanged from Admission Past Medical History: Unchanged from Admission Objective Active Medications: Acetaminophen (Tylenol Tab*) 650 mg PO Q4H PRN MILD PAIN or TEMP > 100.4 Albuterol/Ipratropium (Duoneb (Albuterol 2.5 Mg/Ipratropium 0.5 Mg)) 1 neb INH [id number] AWAKE PRN sob/wheexing Aspirin (Aspirin Ec Tab*) 81 mg PO DAILY [facility] Benzonatate (Tessalon Cap*) 100 mg PO BID [facility] Carvedilol (Coreg Tab*) 6.25 mg PO DAILY [facility]; Protocol Carvedilol (Coreg Tab*) 12.5 mg PO 2100 [facility]TW[facility]; Protocol Duloxetine HCl (Cymbalta Cap*) 60 mg PO DAILY [facility] Enoxaparin Sodium (Lovenox(*)) 40 mg SUBCUT Q24H [facility] Fluoxetine HCl (Prozac Cap*) 20 mg PO DAILY [facility] Gabapentin (Neurontin Cap(*)) 800 mg PO DAILY [facility] Azithromycin (Zithromax 500 Mg/250 Ml) 500 mg in 250 mls @ 250 mls/hr IVPB Q24H [facility] Ceftriaxone Sodium 1 gm/ (Sodium Chloride) 50 mls @ 100 mls/hr IVPB Q24H [facility] Methylprednisolone Sodium Succinate (Solu-Medrol 40 Mg) 40 mg IV Q12H [facility]TW[facility] Mometasone Furoate/Formoterol Fumar (Dulera 200/5 Mdi*) 2 puff INH BID [facility]TW[facility]; Protocol Pantoprazole Sodium (Protonix Tab*) 40 mg PO DAILY [facility] Ropinirole HCl (Requip Tab*) 0.5 mg PO BID [facility] Rosuvastatin Calcium (Crestor (Nf)) 20 mg PO QAM [facility] Sacubitril/Valsartan (Entresto 49/51(Nf)) 1 tab PO BID [facility] Spironolactone (Aldactone Tab*) 25 mg PO DAILY [facility] Throat Lozenges (Chloraseptic Mike*) 1 mike PO Q6H PRN SORE THROAT Vital Signs - 8 hr 01/01/19 01/01/19 11:15 15:15 Temperature 98.0 F 98.2 F Pulse Rate 76 86 Respiratory 24 18 Rate Blood Pressure 125/72 99/66 (mmHg) O2 Sat by Pulse 91 93 Oximetry Oxygen Devices in Use Now: Nasal Cannula - 2L Appearance: Middle-aged female laying in bed in NAD Ears/Nose/Mouth/Throat: Mucous Membranes Moist Neck: NL Appearance and Movements; NL JVP, Trachea Midline Respiratory: Symmetrical Chest Expansion and Respiratory Effort, - - Diminished throughout Cardiovascular: NL Sounds; No Murmurs; No JVD, RRR Abdominal: NL Sounds; No Tenderness; No Distention Extremities: No Edema Neurological: Alert and Oriented x 3 Lines/Tubes/Other Access: Clean, Dry and Intact Peripheral IV Nutrition: Taking PO's Result Diagrams: 01/01/19 05:43 01/01/19 05:43 Assess/Plan/Problems-Billing Assessment: Ms. Fritz is a 63 yo F with PMH of CAD with stents, COPD, cardiomyopathy, GERD, and SANJUANA; who presented to the ED with c/o SOB and was found to be hypoxic and meeting sepsis criteria, admitted for COPD exacerbation. - Patient Problems (1) COPD exacerbation Code(s): J44.1 - CHRONIC OBSTRUCTIVE PULMONARY DISEASE W (ACUTE) EXACERBATION Comment: - Failed outpatient therapy on amoxicillin and predisone - Requiring 3L on admission, now down to 2L - CXR unremarkable - Negative Legionella and Strep pneumo urine antigens - Sputum culture pending - Continue Solu-Medrol, ceftriaxone, azithromycin, nebs, Dulera (2) Sepsis Comment: - Met criteria on admission with leukocytosis, tachypnea, tachycardia - No obvious source of infection, likely secondary to COPD exacerbation - Plan as above (3) Cardiomyopathy Code(s): I42.9 - CARDIOMYOPATHY, UNSPECIFIED Comment: - Most recent EF 35-40% - Continue Entresto, spironolactone, carvedilol (4) CAD (coronary artery disease) Code(s): I25.10 - ATHSCL HEART DISEASE OF [place] CORONARY ARTERY W/O ANG PCTRS Comment: - History of stents in 2007 - Continue aspirin, carvedilol, rosuvastatin (5) Hyperlipidemia Code(s): E78.5 - HYPERLIPIDEMIA, UNSPECIFIED Comment: - Continue rosuvastatin (6) Anxiety and depression Code(s): F41.9 - ANXIETY DISORDER, UNSPECIFIED; F32.9 - MAJOR DEPRESSIVE DISORDER, SINGLE EPISODE, UNSPECIFIED Comment: - Continue duloxetine, fluoxetine (7) SANJUANA (obstructive sleep apnea) Code(s): G47.33 - OBSTRUCTIVE SLEEP APNEA (ADULT) (PEDIATRIC) Comment: - CPAP (8) GERD (gastroesophageal reflux disease) Code(s): K21.9 - GASTRO-ESOPHAGEAL REFLUX DISEASE WITHOUT ESOPHAGITIS Comment : - Continue pantoprazole (9) DVT prophylaxis Code(s): Z29.9 - ENCOUNTER FOR PROPHYLACTIC MEASURES, UNSPECIFIED Comment: - Lovenox (10) Full code status Code(s): Z78.9 - OTHER SPECIFIED HEALTH STATUS Comment: Status and Disposition: Inpatient. Anticipate d/c home when medically stable. Attending: Blair Johansen
[2019-01-01] MEDS: VALSARTAN PO SCH (21:11)
[2019-01-01] MEDS: SACUBITRIL PO SCH (21:11)
[2019-01-02] MEDS: Mometasone/Formoter 200/5 MDI INH SCH ×2 (08:19→19:36)
[2019-01-02] MEDS: Aspirin EC TAB* 81 MG TAB.EC PO SCH (08:54)
[2019-01-02] MEDS: CMC:Rosuvastatin (NF) 20 MG TAB PO SCH (08:55)
[2019-01-02] MEDS: Carvedilol TAB* 6.25 MG PO SCH ×2 (08:55→20:35)
[2019-01-02] MEDS: Gabapentin CAP(*) 400 MG PO SCH (08:55)
[2019-01-02] MEDS: Ropinirole TAB* 0.5 MG TAB PO SCH ×2 (08:55→20:36)
[2019-01-02] MEDS: FLUoxetine CAP* 20 MG PO SCH (08:56)
[2019-01-02] MEDS: VALSARTAN PO SCH ×2 (08:57→20:36)
[2019-01-02] MEDS: Pantoprazole TAB * 40 MG TAB PO SCH (08:57)
[2019-01-02] MEDS: Spironolactone TAB* 25 MG PO SCH (08:57)
[2019-01-02] MEDS: Benzonatate CAP* 100 MG PO SCH ×2 (08:57→20:35)
[2019-01-02] MEDS: DULoxetine DR CAP* 60 MG CAP.DR PO SCH (08:57)
[2019-01-02] MEDS: SACUBITRIL PO SCH ×2 (08:57→20:36)
[2019-01-02] MEDS: methylPREDNISolone SOD 40 MG* 1 ML VIAL IV SCH ×2 (12:49→22:55)
[2019-01-02] MEDS: cefTRIAXone(*) 1 GM in NS 0.9% 50 ML* 50 ML IVPB SCH (14:29)
[2019-01-02] MEDS: Enoxaparin(*) 40 MG/0.4 ML SYR SUBCUT SCH (14:30)
--- NOTE | 2019-01-02 14:33 | PN ---
Subjective Date of Service: 01/02/19 Interval History: Ms. Fritz is feeling a little better today, but still poor overall. Mildly SOB in bed, but significant SOB on exertion to the bathroom. Low energy level. Frequent dry cough. Denies CP, N/V. No concerns from nursing. Family History: Unchanged from Admission Social History: Unchanged from Admission Past Medical History: Unchanged from Admission Objective Active Medications: Acetaminophen (Tylenol Tab*) 650 mg PO Q4H PRN MILD PAIN or TEMP > 100.4 Albuterol/Ipratropium (Duoneb (Albuterol 2.5 Mg/Ipratropium 0.5 Mg)) 1 neb INH [id number] AWAKE PRN sob/wheexing Aspirin (Aspirin Ec Tab*) 81 mg PO DAILY ANTWAN Benzonatate (Tessalon Cap*) 100 mg PO BID ANTWAN Carvedilol (Coreg Tab*) 6.25 mg PO DAILY ANTWAN; Protocol Carvedilol (Coreg Tab*) 12.5 mg PO 2100 ANTWAN; Protocol Duloxetine HCl (Cymbalta Cap*) 60 mg PO DAILY ANTWAN Enoxaparin Sodium (Lovenox(*)) 40 mg SUBCUT Q24H ANTWAN Fluoxetine HCl (Prozac Cap*) 20 mg PO DAILY ANTWAN Gabapentin (Neurontin Cap(*)) 800 mg PO DAILY ANTWAN Azithromycin (Zithromax 500 Mg/250 Ml) 500 mg in 250 mls @ 250 mls/hr IVPB Q24H ANTWAN Ceftriaxone Sodium 1 gm/ (Sodium Chloride) 50 mls @ 100 mls/hr IVPB Q24H ANTW[facility] Methylprednisolone Sodium Succinate (Solu-Medrol 40 Mg) 40 mg IV Q12H ANTWAN Mometasone Furoate/Formoterol Fumar (Dulera 200/5 Mdi*) 2 puff INH BID ANTWAN; Protocol Pantoprazole Sodium (Protonix Tab*) 40 mg PO DAILY ANTWAN Ropinirole HCl (Requip Tab*) 0.5 mg PO BID ANTWAN Rosuvastatin Calcium (Crestor (Nf)) 20 mg PO QAM ANTWAN Sacubitril/Valsartan (Entresto 49/51(Nf)) 1 tab PO BID ANTWAN Spironolactone (Aldactone Tab*) 25 mg PO DAILY ANTWAN Throat Lozenges (Chloraseptic Mike*) 1 mike PO Q6H PRN SORE THROAT Vital Signs - 8 hr 01/02/19 01/02/19 01/02/19 07:55 08:00 08:20 Pulse Rate 72 76 Respiratory 26 23 16 Rate Blood Pressure 135/71 (mmHg) O2 Sat by Pulse 97 92 Oximetry 01/02/19 01/02/19 08:55 12:53 Pulse Rate Respiratory 26 23 Rate Blood Pressure (mmHg) O2 Sat by Pulse 91 Oximetry Oxygen Devices in Use Now: Nasal Cannula - 1L Appearance: Middle-aged female laying in bed in NAD Ears/Nose/Mouth/Throat: Mucous Membranes Moist Neck: NL Appearance and Movements; NL JVP, Trachea Midline Respiratory: Symmetrical Chest Expansion and Respiratory Effort, - - Diminished throughout Cardiovascular: NL Sounds; No Murmurs; No JVD, RRR Abdominal: NL Sounds; No Tenderness; No Distention Extremities: No Edema Neurological: Alert and Oriented x 3 Lines/Tubes/Other Access: Clean, Dry and Intact Peripheral IV Nutrition: Taking PO's Result Diagrams: 01/01/19 05:43 01/01/19 05:43 Assess/Plan/Problems-Billing Assessment: Ms. Fritz is a 63 yo F with PMH of CAD with stents, COPD, cardiomyopathy, GERD, and SANJUANA; who presented to the ED with c/o SOB and was found to be hypoxic and meeting sepsis criteria, admitted for COPD exacerbation. - Patient Problems (1) COPD exacerbation Code(s): J44.1 - CHRONIC OBSTRUCTIVE PULMONARY DISEASE W (ACUTE) EXACERBATION Comment: - Failed outpatient therapy on amoxicillin and predisone - Requiring 3L on admission, now down to 1L - CXR unremarkable - Negative Legionella and Strep pneumo urine antigens - Sputum culture only growing yeast - Continue Solu-Medrol, ceftriaxone, azithromycin, nebs, Dulera (2) Acute respiratory failure with hypoxia Code(s): J96.01 - ACUTE RESPIRATORY FAILURE WITH HYPOXIA Comment: - Requiring 3L on admission, now down to 1L - Will need ambulatory testing prior to d/c - Continue Solu-Medrol (3) Sepsis Comment: - Met criteria on admission with leukocytosis, tachypnea, tachycardia - No obvious source of infection, likely secondary to COPD exacerbation - Plan as above (4) Cardiomyopathy Code(s): I42.9 - CARDIOMYOPATHY, UNSPECIFIED Comment: - Most recent EF 35-40% - Continue Entresto, spironolactone, carvedilol (5) CAD (coronary artery disease) Code(s): I25.10 - ATHSCL HEART DISEASE OF [place] CORONARY ARTERY W/O ANG PCTRS Comment: - History of stents in 2007 - Continue aspirin, carvedilol, rosuvastatin (6) Hyperlipidemia Code(s): E78.5 - HYPERLIPIDEMIA, UNSPECIFIED Comment: - Continue rosuvastatin (7) Anxiety and depression Code(s): F41.9 - ANXIETY DISORDER, UNSPECIFIED; F32.9 - MAJOR DEPRESSIVE DISORDER, SINGLE EPISODE, UNSPECIFIED Comment: - Continue duloxetine, fluoxetine (8) SANJUANA (obstructive sleep apnea) Code(s): G47.33 - OBSTRUCTIVE SLEEP APNEA (ADULT) (PEDIATRIC) Comment: - CPAP (9) GERD (gastroesophageal reflux disease) Code(s): K21.9 - GASTRO-ESOPHAGEAL REFLUX DISEASE WITHOUT ESOPHAGITIS Comment : - Continue pantoprazole (10) DVT prophylaxis Code(s): Z29.9 - ENCOUNTER FOR PROPHYLACTIC MEASURES, UNSPECIFIED Comment: - Lovenox (11) Full code status Code(s): Z78.9 - OTHER SPECIFIED HEALTH STATUS Comment: Status and Disposition: Inpatient. Anticipate d/c home when medically stable, hopefully tomorrow. Attending: Elvia Torres
[2019-01-02] MEDS: Azithromycin 500 mg/250 ml NS 500 MG/250 ML BAG IVPB SCH (15:52)
[2019-01-02] MEDS: Acetaminophen TAB* 325 MG PO PRN (20:38)
[2019-01-03] MEDS: Mometasone/Formoter 200/5 MDI INH SCH (08:10)
[2019-01-03] MEDS: Benzonatate CAP* 100 MG PO SCH ×2 (10:30→20:15)
[2019-01-03] MEDS: Aspirin EC TAB* 81 MG TAB.EC PO SCH (10:30)
[2019-01-03] MEDS: DULoxetine DR CAP* 60 MG CAP.DR PO SCH (10:30)
[2019-01-03] MEDS: Gabapentin CAP(*) 400 MG PO SCH (10:30)
[2019-01-03] MEDS: Carvedilol TAB* 6.25 MG PO SCH ×2 (10:31→20:15)
[2019-01-03] MEDS: Spironolactone TAB* 25 MG PO SCH (10:32)
[2019-01-03] MEDS: FLUoxetine CAP* 20 MG PO SCH (10:32)
[2019-01-03] MEDS: Pantoprazole TAB * 40 MG TAB PO SCH (10:32)
[2019-01-03] MEDS: Ropinirole TAB* 0.5 MG TAB PO SCH ×2 (10:32→20:15)
[2019-01-03] MEDS: CMC:Rosuvastatin (NF) 20 MG TAB PO SCH (10:32)
[2019-01-03] MEDS: SACUBITRIL PO SCH (11:39)
[2019-01-03] MEDS: methylPREDNISolone SOD 40 MG* 1 ML VIAL IV SCH ×2 (11:39→22:42)
[2019-01-03] MEDS: VALSARTAN PO SCH (11:39)
[2019-01-03] MEDS: cefTRIAXone(*) 1 GM in NS 0.9% 50 ML* 50 ML IVPB SCH (13:38)
[2019-01-03] MEDS: Enoxaparin(*) 40 MG/0.4 ML SYR SUBCUT SCH (14:58)
[2019-01-03] MEDS: Azithromycin 500 mg/250 ml NS 500 MG/250 ML BAG IVPB SCH (14:58)
--- NOTE | 2019-01-03 17:46 | PN ---
Subjective Date of Service: 01/03/19 Interval History: Patient seen and examined. Visibly tachypneic, and remains on O2 but states she feels a little better today. No acute overnight events. No fevers, or chills. Complains of unproductive cough. Family History: Unchanged from Admission Social History: Unchanged from Admission Past Medical History: Unchanged from Admission Objective Active Medications: Acetaminophen (Tylenol Tab*) 650 mg PO Q4H PRN PRN Reason: MILD PAIN or TEMP > 100.4 Last Admin: 01/02/19 20:38 Dose: 650 mg Albuterol/Ipratropium (Duoneb (Albuterol 2.5 Mg/Ipratropium 0.5 Mg)) 1 neb INH RT.[id number] AWAKE PRN PRN Reason: sob/wheexing Aspirin (Aspirin Ec Tab*) 81 mg PO DAILY [facility] Last Admin: 01/03/19 10:30 Dose: 81 mg Benzonatate (Tessalon Cap*) 100 mg PO BID [facility] Last Admin: 01/03/19 10:30 Dose: 100 mg Carvedilol (Coreg Tab*) 6.25 mg PO DAILY [facility]; Protocol Last Admin: 01/03/19 10:31 Dose: 6.25 mg Carvedilol (Coreg Tab*) 12.5 mg PO 2100 [facility]; Protocol Last Admin: 01/02/19 20:35 Dose: 12.5 mg Duloxetine HCl (Cymbalta Cap*) 60 mg PO DAILY [facility] Last Admin: 01/03/19 10:30 Dose: 60 mg Enoxaparin Sodium (Lovenox(*)) 40 mg SUBCUT Q24H ANTWAN Last Admin: 01/03/19 14:58 Dose: 40 mg Fluoxetine HCl (Prozac Cap*) 20 mg PO DAILY ANTWAN Last Admin: 01/03/19 10:32 Dose: 20 mg Gabapentin (Neurontin Cap(*)) 800 mg PO DAILY [facility] Last Admin: 01/03/19 10:30 Dose: 800 mg Azithromycin (Zithromax 500 Mg/250 Ml) 500 mg in 250 mls @ 250 mls/hr IVPB Q24H ANTWAN Last Admin: 01/03/19 14:58 Dose: 250 mls/hr Ceftriaxone Sodium 1 gm/ (Sodium Chloride) 50 mls @ 100 mls/hr IVPB Q24H ANTWAN Last Admin: 01/03/19 13:38 Dose: 100 mls/hr Methylprednisolone Sodium Succinate (Solu-Medrol 40 Mg) 40 mg IV Q12H [facility] Last Admin: 01/03/19 11:39 Dose: 40 mg Mometasone Furoate/Formoterol Fumar (Dulera 200/5 Mdi*) 2 puff INH BID [facility]; Protocol Last Admin: 01/03/19 08:10 Dose: 2 puff Pantoprazole Sodium (Protonix Tab*) 40 mg PO DAILY [facility] Last Admin: 01/03/19 10:32 Dose: 40 mg Ropinirole HCl (Requip Tab*) 0.5 mg PO BID [facility] Last Admin: 01/03/19 10:32 Dose: 0.5 mg Rosuvastatin Calcium (Crestor (Nf)) 20 mg PO QAM [facility] Last Admin: 01/03/19 10:32 Dose: 20 mg Sacubitril/Valsartan (Entresto 49/51(Nf)) 1 tab PO BID [facility] Last Admin: 01/03/19 11:39 Dose: 1 tab Spironolactone (Aldactone Tab*) 25 mg PO DAILY [facility] Last Admin: 01/03/19 10:32 Dose: 25 mg Throat Lozenges (Chloraseptic Mike*) 1 mike PO Q6H PRN PRN Reason: SORE THROAT Last Admin: 01/01/19 09:10 Dose: 1 mike Vital Signs - 8 hr 01/03/19 01/03/19 01/03/19 09:50 10:30 12:06 Temperature 98.0 F Pulse Rate 73 Respiratory 20 20 Rate Blood Pressure 136/76 (mmHg) O2 Sat by Pulse 91 93 Oximetry 01/03/19 01/03/19 01/03/19 13:06 13:22 15:20 Temperature 98.3 F Pulse Rate 77 Respiratory 18 18 18 Rate Blood Pressure 130/68 (mmHg) O2 Sat by Pulse 93 Oximetry Oxygen Devices in Use Now: Nasal Cannula Appearance: alert, NAD Eyes: PERRLA Ears/Nose/Mouth/Throat: NL Teeth, Lips, Gums, Clear Oropharnyx Neck: NL Appearance and Movements; NL JVP, Trachea Midline Respiratory: Symmetrical Chest Expansion and Respiratory Effort, - - bilateral rhonchi, no rales, tachypneic, shallow respirations Cardiovascular: NL Sounds; No Murmurs; No JVD, RRR, No Edema Extremities: No Edema Skin: No Rash or Ulcers Neurological: Alert and Oriented x 3, NL Gait Nutrition: Taking PO's Result Diagrams: 01/01/19 05:43 01/01/19 05:43 Microbiology and Other Data: Microbiology 12/31/18 11:20 Aerobic Blood Culture - Preliminary Blood Venous No Growth Day 3 Anaerobic Blood Culture - Preliminary No Growth Day 3 12/31/18 11:20 Aerobic Blood Culture - Preliminary Blood Venous No Growth Day 3 Anaerobic Blood Culture - Preliminary No Growth Day 3 12/31/18 20:45 Gram Stain - Final Sputum Expectorated Sputum Culture - Final YEAST Normal Ines 12/31/18 15:02 Urine Culture - Final Urine No Growth (<1,000 CFU/mL) 12/31/18 15:02 Legionella Urinary Antigen - Final Urine Negative Legionella Antigen Streptococcus pneumoniae Ag Screen - Final Negative S. pneumo Antigen Diagnostic Imaging: Patient Name: DANTE FRITZ Medical Record#: [id number] Ordering Physician: Juan Pablo Adair MD Acct.#: [id number] : 1955 Age: 63 Sex: F Location: EMERGENCY DEPARTMENT Exam Date: 12/31/18 1052 ADM Status: REG ER Order Information: CHEST PA & LAT 2 VWS Accession Number: [id number] CPT: 40727 INDICATION: Shortness of breath COMPARISON: December 22, 2018 chest radiograph TECHNIQUE: Dual-energy PA and lateral views of the chest were obtained. FINDINGS: The hyperinflated lungs are predominantly clear. There is no pleural effusion. The cardiomediastinal silhouette is within normal limits. The upper abdominal contents are normal. Osseous structures are unremarkable. IMPRESSION: Hyperinflated lungs with no focal airspace opacification. Assess/Plan/Problems-Billing Assessment: Ms. Fritz is a 63 yo F with PMH of CAD with stents, COPD, cardiomyopathy, GERD, and SANJUANA; who presented to the ED with c/o SOB and was found to be hypoxic and meeting sepsis criteria, admitted for COPD exacerbation. - Patient Problems (1) COPD exacerbation Code(s): J44.1 - CHRONIC OBSTRUCTIVE PULMONARY DISEASE W (ACUTE) EXACERBATION SNOMED Code(s): 797790074 Comment: - Failed outpatient therapy on amoxicillin and predisone - Requiring 3L on admission, now down to 1L - CXR unremarkable - Negative Legionella and Strep pneumo urine antigens - Sputum culture only growing yeast - Continue Solu-Medrol, ceftriaxone, azithromycin, nebs, Dulera (2) Acute respiratory failure with hypoxia Code(s): J96.01 - ACUTE RESPIRATORY FAILURE WITH HYPOXIA SNOMED Code(s): 72022791 Comment: - Requiring 3L on admission, now down to 1L - Will need ambulatory testing prior to d/c - Continue Solu-Medrol, making slow progress (3) CAD (coronary artery disease) Code(s): I25.10 - ATHSCL HEART DISEASE OF [place] CORONARY ARTERY W/O ANG PCTRS SNOMED Code(s): 47268622 Comment: - History of stents in 2007 - Continue aspirin, carvedilol, rosuvastatin (4) SANJUANA (obstructive sleep apnea) Code(s): G47.33 - OBSTRUCTIVE SLEEP APNEA (ADULT) (PEDIATRIC) SNOMED Code(s): 64969150 Comment: - CPAP (5) DVT prophylaxis Code(s): Z29.9 - ENCOUNTER FOR PROPHYLACTIC MEASURES, UNSPECIFIED SNOMED Code( s): 107914125 Comment: - Lovenox (6) Full code status Code(s): Z78.9 - OTHER SPECIFIED HEALTH STATUS SNOMED Code(s): 771792844 Comment: Status and Disposition: Inpatient. Anticipate d/c home when medically stable, 1-2 days, may need home O2
[2019-01-04 06:00] LABS: ABS Basophils 0.1 10^3/ul (0-0.2); ABS Lymphocytes 1.3 10^3/ul (1.0-4.8); ABS Monocytes 0.6 10^3/ul (0-0.8); ABS Neutrophils 11.5 10^3/ul (1.5-7.7); Hematocrit 36 % (35-47); Lymphocyte % 9.4 %; Mean Corpuscular HGB Conc 33 g/dL (31-36); Mean Corpuscular Hemoglobin 32 pg (27-31); Mean Corpuscular Volume 96 fL (80-97); Mean Platelet Volume 7.8 fL (7.4-10.4); Platelet Count 483 10^3/uL (150-450); Red Blood Count 3.76 10^6 /uL (3.70-4.87); Red Cell Distribution Width 13 % (10-15); White Blood Count 13.4 10^3/uL (3.5-10.8)
[2019-01-04 06:20] LABS: BUN/Creatinine Ratio 26.8 (8-20); EGFR African American 132.3 (>60); EGFR Non-African American 109.3 (>60); Potassium 4.1 mmol/L (3.5-5.0)
[2019-01-04] MEDS: Mometasone/Formoter 200/5 MDI INH SCH ×2 (06:48→08:37)
[2019-01-04] MEDS: Aspirin EC TAB* 81 MG TAB.EC PO SCH (09:04)
[2019-01-04] MEDS: Benzonatate CAP* 100 MG PO SCH (09:04)
[2019-01-04] MEDS: Gabapentin CAP(*) 400 MG PO SCH (09:05)
[2019-01-04] MEDS: DULoxetine DR CAP* 60 MG CAP.DR PO SCH (09:05)
[2019-01-04] MEDS: Pantoprazole TAB * 40 MG TAB PO SCH (09:05)
[2019-01-04] MEDS: Ropinirole TAB* 0.5 MG TAB PO SCH (09:05)
[2019-01-04] MEDS: CMC:Rosuvastatin (NF) 20 MG TAB PO SCH (09:05)
[2019-01-04] MEDS: FLUoxetine CAP* 20 MG PO SCH (09:05)
[2019-01-04] MEDS: Carvedilol TAB* 6.25 MG PO SCH (09:06)
[2019-01-04 11:32] VITALS: BP 129/73
--- NOTE | 2019-01-04 23:14 | DS ---
CC: Dr. Ailin Doulgas * DISCHARGE SUMMARY: DATE OF ADMISSION: 12/31/18 DATE OF DISCHARGE: 01/04/19 PRIMARY CARE PROVIDER: Ailin Douglas MD. MY ATTENDING FOR THIS DISCHARGE: Dr. Blair Johansen.* (DICTATED BY JUNIOR ESCOBAR NP) HOSPITAL COURSE: Please refer to the admitting H and P on 12/31/18, but in short, Ms. Barb Fritz is a 63-year-old female patient with history of COPD, also coronary artery disease, cardiomyopathy with reduced ejection fraction of 35% to 40%, GERD and obstructive sleep apnea, on CPAP at night that presented to the emergency department with complaints of shortness of breath for a total of 10 days. She states that she was seen by her PCP on 12/25/18, at which time she was placed on antibiotics and prednisone for suspected URI. She states that she did not feel any improvement after completing her course of antibiotics and prednisone. She was using her CPAP at night and then started using it during the day for her increasing shortness of breath. She also endorses coughing and pain with deep breathing, at which time she came to the emergency department for evaluation. She was found to have leukocytosis, tachycardia and tachypnea. She was also found to have reduced oxygen saturation and was placed on supplemental O2. She was meeting SIRS criteria; however, she did not have a consolidation on chest x-ray. She was admitted for COPD exacerbation. She received loading dose of Solu-Medrol of 125 mg IV and continued on IV Solu-Medrol 40 mg q.12 hours, started on DuoNeb nebulizer treatments, was also empirically placed on azithromycin for antiinflammatory properties and ceftriaxone while in the ED. Sputum culture was also collected as were blood cultures. In terms of her leukocytosis, she did not have a fever and she did not appear to have underlying infection, as her chest x-ray was clear. However, her tachypnea and tachycardia with an elevated CRP did initially give us concern for pneumonia. During the course of her treatment, it did appear that she did have increased sputum production and she continued to respond to treatment for COPD exacerbation. Her oxygen was weaned down from 3 L to 1 L and then over the last 24 hours from 01/03/19 to 01/04/19, the patient has been on room air. She was persistently tachypneic up until 01/03/19 ; however, today on the day of discharge, the patient feels she is back at her baseline. She is not complaining of any shortness of breath. Her leukocytosis has improved. She did not mount any fevers during her stay nor did she have any further compensatory tachycardia or hypotension to indicate sepsis. Her Strep legionella and Strep pneumo antigens were negative. Her sputum culture was also negative. She had some normal mitesh and yeast only. Blood cultures were also negative. The patient was ready for discharge on 01/04/19. She did not require oxygen for home. We did discuss the only additional finding that she had during the stay, which was a decreased sodium. The patient came in initially with a low sodium of 128 on 12/31/18. Her sodium did remain low in the 126 to 127 range. She was placed on fluid restrictions. Two of her medications were held, her Entresto and her spironolactone. The patient does state that she has had low sodium in the past because she did receive IV fluids initially, but also could be attributed to her medications. We held her 2 meds and placed her on fluid restriction; however, the patient is completely asymptomatic and clinically feeling better and improved. The patient did agree to follow up with her primary care provider to have her sodium rechecked in the next 3 to 4 days. Also, she agreed to hold her diuretic and her Entresto for another day and then restarted on Tuesday. We will defer to her primary care provider and/or her panel coverer in terms of the monitoring of her sodium and remaining on 2 medications that could potentially continue to cause hyponatremia. The patient remains is medically stable for discharge to home today. REVIEW OF SYSTEMS: A 10-point review of systems is negative except as noted in hospital course above. DISCHARGE DIAGNOSES: 1. Chronic obstructive pulmonary disease exacerbation, failed outpatient treatment. 2. Acute hypoxic respiratory failure. 3. Systemic inflammatory response syndrome criteria secondary to #1. 4. Asymptomatic Hyponatremia. SECONDARY DIAGNOSES: 1. History of coronary artery disease. 2. Obstructive sleep apnea, on CPAP. 3. History of cardiomyopathy. DISCHARGE MEDICATIONS: Include: 1. Ropinirole 0.5 mg 1 tab p.o. b.i.d. 2. Carvedilol 10 mg p.o. daily. 3. [place] 1 tab p.o. q.6 hours as needed. 4. Ventolin 1 to 2 puffs inhaled q.4 hours as needed. 5. Cymbalta 60 mg p.o. daily. 6. Symbicort 2 puffs inhaled p.o. b.i.d. 7. Aspirin 81 mg daily. 8. Crestor 20 mg p.o. daily. 9. K-Chlor 10 mEq p.o. daily. 10. Protonix 20 mg p.o. daily. 11. Motrin 600 mg p.o. q.6 hours as needed. 12. Neurontin 400 to 800 mg p.o. as needed. 13. Fluoxetine 20 mg p.o. daily. 14. Aldactone 25 mg p.o. daily to be held until Tuesday and then restarted. 15. Entresto 49/51 one tab p.o. b.i.d. to be restarted on Tuesday. New medications: 1. Prednisone 50 mg p.o. daily x5 days, then stop. 2. Tessalon 100 mg [place] 1 tab p.o. b.i.d. as needed for cough. PHYSICAL EXAMINATION: On the day of discharge, the patient is awake and alert and in no acute distress. Vital signs are blood pressure 129/73, heart rate 85 , respiratory rate 16, O2 saturation 97% on room air with a temperature of 97.8. HEENT: The patient is atraumatic, normocephalic. PERRLA, nonicteric sclerae. Oral mucosa is moist. Tongue is midline. Neck is supple, nontender. No JVD noted. No carotid bruit auscultated. Cardiovascular: S1, S2 present. No murmurs, gallops, or rubs noted. Rate and rhythm are regular. Lungs are clear at the apices bilaterally. Diminished at the bases with no wheezing, rhonchi, or rales noted. Abdomen is soft, nontender, nondistended. Positive bowel sounds in all 4 quadrants. : Deferred. Musculoskeletal: There is no clubbing, no cyanosis. No pedal edema. She has +2 distal pulses palpable. Full range of motion. Gross motor and sensation are intact. Steady gait. Neurologic: Grossly intact. Psychiatric: Cooperative and appropriate. LABORATORY DATA: WBC is 13.4, RBC is 3.76, hemoglobin 12.0, hematocrit 36, platelets 435. Sodium 126, potassium 4.1, chloride 89, CO2 27, BUN 15, creatinine 0.56, GFR 109.3. Glucose 108, lactic acid 1.4. Calcium 9.0. Total bilirubin 0.50, AST 47, ALT 29, alk phos 115. Troponin 0.03. CRP 172.37. BNP 100. Total protein 7.0, albumin 3.6, globulin 3.4. IMAGING: Chest x-ray dated 12/31/18 shows hyperinflated lungs with no focal airspace opacification. No pleural effusion and no consolidation. EKG dated 12/31/18 shows sinus rhythm, no acute ST segment changes. DISPOSITION: The patient was discharged to home in stable condition. All questions were answered. The patient stated understanding of her discharge instructions, medications, and followup. The patient is instructed to follow up with Dr. Ailin Douglas, Tuesday or Tuesday of next week. She should have a followup BMP to check her sodium level. Again, we discussed at length, restarting her diuretic and her Entresto on Tuesday. She was also instructed to limit her free water take until sodium is rechecked. She was also instructed to either call Dr. Douglas's office or come back to the emergency department for evaluation if she does become acutely short of breath. DIET: Heart healthy diet as tolerated. ACTIVITY: Progress activity as tolerated. TIME SPENT: Forty five minutes on discharge planning. JUNIOR ESCOBAR NP [id number]/[facility] #: [id number] GIANA
== END 2019-01-04 14:32 | disposition home or self-care (01) | DRG 190 ==
LOC: ED 10:32 → MEDTELE 14:37
PROVIDERS: ADMIT Nurse Practitioner; ATTEND Internal Medicine
DX: J44.1 Chronic obstructive pulmonary disease with (acute) exacerbation (principal); J96.01 Acute respiratory failure with hypoxia; I42.9 Cardiomyopathy, unspecified; E87.1 Hypo-osmolality and hyponatremia; R65.10 Systemic inflammatory response syndrome (SIRS) of non-infectious origin without acute organ dysfunction; I25.10 Atherosclerotic heart disease of native coronary artery without angina pectoris; K21.9 Gastro-esophageal reflux disease without esophagitis; G47.33 Obstructive sleep apnea (adult) (pediatric); F32.9 Major depressive disorder, single episode, unspecified; F41.9 Anxiety disorder, unspecified; F17.210 Nicotine dependence, cigarettes, uncomplicated; E78.5 Hyperlipidemia, unspecified; D72.829 Elevated white blood cell count, unspecified; Z95.5 Presence of coronary angioplasty implant and graft; Z79.82 Long term (current) use of aspirin; Z79.51 Long term (current) use of inhaled steroids; Z79.899 Other long term (current) drug therapy; Z88.8 Allergy status to other drugs, medicaments and biological substances; Z82.49 Family history of ischemic heart disease and other diseases of the circulatory system; Z80.52 Family history of malignant neoplasm of bladder
CPT/HCPCS: 36415; 71046; 80048; 80053; 81003; 81015; 82803; 83605; 83880; 84484; 85025; 86140; 87040; 87070; 87086; 87205; 87899; 93005; 94640; 94660; 99284; A9270-GY; J0456; J0696; J1650; J2920; J2930

== ENCOUNTER 2019-01-08 15:28 | Emergency (ER) | payer MEDICARE, OTHER ==
--- OUTSIDE RECORDS SUMMARY | 2019-01-08 15:53 | XMS REPORT | Continuity of Care Document ---
:1955 External Reference #:[id number] Author Name Celine Argueta, CHRIS Address [address] [place] [address] Care Team Providers Name Role Phone Luís Gold - Oncology Care Team Information Firesetter [phone] Seth Astorga MD - Cardiovascular Care Team Information Firesetter [phone] Disease Scott Crespo - Pulmonary Disease Care Team Information Firesetter [phone] [facility] - Diagnostic Care Team Information Firesetter Radiology Ailin Douglas M.D. - Family Medicine Care Team Information Firesetter Unavailable Adriel Platt MD - Ophthalmology Care Team Information Firesetter [facility] - Oxygen Equipment & Supplies Care Team Information Firesetter [phone] Problems Active Problems Provider Date Hyperlipidemia Pako Gerard M.D. Onset: 04/29/2006 Depressive disorder Pako Gerard M.D. Onset: 04/29/2006 Raynaud's disease Pako Gerard M.D. Onset: 04/29/2006 Insomnia Pako Gerard M.D. Onset: 04/29/2006 Myalgia & Myositis Unspecified Pako Gerard M.D. Onset: 04/29/2006 Nondependent alcohol abuse in remission Jt Sewell M.D. Onset: 2010 Disorder of cardiovascular system Jt Sewell M.D. Onset: 03/31/2011 Mild recurrent major depression Jt Sewell M.D. Onset: 03/31/2011 Hand joint pain Jt Sewell M.D. Onset: 01/19/2012 Coronary arteriosclerosis Jt Sewell M.D. Onset: 03/23/2012 Congestive heart failure Jt Sewell M.D. Onset: 03/23/2012 Chronic obstructive lung disease Jt Sewell M.D. Onset: 05/03/2012 Chronic pain syndrome Ailin Douglas M.D. Onset: 12/03/2014 Obstructive sleep apnea syndrome Ailin Douglas M.D. Onset: 12/03/2014 Acute sinusitis Pako Gerard M.D. Onset: 09/12/2017 Alcohol dependence Ailin Douglas M.D. Onset: 05/01/2018 Cardiomyopathy Ailin Douglas M.D. Onset: 06/15/2018 Social History Type Date Description Comments Sex Unknown Tobacco Use Start: Unknown End: Former Cigarette Smoker age 16- 40's - 1-2 Unknown packs per day Tobacco Use Start: Unknown Current Cigarette Smoker 1-5 Cigarettes Daily Smoking Status Reviewed: 01/08/19 Current Cigarette Smoker 1-5 Cigarettes Daily ETOH Use Has consumed alcohol in relapse 09/25; was the past sober 4 years ETOH Use Currently consumes alcohol Tobacco Use Start: Unknown Patient is a current 1/2 ppd or less smoker, smokes every day Allergies, Adverse Reactions, Alerts Active Allergies Reaction Severity Comments Date Pravachol muscle pain 04/19/2013 Environmental 11/05/2014 Medications Active Medications SIG Qnty Indications Ordering Date Provider Ipratropium use bid- three 1box Kathy 12/25/2018 [place]/Albuterol times a day in [facility] Sulfate nebulizer as needed for 0.5-2.5(3)mg/3ML wheezing , sob dx Solution copd J44.9 [facility] Nicotine apply to clean dry 14units Kathy 12/25/2018 Transdermal System area of skin every [facility]- morning , remove 14mg/24HR Patches at at bedtime 24HR [facility] Nicotine apply to clean dry 14units Kathy 12/25/2018 Transdermal area of skin qd , [facility]- System/Step 3 remove at hs , after completing 7mg/24HR Patches 14 mg 24HR Ropinirole HCL Take 1 Tablet By 180tabs Adriel Eduardo 06/27/2018 0.5mg Mouth Twice A Day Danyel Norton Tablets Duloxetine HCL Take 1 Capsule By 90caps F33.0 Michael Valentine 04/19/2018 60mg Mouth Every Day Danyel Romero Caps DR Lewis Rosuvastatin Calcium Take 1 Tablet By 90tabs I25.10 Ailin Douglas, 2018 Mouth Daily M.D. 20mg Tablets I10 Symbicort use 2 puffs twice 30.6gm J44.1 Ailin Douglas, 04/19/2013 160-4.5mcg/Act daily M.D. Aerosol Fluoxetine HCL Take 1 Capsule By 270caps F33.0 Adriel Eduardo 11/30/2010 20mg Capsules Mouth Every [place], M.D. Morning And 2 Capsules Every Night Aspirin 1 po qd I10 Jt Sewell, 10/14/2009 81mg Chewtabs M.D. Coreg CR 2 by mouth every 90caps I10 Ailin Douglas, 11/29/2007 10mg Caps ER 24HR morning; 1 po qpm M.D. Entresto take 1 tablet by Unknown 49-51mg Tablets mouth twice a day Pantoprazole Sodium Take 1 Tablet By 90tabs K21.9 Ailin Douglas, 20mg Mouth Daily M.D. Tablets Hydrocodone-Acetaminophen 1 by mouth twice a 60tabs G89.4 [facility] Afnp-C 5-325mg Tablets neck/shoulder pain, mdd 2 tabs per day dx:719.44, chronic M54.2 Vitamin C take one every day Unknown 500mg Tablets Spironolactone 1/2 by mouth every Unknown 25mg Tablets day Ventolin HFA 2 puffs every 4 3units J44.1 Kathy [facility], 108(90Base) hours as needed Afnp-C mcg/Act Aerosol sob Potassium Chloride ER 1 po qd Unknown 10Meq Capsules ER Multivitamins 1 po qd Unknown Tablets Gabapentin Take 1 Tablet By 270tabs Ailin [place], 600mg Tablets Mouth Every M.D. Morning And 2 Tablets Every Night History Medications Note seen in this Kathy 12/25/2018 - office today, pt Deborah Mukherjee 01/01/2019 is unable to breath into her auto nebulizer over the next 1 week d/t illness Prednisone 2 by mouth every 12tabs Kathy 12/25/2018 - 20mg Tablets day x 4days, Sanchezchris-C 01/08/2019 then 1 by mouth every day x 4d, take with food Amoxicillin 1 tab twice a Unknown 12/22/2018 - 875mg Tablets day x 7 days 12/29/2018 Prednisone 1 po qd x 4 days Unknown 12/22/2018 - 20mg Tablets 12/25/2018 Cyclobenzaprine HCL take 1-2 tablets 14tabs G89.4 Celine Maria G 08/21/2018 - 5mg by mouth at Argueta, [employer] 10/15/2018 Tablets night as needed for muscle spasm Medications Administered in Office Medication SIG Qnty Indications Ordering Provider Date H1N1 MDCR vaccine any route Jt Sewell M.D. 04/16/2009 Injection Immunizations CPT Code Status Date Vaccine Lot # [id number] Given 01/07/2018 Influenza Vac, Quadrivalent, Slit Virus, Im [id number] 48119 Given 01/03/2017 Influenza Vac, [place], [place] [id number] Given 04/15/2015 Pneumococcal Immunization [id number] 40385 Given 04/15/2015 Tetanus And Diptheria Adult Preservative Free [id number] >7Yrs 77622 Given 02/01/2015 Influenza Vac, Quadrivalent, Slit Virus, Im [id number] Q2038 Given 02/02/2014 Split Influenza Medicare: Fluzone [id number] Q2038 Given 01/09/2013 Split Influenza Medicare: Fluzone 54901 Given 01/09/2013 DO Not Use Split Influenza Virus Vaccine [id number] 95366 Given 01/08/2010 DO Not Use Split Influenza Virus Vaccine [id number] 48931 Given 04/16/2009 H1N1 Virus Vaccine [id number] 00968 Given 12/23/2008 DO Not Use Split Influenza Virus Vaccine [id number] 52454 Given 06/28/2005 Tdap Tetanus, W Pertussis [id number] 53706 Given 07/30/1999 Lyme Disease Immunization 49186 Given 08/29/1998 Lyme Disease Immunization 85980 Given 07/31/1998 Lyme Disease Immunization Vital Signs Date Vital Result Comment 01/08/2019 2:06pm BP Systolic 80 mmHg laying 90/64 sitting 80/60 standing 70/64 BP Diastolic 52 mmHg laying 90/64 sitting 80/60 standing 70/64 Heart Rate 76 /min laying 75 sitting 81 standing 86 Body Temperature 97.5 F Respiratory Rate 32 /min O2 % BldC Oximetry 94 % Height 61.5 inches 5'1.50" Weight 112.00 lb BMI (Body Mass Index) 20.8 kg/m2 12/25/2018 11:04am BP Systolic 142 mmHg BP Diastolic 76 mmHg Heart Rate 79 /min Body Temperature 98.5 F Respiratory Rate 20 /min O2 % BldC Oximetry 90 % Height 61.5 inches 5'1.50" Weight 108.00 lb BMI (Body Mass Index) 20.1 kg/m2 Results Test Date Facility Test Result H/L Range Note Laboratory test 12/31/2018 [facility] [place] Antigen SEE RESULT 1 finding By Eia BELOW Arterial Blood Gas 12/31/2018 [facility] [place] O2 Device 2 lpm nc PH Arterial 7.50 High 7.35-7.45 Pco2 Arterial 33 mmHg Low 35-45 Po2 Arterial 67 mmHg Low 80-100 O2 Saturation Arterial 96.1 % Normal 94.0-98.0 Base Excess Arterial 2.9 mmol/L High -2.0-2.0 2 Hco3 Arterial 27.1 mmol/L Normal 19-31 CBC Auto Diff 12/31/2018 [facility] [place] White Blood Count 17.6 10^3/uL High 3.5- 10.8 Red Blood Count 3.85 10^6/uL Normal 3.70-4.87 Hemoglobin 12.5 g/dL Normal 12.0-16.0 Hematocrit 37 % Normal 35-47 Mean Corpuscular Volume 97 fL Normal 80-97 Mean Corpuscular Hemoglobin 33 pg High 27-31 Mean Corpuscular HGB Conc 34 g/dL Normal 31-36 Red Cell Distribution Width 13 % Normal 10-15 Platelet Count 447 10^3/uL Normal 150-450 Mean Platelet Volume 7.9 fL Normal 7.4-10.4 Abs Neutrophils 15.0 10^3/uL High 1.5-7.7 Abs Lymphocytes 1.3 10^3/uL Normal 1.0-4.8 Abs Monocytes 1.1 10^3/uL High 0-0.8 Abs Eosinophils 0.2 10^3/uL Normal 0-0.6 Abs Basophils 0.1 10^3/uL Normal 0-0.2 Abs Nucleated RBC 0.0 10^3/uL Granulocyte % 84.8 % Lymphocyte % 7.5 % Monocyte % 6.5 % Eosinophil % 0.9 % Basophil % 0.3 % Nucleated Red Blood Cells % 0.1 Laboratory test finding 12/31/2018 [facility] [place] B-Type Natriuretic Peptide 100 pg/ mL <=100 BNP Lactic Acid 1.4 mmol/L Normal 0.5-2.0 3 Comp Metabolic Panel 12/31/2018 [facility] [place] Sodium 128 mmol/L Low 135-145 Potassium 3.9 mmol/L Normal 3.5-5.0 Chloride 91 mmol/L Low 101-111 Co2 Carbon Dioxide 28 mmol/L Normal 22-32 Anion Gap 9 mmol/L Normal 2-11 Glucose 112 mg/dL High 70-100 Blood Urea Nitrogen 12 mg/dL Normal 6-24 Creatinine 0.79 mg/dL Normal 0.51-0.95 BUN/Creatinine Ratio 15.2 Normal 8-20 Calcium 9.2 mg/dL Normal 8.6-10.3 Total Protein 7.0 g/dL Normal 6.4-8.9 Albumin 3.6 g/dL Normal 3.2-5.2 Globulin 3.4 g/dL Normal 2-4 Albumin/Globulin Ratio 1.1 Normal 1-3 Total Bilirubin 0.50 mg/dL Normal 0.2-1.0 Alkaline Phosphatase 115 U/L High 34-104 Alt 29 U/L Normal 7-52 Ast 47 U/L High 13-39 Egfr Non- 73.5 >60 Egfr 88.9 >60 4 Laboratory test finding 12/31/2018 [facility] [place] C Reactive Protein 172.37 mg/L High <8.01 Troponin I 0.03 ng/mL <0.04 5 Urinalysis Profile 12/31/2018 [facility] [place] Urine Color Straw Urine Appearance Clear Urine Specific [place] 1.006 Low 1.010-1.030 Urine pH 6.0 Normal 5-9 Urine Urobilinogen Negative Negative Urine Ketones Negative Negative Urine Protein Negative Negative Urine Leukocytes Negative Negative Urine Blood 1+ Abnormal Negative Urine Nitrite Negative Negative Urine Bilirubin Negative Negative Urine Glucose Negative Negative Urine White Blood Cell Trace(0-5/hpf) Absent Urine Red Blood Cell Trace(0-2/hpf) Absent Urine Bacteria Absent Absent Laboratory test 12/31/2018 [facility] [place] Blood Culture SEE RESULT 6 finding BELOW Urine Culture And 12/31/2018 [facility] [place] Urine Culture SEE RESULT 7 Sensitivities BELOW CBC Auto Diff 10/19/2018 [facility] [place] White Blood 7.2 10^3/uL Normal 3.5-10.8 Count Red Blood Count 3.71 10^6/uL Normal 3.70-4.87 Hemoglobin 12.2 g/dL Normal 12.0-16.0 Hematocrit 36 % Normal 35-47 Mean Corpuscular Volume 98 fL High 80-97 Mean Corpuscular Hemoglobin 33 pg High 27-31 Mean Corpuscular HGB Conc 34 g/dL Normal 31-36 Red Cell Distribution Width 14 % Normal 10-15 Platelet Count 323 10^3/uL Normal 150-450 Mean Platelet Volume 8.4 fL Normal 7.4-10.4 Abs Neutrophils 4.1 10^3/uL Normal 1.5-7.7 Abs Lymphocytes 2.2 10^3/uL Normal 1.0-4.8 Abs Monocytes 0.7 10^3/uL Normal 0-0.8 Abs Eosinophils 0.2 10^3/uL Normal 0-0.6 Abs Basophils 0.0 10^3/uL Normal 0-0.2 Abs Nucleated RBC 0.0 10^3/uL Granulocyte % 56.7 % Lymphocyte % 30.7 % Monocyte % 9.6 % Eosinophil % 2.3 % Basophil % 0.7 % Nucleated Red Blood Cells % 0.0 Laboratory test 10/19/2018 [facility] [place] B-Type Natriuretic 79 pg/mL <=100 finding Peptide BNP Comp Metabolic Panel 10/19/2018 [facility] [place] Sodium 138 mmol/L Normal 135-145 Potassium 4.2 mmol/L Normal 3.5-5.0 Chloride 103 mmol/L Normal 101-111 Co2 Carbon Dioxide 28 mmol/L Normal 22-32 Anion Gap 7 mmol/L Normal 2-11 Glucose 95 mg/dL Normal 70-100 Blood Urea Nitrogen 12 mg/dL Normal 6-24 Creatinine 0.67 mg/dL Normal 0.51-0.95 BUN/Creatinine Ratio 17.9 Normal 8-20 Calcium 9.9 mg/dL Normal 8.6-10.3 Total Protein 7.0 g/dL Normal 6.4-8.9 Albumin 4.1 g/dL Normal 3.2-5.2 Globulin 2.9 g/dL Normal 2-4 Albumin/Globulin Ratio 1.4 Normal 1-3 Total Bilirubin 0.40 mg/dL Normal 0.2-1.0 Alkaline Phosphatase 88 U/L Normal 34-104 Alt 15 U/L Normal 7-52 Ast 22 U/L Normal 13-39 Egfr Non- 88.9 >60 Egfr 107.6 >60 8 Lipid Profile (Trig/Chol/HDL) 10/19/2018 [facility] [place] Triglycerides 87 mg/dL 9 Cholesterol 182 mg/dL 10 HDL Cholesterol 67.0 mg/dL 11 LDL Cholesterol 98 mg/dL 12 Laboratory test finding 10/19/2018 [facility] [place] Creatine Kinase(CK) 57 U/L Normal 10-223 TSH (Thyroid Stim Horm) 2.18 mcIU/mL Normal 0.34-5.60 Basic Metabolic Panel 07/18/2018 [facility] [place] Sodium 138 mmol/L Normal 135-145 Potassium 4.2 mmol/L Normal 3.5-5.0 Chloride 105 mmol/L Normal 101-111 Co2 Carbon Dioxide 25 mmol/L Normal 22-32 Anion Gap 8 mmol/L Normal 2-11 Glucose 89 mg/dL Normal 70-100 Blood Urea Nitrogen 19 mg/dL Normal 6-24 Creatinine 0.93 mg/dL Normal 0.51-0.95 BUN/Creatinine Ratio 20.4 High 8-20 Calcium 8.9 mg/dL Normal 8.6-10.3 Egfr Non- 60.9 >60 Egfr 73.7 >60 13 Xray 07/14/2018 [facility] Screening, Bilateral; SEE [facility] 2-View Each Breast [phone] 1 SEE RESULT BELOW Name: BARB CONDON : [address]: Karla Suero MD Acct: [id number] Unit: [id number] AGE: 63 Location: ED Re12/31/18 SEX: F Status: REG ER SPEC: [id number] MARCUS: 12/31/18-[address]: Ciara Gavin NP REQ: [id number] RECD: 12/31/18 STATUS: COMP OTHR DR: Ailin Suero MD _ SOURCE: URINE SPDESC: ORDERED: Legion Ur Ag, S.pneumo Ur Ag Procedure Result Reported Site Legionella Urine Antigen Final 12/31/18- 1609 ML Organism 1 Negative Legionella Antigen Antigen testing by enzyme immunoassay Strep. Pneumonia Urine Antigen Final 12/31/18- 1609 ML Organism 1 Negative S. pneumo Antigen Antigen testing by enzyme immunoassay * ML - Main Lab . END OF REPORT DEPARTMENT OF PATHOLOGY, [address] [place] [address] Ever Luis M.D. Director [facility] # [id number] 2 Reference ranges based on room air. 3 [facility] Severe Sepsis and Septic Shock Management Bundle Measure requires all lactic acids initially measuring >2.0 mmol/L be repeated. 4 Because ethnic data is not always readily [...] 15-29 5 Kidney failure <15 (or dialysis) 5 Troponin-I testing on Plasma Separator Tubes (PST) has a known false positive rate of 0.20-0.40%. All positive troponins reflex immediately to secondary confirmatory testing. Using the [employer] DxI 800 Access Immunoassay systems, the 99th percentile upper reference limit was demonstrated to be < 0.03 ng/mL. 6 SEE RESULT BELOW Name: BARB CONDON : [address]: Isidro Johansen MD Acct: [id number] Unit: [id number] AGE: 63 Location: [place] [address] Re12/31/18 Dis: 01/04/19 SEX: F Status: DIS IN SPEC: [id number] MARCUS: 12/31/[address] [facility] [address]: Juan Pablo Adair MD REQ: [id number] RECD: 12/31/18 STATUS: ANGEL SPEARS DR: Ailin Douglas MD [facility] _ SOURCE: BLOOD,VENO SPDESC: ORDERED: Blood Cult Procedure Result Reported Site Aerobic Culture Bottle Final 01/05/19- 1142 ML No Growth Day 5 Anaerobic Culture Bottle Final 01/05/19- 1142 ML No Growth Day 5 * ML - Main Lab . END OF REPORT DEPARTMENT OF PATHOLOGY, [address] [place] [address] Ever Luis M.D. Director [facility] # [id number] 7 SEE RESULT BELOW Name: BARB CONDON : [address]: Keila Hand DO Acct: [id number] Unit: [id number] AGE: 63 Location: [place] [address] Re12/31/18 SEX: F Status: ADM IN SPEC: [id number] MARUCS: 12/31/[address] [facility] [address]: Juan Pablo Adair MD REQ: [id number] RECD: 12/31/18 STATUS: ANGEL SPEARS DR: Ailin Douglas MD [facility] _ SOURCE: URINE SPDESC: ORDERED: Urine Culture Procedure Result Reported Site Urine Culture Final 01/01/19- 1331 ML No Growth (<1,000 CFU/mL) * ML - Main Lab . END OF REPORT DEPARTMENT OF PATHOLOGY, [address] [place] [address] Ever Luis M.D. Director [facility] # [id number] 8 Because ethnic data is not always readily [...] 15-29 5 Kidney failure <15 (or dialysis) 9 Desirable: <150 Borderline High: 150-199 High: 200-499 Very High: >500 10 Desirable: <200 Borderline High: 200-239 High: >239 11 Low: <40 Desirable: 40-60 High: >60 12 Desirable: <100 Near Optimal: 100-129 Borderline [...] 15-29 5 Kidney failure <15 (or dialysis) Procedures Date Code Description Status 01/08/2019 96821 Pulse Oximetry Completed 12/25/2018 63997 Pulse Oximetry Completed 12/25/2018 27810 Nebulizer Treatment Completed 07/14/2018 [id number] Mammogram Completed 06/22/2017 [id number] Mammogram Completed 12/23/2015 12780274 Mammogram Completed 06/02/2015 03809060 Colonoscopy Completed 12/06/2014 [id number] Mammogram Completed 03/28/2013 [id number] Mammogram Completed 12/10/2012 371947096 Bone Mineral Density Test Completed 10/14/2011 39153620 Mammogram Completed 01/16/2010 91058830 Mammogram Completed 04/28/2009 66202651 Mammogram Completed 09/25/2007 80878671 Mammogram Completed 06/15/2006 69032336 Mammogram Completed Medical Devices Description No Information Available Encounters Type Date Location Provider Dx Diagnosis Office Visit 12/25/2018 Main Office Juan Do44.1 Chronic obstructive 11:00a Afnp-C pulmonary disease w (acute) exacerbation G89.4 Chronic pain syndrome F17.218 Nicotine dependence, cigarettes, w oth disorders Office Visit 10/16/2018 12:00p Main Office Hiro Quinones.9 Chronic obstructive M.D. pulmonary disease, unspecified I25.10 Athscl heart disease of [place] coronary artery w/o ang pctrs F33.0 Major depressive disorder, recurrent, mild G89.4 Chronic pain syndrome Office Visit 08/21/2018 9:00a Main Office Celine Cummins G89.4 Chronic pain CHRIS Argueta syndrome R07.9 Chest pain, unspecified Assessments Date Code Description Provider 01/08/2019 J44.1 Chronic obstructive pulmonary disease Celine Argueta NP with (acute) exacerbation 01/08/2019 F17.218 Nicotine dependence, cigarettes, with Celine Argueta NP other nicotine-induced disorders 01/08/2019 I25.10 Atherosclerotic heart disease of [place] Celine Argueta NP coronary artery with 01/08/2019 R55 Syncope and collapse Celine Argueta NP 01/08/2019 I95.9 Hypotension, unspecified Celine Argueta NP 12/25/2018 J44.1 Chronic obstructive pulmonary disease Deborah Do with (acute) exacerbation 12/25/2018 G89.4 Chronic pain syndrome Selena Do-C 12/25/2018 F17.218 Nicotine dependence, cigarettes, with Deborah Do other nicotine-induced disorders 10/16/2018 J44.9 Chronic obstructive pulmonary disease, Ailin Douglas M.D. unspecified 10/16/2018 I25.10 Atherosclerotic heart disease of [place] Ailin Douglas M.D. coronary artery with 10/16/2018 F33.0 Major depressive disorder, recurrent, Ailin Douglas M.D. mild 10/16/2018 G89.4 Chronic pain syndrome Ailin Douglas M.D. 08/21/2018 G89.4 Chronic pain syndrome Celine Argueta NP 08/21/2018 R07.9 Chest pain, unspecified Celine Argueta NP Plan of Treatment Future Appointment(s):03/22/2019 9:00 am - Ailin Douglas M.D. at [id number] - Celine Argueta, NPJ44.1 Chronic obstructive pulmonary disease with (acute) exacerbationComments:will support a temporary hold on breathalyzer in car until lungs have healed up a bitF17.218 Nicotine dependence, cigarettes, with other nicotine-induced disordersComments:patient working on cutting back down to 2 cigarettes/dayI25.10 Atherosclerotic heart disease of [place] coronary artery withComments:continue present medication,will call if there is any increase in the frequency or severity of iehwiwI34 Syncope and awewxbtfP44.9 Hypotension, unspecifiedComments:she is orthostatic in office todayAllComments: Medication Management Patient Understands medications he 's taking? Yes No Are there Barriers to Adherence? Yes No Has the patient been asked about herbal supplements and therapies, andOTC meds? Yes No Care Plan1. Patient has been queried about patient's goals/preferences and functional/lifestyle goals at relevant visits. If relevant, describe: na2. Treatment goals as explained to the patient: above3. Are there barriers to meeting treatment goals? Yes No If Yes, please describe: comorbid conditions, disease process, polypharmacy, smoking4. Self-Management goals as described to the patient: Yes NoAs always, we strongly encourage a healthy diet and making physical activity a part of your every day life. If you have questions about how or where to start, please contact the office. Functional Status Description No Information Available Mental Status Description No Information Available Referrals Refer to Reason for Referral Status Appt Date [facility] nebulizer set up and tubing Sent [place] [address] [phone]
--- OUTSIDE RECORDS SUMMARY | 2019-01-08 15:53 | XMS REPORT | Continuity of Care Document ---
:1955 External Reference #:[id number] Author Name Kathy GonzalezDeborah groev Address [address] [place] [address] Care Team Providers Name Role Phone Luís Gold - Oncology Care Team Information Press Maintainer [phone] Seth Astorga MD - Cardiovascular Care Team Information Press Maintainer Disease Scott Crespo - Pulmonary Disease Care Team Information Press Maintainer [phone] [facility] - Diagnostic Care Team Information Press Maintainer [phone] Radiology Ailin Douglas M.D. - Family Medicine Care Team Information Press Maintainer Unavailable Adriel Platt MD - Ophthalmology Care Team Information Press Maintainer [employer] - Oxygen Equipment & Supplies Care Team Information Press Maintainer Problems Active Problems Provider Date Hyperlipidemia Pako [...] Smoker 1-5 Cigarettes Daily Smoking Status Reviewed: 12/25/18 Current Cigarette Smoker 1-5 Cigarettes Daily ETOH [...] Medications SIG Qnty Indications Ordering Date Provider Note seen in this Kathy 12/25/2018 office today, pt Deborah Mukherjee is unable to breath into her auto nebulizer over the next 1 week d/t illness Ipratropium use bid- three 1box Kathy 12/25/2018 [place]/Albuterol times a day in Deborah Mukherjee Sulfate nebulizer as needed for 0.5-2.5(3)mg/3ML wheezing , sob dx Solution copd J44.9 [facility] Nicotine apply to clean dry 14units Kathy 12/25/2018 Transdermal System area of skin every Deborah Mukherjee morning , remove 14mg/24HR Patches at at bedtime 24HR [facility] Nicotine apply to clean dry 14units Kathy 12/25/2018 Transdermal area of skin qd , Deborah Mukherjee System/Step 3 remove at hs , after completing 7mg/24HR Patches 14 mg 24HR Prednisone 2 by mouth every 12tabs Kathy 12/25/2018 20mg day x 4days, then Yaz, Afnp-C Tablets 1 by mouth every day x 4d, take with food Amoxicillin 1 tab twice a day Unknown 12/22/2018 875mg x 7 days Tablets Ropinirole HCL Take 1 Tablet By 180tabs Adriel Eduardo 06/27/2018 0.5mg Mouth Twice A Day Danyel Norton Tablets Duloxetine HCL Take 1 Capsule By 90caps F33.0 Michael Valentine 04/19/2018 60mg Mouth Every Day Danyel Romero Caps DR Lewis Rosuvastatin Calcium Take 1 Tablet By 90tabs I25.10 Ailin Douglas 2018 Mouth Daily M.D. 20mg Tablets I10 Symbicort use 2 puffs twice 30.6gm J44.1 Ailin [place], 04/19/2013 160-4.5mcg/Act daily M.D. Aerosol Fluoxetine HCL Take 1 Capsule By 270caps F33.0 Adriel Eduardo 11/30/2010 20mg Capsules Mouth Every BreimanLuba.DRomero Morning And 2 Capsules Every Night Aspirin 1 po qd I10 Jt Sewell, 10/14/2009 81mg Chewtabs M.D. Coreg CR 2 by mouth every 90caps I10 Ailin Douglas, 11/29/2007 10mg Caps ER 24HR morning; 1 po qpm M.D. Gabapentin Take 1 Tablet By 270tabs Ailin [place], 600mg Tablets Mouth Every M.D. Morning And 2 Tablets Every Night Multivitamins 1 po qd Unknown Tablets Potassium Chloride ER 1 po qd Unknown 10Meq Capsules ER Ventolin HFA 2 puffs every 4 3units J44.1 Kathyshweta Bargermat-[facility], 108(90Base) hours as needed Afnp-C mcg/Act Aerosol sob Spironolactone 1/2 by mouth every Unknown 25mg Tablets day Vitamin C take one every day Unknown 500mg Tablets Hydrocodone-Acetaminophen 1 by mouth twice a 60tabs G89.4 Kathy Mukherjee , day as needed Afnp-C 5-325mg Tablets neck/shoulder pain, mdd 2 tabs per day dx:719.44, chronic M54.2 Pantoprazole Sodium Take 1 Tablet By 90tabs K21.9 Ailin Douglas M.D. 20mg Mouth Daily Tablets DR Scott take 1 tablet by Unknown 49-51mg Tablets mouth twice a day History Medications Prednisone 1 po qd x 4 Unknown 12/22/2018 - 20mg Tablets days 12/25/2018 Cyclobenzaprine HCL take 1-2 14tabs G89.4 Celine Maria G 08/21/2018 - 5mg tablets by CHRIS Argueta 10/15/2018 Tablets mouth at night as needed for muscle spasm Medications Administered in Office Medication SIG Qnty Indications Ordering Provider Date H1N1 MDCR vaccine any route Jt Sewell M.D. 04/16/2009 Injection Immunizations CPT Code Status Date Vaccine Lot # [id number] Given 01/07/2018 Influenza Vac, Quadrivalent, Slit Virus, Im [id number] 41351 Given 01/03/2017 Influenza Vac, Quadriv[place], [place] [address] Given 04/15/2015 Pneumococcal Immunization [id number] 13686 Given 04/15/2015 Tetanus And Diptheria Adult Preservative Free [id number] >7Yrs 06119 Given 02/01/2015 Influenza Vac, Quadrivalent, Slit Virus, Im [id number] Q2038 Given 02/02/2014 Split Influenza Medicare: Fluzone [id number] Q2038 Given 01/09/2013 Split Influenza Medicare: Fluzone 63845 Given 01/09/2013 DO Not Use Split Influenza Virus Vaccine [id number] 75956 Given 01/08/2010 DO Not Use Split Influenza Virus Vaccine [id number] 90916 Given 04/16/2009 H1N1 Virus Vaccine [id number] 39550 Given 12/23/2008 DO Not Use Split Influenza Virus Vaccine [id number] 65761 Given 06/28/2005 Tdap Tetanus, W Pertussis [id number] 24015 Given 07/30/1999 Lyme Disease Immunization 10776 Given 08/29/1998 Lyme Disease Immunization 84365 Given 07/31/1998 Lyme Disease Immunization Vital Signs Date Vital Result Comment 12/25/2018 11:04am BP Systolic 142 mmHg BP Diastolic 76 mmHg Heart Rate 79 /min Body Temperature 98.5 F Respiratory Rate 20 /min O2 % BldC Oximetry 90 % Height 61.5 inches 5'1.50" Weight 108.00 lb BMI (Body Mass Index) 20.1 kg/m2 10/16/2018 11:58am BP Systolic 116 mmHg BP Diastolic 60 mmHg Heart Rate 66 /min Body Temperature 97.6 F Respiratory Rate 16 /min Height 61.5 inches 5'1.50" Weight 113.00 lb BMI (Body Mass Index) 21.0 kg/m2 Results Test Date Facility Test Result H/L Range Note CBC Auto Diff 10/19/2018 [facility] [place] White Blood Count 7.2 10^3/uL Normal 3.5- 10.8 Red Blood Count 3.71 10^6/uL Normal 3.70-4.87 [...] Blood Cells % 0.0 Laboratory test 10/19/2018 [facility] [place] B-Type Natriuretic 79 pg/mL <=100 finding Peptide BNP Comp Metabolic Panel 10/19/2018 [facility] [place] Sodium 138 mmol/L Normal 135-145 Potassium 4.2 [...] Egfr Non- 88.9 >60 Egfr 107.6 >60 1 Lipid Profile (Trig/Chol/HDL) 10/19/2018 [facility] [place] Triglycerides 87 mg/dL 2 Cholesterol 182 mg/dL 3 HDL Cholesterol 67.0 mg/dL 4 LDL Cholesterol 98 mg/dL 5 Laboratory test finding 10/19/2018 [facility] [place] Creatine Kinase(CK) 57 U/L Normal 10-223 TSH (Thyroid Stim Horm) 2.18 mcIU/mL Normal 0.34-5.60 Basic Metabolic Panel 07/18/2018 [facility] [place] Sodium 138 mmol/L Normal 135-145 Potassium 4.2 mmol/L Normal 3.5-5.0 Chloride 105 mmol/L Normal 101-111 Co2 Carbon Dioxide 25 mmol/L Normal 22-32 Anion Gap 8 mmol/L Normal 2-11 Glucose 89 mg/dL Normal 70-100 Blood Urea Nitrogen 19 mg/dL Normal 6-24 Creatinine 0.93 mg/dL Normal 0.51-0.95 BUN/Creatinine Ratio 20.4 High 8-20 Calcium 8.9 mg/dL Normal 8.6-10.3 Egfr Non- 60.9 >60 Egfr 73.7 >60 6 Xray 07/14/2018 [facility] Screening, Bilateral; SEE ATTACHED [facility] 2-View Each Breast [phone] 1 Because ethnic data is not always [...] 5 Kidney failure <15 (or dialysis) 2 Desirable: <150 Borderline High: 150-199 High: 200-499 Very High: >500 3 Desirable: <200 Borderline High: 200-239 High: >239 4 Low: <40 Desirable: 40-60 High: >60 5 Desirable: <100 Near Optimal: 100-129 Borderline High: 130-159 High: 160-189 Very High: >189 6 Because ethnic data is not always readily [...] (or dialysis) Procedures Date Code Description Status 12/25/2018 25231 Nebulizer Treatment Completed 07/14/2018 [id number] Mammogram Completed 06/22/2017 [id number] Mammogram Completed 12/23/2015 [id number] Mammogram Completed 06/02/2015 [id number] Colonoscopy Completed 12/06/2014 [id number] Mammogram Completed 03/28/2013 [id number] Mammogram Completed 12/10/2012 [id number] Bone Mineral Density Test Completed 10/14/2011 [id number] Mammogram Completed 01/16/2010 [id number] Mammogram Completed 04/28/2009 [id number] Mammogram Completed 09/25/2007 [id number] Mammogram Completed 06/15/2006 [id number] Mammogram Completed Medical Devices Description No Information Available Encounters Type Date Location Provider Dx Diagnosis Office Visit 10/16/2018 Main Office Ailin Douglas M.D. J44.9 Chronic obstructive 12:00p pulmonary disease, unspecified I25.10 Athscl heart disease of [place] coronary artery w/o ang pctrs F33.0 Major depressive disorder, recurrent, mild G89.4 Chronic pain syndrome Office Visit 08/21/2018 9:00a Main Office Celine Cummins G89.4 Chronic pain CHRIS Argueta syndrome R07.9 Chest pain, unspecified Assessments Date Code Description Provider 12/25/2018 J44.1 Chronic obstructive pulmonary disease Deborah Do with (acute) exacerbation 12/25/2018 G89.4 Chronic pain syndrome Deborah Do 12/25/2018 F17.218 Nicotine dependence, cigarettes, with Deborah Do other nicotine-induced disorders 10/16/2018 J44.9 Chronic obstructive pulmonary disease, Ailin Douglas M.D. unspecified 10/16/2018 I25.10 Atherosclerotic heart disease of [place] Ailin Douglas M.D. coronary artery with 10/16/2018 F33.0 Major depressive disorder, recurrent, Ailin Douglas M.D. mild 10/16/2018 G89.4 Chronic pain syndrome Ailin Douglas M.D. 08/21/2018 G89.4 Chronic pain syndrome Celine Argueta NP 08/21/2018 R07.9 Chest pain, unspecified Celine Argueta NP Plan of Treatment Future Appointment(s):03/22/2019 9:00 am - Ailin Douglas M.D. at Main [id number] - Selena Do-CJ44.1 Chronic obstructive pulmonary disease with (acute) iiqqtdyjklxhA77.4 Chronic pain nklpeqkiW92.218 Nicotine dependence , cigarettes, with other nicotine-induced disordersAllNew Medication:Note - seen in this office today, pt is unable to breath into her auto nebulizer over the next 1 week d/t illnessIpratropium [place]/Albuterol Sulfate 0.5-2.5(3) mg/ 3ML - use bid- three times a day in nebulizer asneeded for wheezing , sob dx copd J44.9[facility] Nicotine Transdermal System 14 mg/24HR - apply to clean dry area of skin every morning , remove at at bedtimeCVS Nicotine Transdermal System/ Step 3 7 mg/24HR - apply to clean dry area of skin qd , remove at hs , after completing 14 mgPrednisone 20 mg - 2 by mouth every day x 4days, then 1 by mouth every day x 4d, take with foodComments:Medication Management Patient Understands medications she's taking? Yes No Are there Barriers to Adherence? Yes No Has the patient been asked about herbal supplements and therapies, and OTC meds? Yes No Care Plan1. Patient has been queried about patient's goals/preferences and functional/lifestyle goals at relevant visits. If relevant, describe: na2. Treatment goals as explained to the patient: abovereturn to resp baseline 3. Are there barriers to meeting treatment goals? Yes No If Yes, please describe:continues to smoke 4. Self-Management goals as described to the patient: Yes No will repeat steroid burst , cont amoxtrial nicotine patches refill hydrocodone rx for home nebulizer with albuterol and ipratropium f/u 7-10 days sooner if sx worsen Functional Status Description No Information Available Mental Status Description No Information Available Referrals Refer to Reason for Referral Status [facility]t [facility] [place] [address] [phone]
--- NOTE | 2019-01-08 18:35 | ED ---
Lower Extremity - HPI Summary HPI Summary: This patient is a 63 year old female presenting to [facility] with right lower extremity pain. She was discharged from the hospital 4 days ago for pneumonia and COPD. She states she sometimes has to drag her leg when she walks. She was able to ambulate in the ED and denies numbness and weakness. - History of Current Complaint Chief Complaint: EDExtremityLower Stated Complaint: LOW BLOOD PRESSURE/RT LEG PAIN PER PT Time Seen by Provider: 01/08/19 18:26 Hx Obtained From: Patient Severity Initially: Moderate Severity Currently: Moderate Pain Intensity: 5 Pain Scale Used: 0-10 Numeric - Allergies/Home Medications Allergies/Adverse Reactions: Allergies Allergy/AdvReac Type Severity Reaction Status Date / Time pravastatin Allergy Muscle Ache Verified 12/31/18 11:42 Home Medications: Home Medications Spironolactone TAB* [Aldactone TAB*] 25 mg PO DAILY 01/08/19 [History Confirmed 01/08/19] PMH/Surg Hx/FS Hx/Imm Hx Endocrine/Hematology History: Reports: Hx Anemia Denies: Hx Diabetes, Hx Thyroid Disease Cardiovascular History: Reports: Hx Coronary Artery Disease - STENT RCA, Hx Hypercholesterolemia, Hx Hypertension, Other Cardiovascular Problems/Disorders - STENT PLACEMENT IN 2007 Denies: Hx Angina, Hx Myocardial Infarction, Hx Pacemaker/ICD Respiratory History: Reports: Hx Chronic Obstructive Pulmonary Disease (COPD), Hx Sleep Apnea - CPAP, Other Respiratory Problems/Disorders - COPD Denies: Hx Asthma GI History: Reports: Hx Gastroesophageal Reflux Disease, Other GI Disorders - ON PANTOPRAZOLE - UNKNOWN REASON Denies: Hx Ulcer Musculoskeletal History: Reports: Hx Arthritis - LEFT HAND, Hx Tendonitis - TENDON REPLACEMENT LEFT THUMB AND INDEX FINGER Denies: Hx Rheumatoid Arthritis, Hx Osteoporosis Sensory History: Reports: Hx Contacts or Glasses - GLASSES Denies: Hx Cataracts, Hx Glaucoma, Hx Hearing Aid Opthamlomology History: Reports: Hx Contacts or Glasses - GLASSES Denies: Hx Cataracts, Hx Glaucoma Psychiatric History: Reports: Hx Depression Denies: Hx Panic Disorder - Cancer History Hx Chemotherapy: No Hx Radiation Therapy: No - Surgical History Surgery Procedure, Year, and Place: PARTIAL HYSTERECTOMY- [facility] [place]. 2007 STENT PLACEMENT- [place]. 03/2011 LEFT HAND TENDON REPLACEMENT THUMB AND INDEX FINGER-[facility] [place] Hx Anesthesia Reactions: No Infectious Disease History: No Infectious Disease History: Denies: Hx Clostridium Difficile, Hx Hepatitis, Hx Human Immunodeficiency Virus (HIV), Hx of Known/Suspected MRSA, Hx Shingles, Hx Tuberculosis, Hx Known/ Suspected VRE, Hx Known/Suspected VRSA, History Other Infectious Disease, Traveled Outside the [place] in Last 30 Days - Family History Known Family History: Positive: Hypertension, Diabetes - Social History Alcohol Use: Occasionally Hx Substance Use: No Substance Use Type: Reports: None Hx Tobacco Use: Yes Smoking Status (MU): Light Every Day Tobacco Smoker Type: Cigarettes Amount Used/How Often: 1/2 PPD Length of Time of Smoking/Using Tobacco: 17 YEARS Have You Smoked in the Last Year: Yes Review of Systems Positive: Other - RLE pain Negative: Weakness, Numbness All Other Systems Reviewed And Are Negative: Yes Physical Exam - Summary Physical Exam Summary: VITAL SIGNS: Reviewed. GENERAL: Patient is a well-developed and nourished FEMALE who is lying comfortable in the stretcher. Patient is not in any acute respiratory distress. HEAD AND FACE: No signs of trauma. No ecchymosis, hematomas or skull depressions. No sinus tenderness. EYES: PERRLA, EOMI x 2, No injected conjunctiva, no nystagmus. EARS: Hearing grossly intact. Ear canals and tympanic membranes are within normal limits. MOUTH: Oropharynx within normal limits. NECK: Supple, trachea is midline, no adenopathy, no JVD, no carotid bruit, no c- spine tenderness, neck with full ROM. CHEST: Symmetric, no tenderness at palpation. LUNGS: Clear to auscultation bilaterally. No wheezing or crackles. CVS: Regular rate and rhythm, S1 and S2 present, no murmurs or gallops appreciated. ABDOMEN: Soft, non-tender. No signs of distention. No rebound, no guarding, and no masses palpated. Bowel sounds are normal. EXTREMITIES: FROM in all major joints, no edema, no cyanosis or clubbing. NEURO: Alert and oriented x 3. No acute neurological deficits. Speech is normal and follows commands. SKIN: Dry and warm. Triage Information Reviewed: Yes Vital Signs On Initial Exam: Initial Vitals Temp Pulse Resp BP Pulse Ox 98.3 F 79 18 101/64 94 01/08/19 15:36 01/08/19 15:36 01/08/19 15:36 01/08/19 15:36 01/08/19 15:36 Vital Signs Reviewed: Yes Diagnostics - Vital Signs Vital Signs Temp Pulse Resp BP Pulse Ox 01/08/19 17:53 97.2 F 81 17 111/63 95 01/08/19 15:36 98.3 F 79 18 101/64 94 - Laboratory Lab Statement: Any lab studies that have been ordered have been reviewed, and results considered in the medical decision making process. - Ultrasound No standard instances Ultrasound Interpretation Completed By: Radiologist Summary of Ultrasound Findings: RLE: No sonographic evidence of DVT. ED Provider has reviewed this report. Lower Extremity Course/Dx - Course Assessment/Plan: This patient is a 63 year old female presenting to [facility] with right lower extremity pain. She was discharged from the hospital 4 days ago for pneumonia and COPD. She states she sometimes has to drag her leg when she walks. She was able to ambulate in the ED and denies numbness and weakness. RLE u/s IMPRESSION: No sonographic evidence of deep vein thrombosis. Patient has no other complaints. The patient ambulates to the room but has no deficiency. She will be discharged home with follow-up with PCP. At this point I discussed all the findings and test results with the patient. He was instructed to return to the emergency room immediately if any of the symptoms return or worsen. Patient understand and agree. Neurological exam before discharge: Patient is alert and oriented x 3. No acute neurological deficits. Patient's vital signs are stable. Patient is to follow up with CPP in the next 2 3 days. They understand and agree. Plan of care was discussed with the patient and patient understands and agrees with the plan of care. All questions were answered at patient satisfaction. There were no further complaints or concerns. - Diagnoses Provider Diagnoses: Leg pain Discharge ED - Sign-Out/Discharge Documenting (check all that apply): Patient Departure - Discharge Patient Received Moderate/Deep Sedation with Procedure: No - Discharge Plan Condition: Stable Disposition: HOME Patient Education Materials: Leg Pain (ED) Referrals: Ailin Douglas MD [Primary Care Provider] - Additional Instructions: Return to ED with any new or worsening symptoms. ED Provider has reviewed this report. - Billing Disposition and Condition Condition: STABLE Disposition: Home - Attestation Statements Document Initiated by Scribe: Yes Documenting Scribe: Scott Pyle Provider For Whom Scribe is Documenting (Include Credential): Juan Pablo Adair MD Scribe Attestation: I, Scott Pyle, scribed for Juan Pablo Adair MD on 01/08/19 at 2200. Scribe Documentation Reviewed: Yes Provider Attestation: The documentation as recorded by the scribe, Scott Pyle accurately reflects the service I personally performed and the decisions made by me, Juan Pablo Adair MD Status of Scribe Document: Viewed
[2019-01-08 18:44] VITALS: BP 103/66
== END 2019-01-08 18:50 | disposition home or self-care (01) ==
LOC: ED 15:28
DX: M79.604 Pain in right leg (principal); Z79.899 Other long term (current) drug therapy; I25.10 Atherosclerotic heart disease of native coronary artery without angina pectoris; E78.00 Pure hypercholesterolemia, unspecified; I10 Essential (primary) hypertension; J44.9 Chronic obstructive pulmonary disease, unspecified; K21.9 Gastro-esophageal reflux disease without esophagitis; F17.210 Nicotine dependence, cigarettes, uncomplicated
CPT/HCPCS: 99282

== ENCOUNTER 2019-01-21 10:44 | Emergency (ER) | payer MEDICARE, OTHER ==
--- NOTE | 2019-01-21 13:46 | ED ---
Lower Extremity - HPI Summary HPI Summary: Patient is a 62-year-old female who presents emergency department for right lower leg pain and swelling. Patient was in the hospital about 3 weeks ago for COPD exacerbation. Patient states that she has noted swelling in her lower legs more so on the right. She was seen here 2 weeks ago and had a negative Doppler study of right leg. Patient states swelling has mildly persisted and she fell twice this week and twisted her right ankle. Patient states since she has had worsening pain to her right ankle and difficulty walking. Patient otherwise denies chest pain, shortness of breath, fevers. Symptoms are mild in severity. Walking makes symptoms worse. Rest makes symptoms better. - History of Current Complaint Chief Complaint: EDExtremityLower Stated Complaint: RT FOOT SWOLLEN/IN PAIN PERPT Time Seen by Provider: 01/21/19 13:38 Hx Obtained From: Patient Pain Intensity: 8 - Allergies/Home Medications Allergies/Adverse Reactions: Allergies Allergy/AdvReac Type Severity Reaction Status Date / Time pravastatin Allergy Muscle Ache Verified 01/21/19 10:51 PMH/Surg Hx/FS Hx/Imm Hx Previously Healthy: Yes Endocrine/Hematology History: Reports: Hx Anemia Denies: Hx Diabetes, Hx Thyroid Disease Cardiovascular History: Reports: Hx Coronary Artery Disease - STENT RCA, Hx Hypercholesterolemia, Hx Hypertension, Other Cardiovascular Problems/Disorders - STENT PLACEMENT IN 2007 Denies: Hx Angina, Hx Myocardial Infarction, Hx Pacemaker/ICD Respiratory History: Reports: Hx Chronic Obstructive Pulmonary Disease (COPD), Hx Sleep Apnea - CPAP, Other Respiratory Problems/Disorders - COPD Denies: Hx Asthma GI History: Reports: Hx Gastroesophageal Reflux Disease, Other GI Disorders - ON PANTOPRAZOLE - UNKNOWN REASON Denies: Hx Ulcer Musculoskeletal History: Reports: Hx Arthritis - LEFT HAND, Hx Tendonitis - TENDON REPLACEMENT LEFT THUMB AND INDEX FINGER Denies: Hx Rheumatoid Arthritis, Hx Osteoporosis Sensory History: Reports: Hx Contacts or Glasses - GLASSES Denies: Hx Cataracts, Hx Glaucoma, Hx Hearing Aid Opthamlomology History: Reports: Hx Contacts or Glasses - GLASSES Denies: Hx Cataracts, Hx Glaucoma Psychiatric History: Reports: Hx Depression Denies: Hx Panic Disorder - Cancer History Hx Chemotherapy: No Hx Radiation Therapy: No - Surgical History Surgery Procedure, Year, and Place: PARTIAL HYSTERECTOMY- [facility] [place]. 2007 STENT PLACEMENT- [place]. 03/2011 LEFT HAND TENDON REPLACEMENT THUMB AND INDEX [place] [place] Hx Anesthesia Reactions: No Infectious Disease History: No Infectious Disease History: Denies: Hx Clostridium Difficile, Hx Hepatitis, Hx Human Immunodeficiency Virus (HIV), Hx of Known/Suspected MRSA, Hx Shingles, Hx Tuberculosis, Hx Known/ Suspected VRE, Hx Known/Suspected VRSA, History Other Infectious Disease, Traveled Outside the [place] in Last 30 Days - Family History Known Family History: Positive: Hypertension, Diabetes, Non-Contributory - Social History Occupation: Employed Full-time Lives: With Family Alcohol Use: Occasionally Hx Substance Use: No Substance Use Type: Reports: None Hx Tobacco Use: Yes Smoking Status (MU): Light Every Day Tobacco Smoker Type: Cigarettes Amount Used/How Often: 1/2 PPD Length of Time of Smoking/Using Tobacco: 17 YEARS Have You Smoked in the Last Year: Yes Review of Systems Positive: Other - right ankle pain Positive: Bruising Positive: Paresthesia All Other Systems Reviewed And Are Negative: Yes Physical Exam Triage Information Reviewed: Yes Vital Signs On Initial Exam: Initial Vitals Temp Pulse Resp BP Pulse Ox 97.4 F 70 16 120/77 99 01/21/19 10:47 01/21/19 10:47 01/21/19 10:47 01/21/19 10:47 01/21/19 10:47 Vital Signs Reviewed: Yes Appearance: Positive: Well-Appearing - Pt. lying on bed in NAD. Skin: Positive: Warm, Dry Head/Face: Positive: Normal Head/Face Inspection Eyes: Positive: Normal, EOMI Neck: Positive: Supple Respiratory/Lung Sounds: Positive: Clear to Auscultation, Breath Sounds Present Cardiovascular: Positive: Normal, RRR Musculoskeletal: Positive: Normal, Strength/ROM Intact, Other - Mild diffuse edema and ecchymosis over right lateral ankle. Significant pain over right lateral malleolus with palpation. No calf edema or pain. Difficulty palpating pedal pulse bt able to obtain on doppler. Neurological: Positive: Normal, CN Intact II-III Psychiatric: Positive: Affect/Mood Appropriate Procedures - Sedation Patient Received Moderate/Deep Sedation with Procedure: No - Splinting Right Lower Extremity Hand-Made Type: orthoglass Splint: posterior walking Pre-Proc Neuro Vasc Exam: normal Post-Proc Neuro Vasc Exam: normal Splint Applied by Provider: [facility] - Vital Signs Vital Signs Temp Pulse Resp BP Pulse Ox 01/21/19 12:40 97.4 F 69 17 104/61 98 01/21/19 10:47 97.4 F 70 16 120/77 99 - Laboratory Lab Statement: Any lab studies that have been ordered have been reviewed, and results considered in the medical decision making process. Lower Extremity Course/Dx - Course Course Of Treatment: Patient with worsening right ankle pain after a mechanical fall. X-ray shows questionable old versus new avulsion fracture of the distal fibula, reading per radiology. Patient does have pinpoint tenderness to the area so posterior splint was placed. Patient states she has crutches at home she would like to use. Advised to call orthopedic clinic tomorrow for close follow-up appointment. To ice and elevate. Tylenol for pain as directed. Patient understands and agrees with plan. - Diagnoses Differential Diagnosis/HQI/PQRI: Positive: Contusion, DVT, Fracture (Closed), Sprain, Strain Provider Diagnoses: Ankle fracture Discharge ED - Sign-Out/Discharge Documenting (check all that apply): Patient Departure - Discharge Plan Condition: Good Disposition: HOME Patient Education Materials: Ankle Fracture (ED) Forms: *Work Release Referrals: Ailin Douglas MD [Primary Care Provider] - Marek Santo MD [Medical Doctor] - Additional Instructions: Call the orthopedic clinic tomorrow to schedule a close follow up appointment Ice and elevate Keep splint in place Use crutches Tylenol or Motrin for pain as directed Return to ER if symptoms change or worsen - Billing Disposition and Condition Condition: GOOD Disposition: Home
[2019-01-21 15:10] VITALS: BP 93/59
== END 2019-01-21 15:08 | disposition home or self-care (01) ==
LOC: ED 10:44
DX: S99.911A Unspecified injury of right ankle, initial encounter (principal); W19.XXXA Unspecified fall, initial encounter; X50.1XXA Overexertion from prolonged static or awkward postures, initial encounter; Y92.9 Unspecified place or not applicable; R60.0 Localized edema; I10 Essential (primary) hypertension; Z95.5 Presence of coronary angioplasty implant and graft; J44.9 Chronic obstructive pulmonary disease, unspecified; G47.30 Sleep apnea, unspecified; K21.9 Gastro-esophageal reflux disease without esophagitis; Z88.8 Allergy status to other drugs, medicaments and biological substances; F17.210 Nicotine dependence, cigarettes, uncomplicated
CPT/HCPCS: 99283

== ENCOUNTER 2019-02-07 03:58 | Emergency (ER) | payer MEDICARE, OTHER ==
--- NOTE | 2019-02-07 04:38 | ED ---
Upper Extremity Pain - HPI Summary HPI Summary: 63 year old F brought in by EMS to [facility] complains of right sided pain rated 8/ 10 in severity located in her right upper extremity, right flank, and right breast since Monday 02/05 evening. States she woke up Tuesday 02/06 morning, fell to the floor, crawled into the bathroom, pulled herself up to sink and fell again. States she went to her kitchen where she was barely able to move. No vomiting, abdominal pain, back pain. Had diarrhea x2 Tuesday 02/06 afternoon and today 02/07 morning. States she has never had pain like this before. States she took hydrocodone [employer]. States she has hydrocodone for neck, shoulder, arms from a previous injury. Symptoms aggravated by with movement of right upper extremity. Symptoms alleviated by nothing. Admits to smoking and drinking alcohol rarely. No drugs. - History of Current Complaint Chief Complaint: EDGeneral Stated Complaint: R SIDED PAIN PER EMS Time Seen by Provider: 02/07/19 04:27 Hx Obtained From: Patient Onset/Duration: Started Days Ago, Still Present Timing: Constant Severity Currently: Severe - 8/10 Pain Location: Other: - right upper extremity, right flank, and right breast Aggravating Factor(s): Movement Alleviating Factor(s): Nothing Associated Signs & Symptoms: Positive: Negative - vomiting, abdominal pain, back pa, Other - diarrhea - Allergies/Home Medications Allergies/Adverse Reactions: Allergies Allergy/AdvReac Type Severity Reaction Status Date / Time pravastatin Allergy Muscle Ache Verified 01/21/19 10:51 PMH/Surg Hx/FS Hx/Imm Hx Endocrine/Hematology History: Reports: Hx Anemia Denies: Hx Diabetes, Hx Thyroid Disease Cardiovascular History: Reports: Hx Coronary Artery Disease - STENT RCA, Hx Hypercholesterolemia, Hx Hypertension, Other Cardiovascular Problems/Disorders - STENT PLACEMENT IN 2007 Denies: Hx Angina, Hx Myocardial Infarction, Hx Pacemaker/ICD Respiratory History: Reports: Hx Chronic Obstructive Pulmonary Disease (COPD), Hx Sleep Apnea - CPAP, Other Respiratory Problems/Disorders - COPD Denies: Hx Asthma GI History: Reports: Hx Gastroesophageal Reflux Disease, Other GI Disorders - ON PANTOPRAZOLE - UNKNOWN REASON Denies: Hx Ulcer Musculoskeletal History: Reports: Hx Arthritis - LEFT HAND, Hx Tendonitis - TENDON REPLACEMENT LEFT THUMB AND INDEX FINGER Denies: Hx Rheumatoid Arthritis, Hx Osteoporosis Sensory History: Reports: Hx Contacts or Glasses - GLASSES Denies: Hx Cataracts, Hx Glaucoma, Hx Hearing Aid Opthamlomology History: Reports: Hx Contacts or Glasses - GLASSES Denies: Hx Cataracts, Hx Glaucoma Psychiatric History: Reports: Hx Depression Denies: Hx Panic Disorder - Cancer History Hx Chemotherapy: No Hx Radiation Therapy: No - Surgical History Surgery Procedure, Year, and Place: PARTIAL HYSTERECTOMY- [facility] – [place]. 2007 STENT PLACEMENT- [place]. 03/2011 LEFT HAND TENDON REPLACEMENT THUMB AND INDEX [place]ING[place]-[facility] – [place] Hx Anesthesia Reactions: No Infectious Disease History: No Infectious Disease History: Denies: Hx Clostridium Difficile, Hx Hepatitis, Hx Human Immunodeficiency Virus (HIV), Hx of Known/Suspected MRSA, Hx Shingles, Hx Tuberculosis, Hx Known/ Suspected VRE, Hx Known/Suspected VRSA, History Other Infectious Disease, Traveled Outside the [place] in Last 30 Days - Family History Known Family History: Positive: Hypertension, Diabetes - Social History Alcohol Use: Occasionally Hx Substance Use: No Substance Use Type: Reports: None Hx Tobacco Use: Yes Smoking Status (MU): Light Every Day Tobacco Smoker Type: Cigarettes Amount Used/How Often: 1/2 PPD Length of Time of Smoking/Using Tobacco: 17 YEARS Have You Smoked in the Last Year: Yes Review of Systems Positive: Diarrhea. Negative: Abdominal Pain, Vomiting Positive: flank pain - right Musculoskeletal: Negative - back pain Positive: Other - pain in right upper extremity and right breast All Other Systems Reviewed And Are Negative: Yes Physical Exam - Summary Physical Exam Summary: General: Well-developed, Well-nourished FEMALE. She appears in mild discomfort at rest. HEENT: Normocephalic, Atraumatic. Eyes: Conjuctiva normal, PERRL. Ears: TMs within normal limits. Nares: (-) discharge, (-) erythema. Oropharynx: Clear, mucous membranes moist, (-) exudates. Neck: Soft, FROM, (-) lymphadenopathy, (-) thyromegaly, (-) JVD. Cardiovascular: Normal sinus rhythm, (-) murmur. Lungs: Decreased breath sounds bilaterally, mild wheezing throughout Abdomen: Soft, non-tender, non-distended, (-) organomegaly, normal bowel sounds. Back: Tenderness on right thoracic area Extremities: No edema. Skin: Warm, dry, (-) rash. Neuro: Alert and oriented x3, no focal deficits. Psychiatric: Mood normal, affect normal. Triage Information Reviewed: Yes Vital Signs On Initial Exam: Initial Vitals Temp Pulse Resp BP Pulse Ox 97.2 F 75 16 114/61 96 02/07/19 04:03 02/07/19 04:03 02/07/19 04:03 02/07/19 04:03 02/07/19 04:03 Vital Signs Reviewed: Yes Procedures - Sedation Patient Received Moderate/Deep Sedation with Procedure: No Diagnostics - Vital Signs Vital Signs Temp Pulse Resp BP Pulse Ox 02/07/19 04:03 97.2 F 75 16 114/61 96 - Laboratory Result Diagrams: 02/07/19 05:02 02/07/19 05:02 Lab Statement: Any lab studies that have been ordered have been reviewed, and results considered in the medical decision making process. - EKG 0503 Cardiac Rate: NL - 69 BPM EKG Rhythm: Sinus Rhythm Summary of EKG Findings: EKG at 0503 reveals normal sinus rhythm with rate of 69 BPM, no acute changes, no ischemic changes. This EKG was reviewed and interpreted by Dr. Suero. Course/Dx - Course Course Of Treatment: 63-year-old female with right chest wall pain. Sharp. Sudden onset. Given Toradol. Labs and CT head pending. Signed out change shift. - Diagnoses Provider Diagnoses: Tobacco use, Right-sided chest pain Discharge ED - Sign-Out/Discharge Documenting (check all that apply): Sign-Out Patient Signing out patient TO: Mariely Leigh - awaiting CTA Chest and pending disposition - Discharge Plan Referrals: Ailin Douglas MD [Primary Care Provider] - - Attestation Statements Document Initiated by Scribe: Yes Documenting Scribe: Uyen Garcia Provider For Whom Reid is Documenting (Include Credential): Karla Suero MD Scribe Attestation: I, Uyen Garcia, scribed for Karla Suero MD on 02/07/19 at 0658. Scribe Documentation Reviewed: Yes Provider Attestation: The documentation as recorded by the scribe, Uyen Garcia accurately reflects the service I personally performed and the decisions made by me, Karla Suero MD Status of Scribe Document: Viewed
[2019-02-07] MEDS ORDERED: NS 0.9% 1000 ML** 1,000 ML IV ONE (04:43)
[2019-02-07] MEDS ORDERED: Albuterol/Ipratropium NEB.SOL* Albuterol 2.5 MG/Ipratropium 0.5 MG 3 ML INH ONE (04:46)
[2019-02-07 05:12] LABS: ABS Basophils 0.1 10^3/ul (0-0.2); ABS Eosinophils 0.1 10^3/ul (0-0.6); ABS Lymphocytes 1.6 10^3/ul (1.0-4.8); ABS Monocytes 1.1 10^3/ul (0-0.8); ABS Neutrophils 7.7 10^3/ul (1.5-7.7); Eosinophil % 0.6 %; Hematocrit 35 % (35-47); Hemoglobin 11.9 g/dL (12.0-16.0); Lymphocyte % 15.5 %; Mean Corpuscular HGB Conc 34 g/dL (31-36); Mean Corpuscular Hemoglobin 33 pg (27-31); Mean Corpuscular Volume 95 fL (80-97); Mean Platelet Volume 7.7 fL (7.4-10.4); Platelet Count 286 10^3/uL (150-450); Red Blood Count 3.65 10^6 /uL (3.70-4.87); Red Cell Distribution Width 14 % (10-15); White Blood Count 10.5 10^3/uL (3.5-10.8)
[2019-02-07 05:31] LABS: INR 1.03 (0.82-1.09)
[2019-02-07] MEDS ORDERED: Ketorolac INJ* 30 MG/ML 1 ML VIAL IV ONE (05:33)
[2019-02-07 05:34] LABS: Albumin 3.8 g/dL (3.2-5.2); Albumin/Globulin Ratio 1.3 (1-3); BUN/Creatinine Ratio 13.6 (8-20); Calcium 9.2 mg/dL (8.6-10.3); EGFR African American 86.4 (>60); EGFR Non-African American 71.4 (>60); Globulin 2.9 g/dL (2-4); Total Bilirubin 0.5 mg/dL (0.2-1.0); Total Protein 6.7 g/dL (6.4-8.9)
[2019-02-07] MEDS ORDERED: Iohexol 350* (CONTRAST) 500 ML MDV IV ONE (06:12)
--- NOTE | 2019-02-07 07:09 | ED ---
Progress - Progress Note Progress Note: Patient is a sign out at 07:00 on 02/07/[address] Karla Suero MD to Dr. Mariely Leigh MD at shift change, pending imaging results. Course/Dx - Course Course Of Treatment: 63-year-old female with right chest wall pain. Sharp. Sudden onset. Given Toradol. Labs and CT head pending. Signed out change shift. - Diagnoses Provider Diagnoses: Tobacco use, Right-sided chest pain Discharge ED - Sign-Out/Discharge Documenting (check all that apply): Receiving Sign-Out Receiving patient FROM: Karla Suero - 07:00 on 02/07/19 - Discharge Plan Referrals: Ailin Douglas MD [Primary Care Provider] - - Attestation Statements Document Initiated by Scribe: Yes Documenting Scribe: Nissa Munoz Provider For Whom Scribe is Documenting (Include Credential): Mariely Leigh MD Scribe Attestation: Nissa Zaidi, scribed for Mariely Leigh MD on 02/07/19 at 0709.
[2019-02-07 07:20] VITALS: BP 118/65
== END 2019-02-07 07:18 | disposition home or self-care (01) ==
LOC: ED 03:58
DX: R07.9 Chest pain, unspecified (principal); D64.9 Anemia, unspecified; I25.10 Atherosclerotic heart disease of native coronary artery without angina pectoris; E78.00 Pure hypercholesterolemia, unspecified; I10 Essential (primary) hypertension; J44.9 Chronic obstructive pulmonary disease, unspecified; K21.9 Gastro-esophageal reflux disease without esophagitis; F17.210 Nicotine dependence, cigarettes, uncomplicated; Z95.5 Presence of coronary angioplasty implant and graft; Z90.711 Acquired absence of uterus with remaining cervical stump; Z88.8 Allergy status to other drugs, medicaments and biological substances
CPT/HCPCS: 36415; 71275; 80053; 83605; 83880; 84484; 85025; 85610; 87040; 93005; 96361; 96374; 99283; A9270-GY; J1885; Q9967

== ENCOUNTER 2019-11-05 11:59 | Observation (INO) ==
[2019-11-05] MEDS ORDERED: Lidocaine 1% VIAL 10 MG/ML VIAL ONE (12:59)
[2019-11-05] MEDS ORDERED: fentaNYL 100 mcg/2 ml 50 MCG/ML VIAL ONE (12:59)
[2019-11-05] MEDS ORDERED: Midazolam 5 mg/5 ml VIAL 1 mg/ml 5 ml VIAL (5 mg) ONE (12:59)
[2019-11-05] MEDS ORDERED: ceFAZolin 1 GM/10 ML flush SYRINGE for pocket flush (cardiology) FLUSH ONE (13:00)
[2019-11-05] MEDS ORDERED: ceFAZolin 2 GM PREMIX 2 GM/50 ML BAG IVPB ONE (13:00)
[2019-11-05] MEDS ORDERED: Albuterol HFA INHALER 8 gm MDI INH PRN (16:24)
[2019-11-05] MEDS: oxyCODONE/Acetamin 5/325 mg TAB PO PRN (19:30)
[2019-11-05] MEDS: Mometasone/Formoter 200/5 MDI INH SCH (19:30)
[2019-11-05] MEDS: VALSARTAN PO SCH (19:38)
[2019-11-05] MEDS: SACUBITRIL PO SCH (19:38)
[2019-11-05] MEDS: ceFAZolin VIAL 1 GM in NS 0.9% 50 ML 50 ML IVPB SCH (21:29)
[2019-11-06] MEDS: ceFAZolin VIAL 1 GM in NS 0.9% 50 ML 50 ML IVPB SCH (05:33)
[2019-11-06] MEDS: oxyCODONE/Acetamin 5/325 mg TAB PO PRN (05:35)
[2019-11-06 08:03] VITALS: BP 120/71
[2019-11-06] MEDS ORDERED: CMCS: Rosuvastatin 10 mg TAB (NF) PO SCH (09:00)
[2019-11-06] MEDS ORDERED: Aspirin EC 81 mg TAB.EC (enteric coated) PO SCH (09:00)
[2019-11-06] MEDS ORDERED: DULoxetine DR 60 mg CAP PO SCH (09:00)
[2019-11-06] MEDS ORDERED: Pantoprazole 20 mg TAB (NF) PO SCH (09:00)
[2019-11-06] MEDS: SACUBITRIL PO SCH (09:35)
[2019-11-06] MEDS: VALSARTAN PO SCH (09:35)
[2019-11-06] MEDS: Mometasone/Formoter 200/5 MDI INH SCH (09:45)
== END 2019-11-06 10:40 | disposition home or self-care (01) ==
LOC: CHICATH 11:59 → MEDTELE 11:59
PROVIDERS: ADMIT Specialist; ATTEND Specialist

== ENCOUNTER 2020-02-20 08:25 | Inpatient (IN) ==
[2020-02-20] MEDS ORDERED: Albuterol HFA INHALER 8 gm MDI INH ONE (08:43)
[2020-02-20] MEDS ORDERED: methylPREDNISolone 125 mg 2 ML VIAL IV ONE (08:43)
[2020-02-20 09:59] LABS: ABS Eosinophils 0.1 10^3/ul (0-0.6); ABS Lymphocytes 1.3 10^3/ul (1.0-4.8); ABS Neutrophils 12.3 10^3/ul (1.5-7.7); Eosinophil % 0.8 %; Hematocrit 35 % (35-47); Hemoglobin 11.6 g/dL (12.0-16.0); Lymphocyte % 9.2 %; Mean Corpuscular HGB Conc 34 g/dL (31-36); Mean Corpuscular Hemoglobin 33 pg (27-31); Mean Corpuscular Volume 97 fL (80-97); Mean Platelet Volume 8.1 fL (7.4-10.4); Platelet Count 363 10^3/uL (150-450); Red Blood Count 3.54 10^6 /uL (3.70-4.87); Red Cell Distribution Width 14 % (10-15); White Blood Count 14.7 10^3/uL (3.5-10.8)
[2020-02-20 10:11] LABS: Albumin 3.4 g/dL (3.2-5.2); Albumin/Globulin Ratio 0.9 (1-3); C Reactive Protein 245.24 mg/L (<8.01); Calcium 9.2 mg/dL (8.6-10.3); EGFR African American 95.6 (>60); Globulin 3.8 g/dL (2-4); Potassium 4.4 mmol/L (3.5-5.0); Total Bilirubin 0.5 mg/dL (0.2-1.0); Total Protein 7.2 g/dL (6.4-8.9); Troponin I 0.01 ng/mL (<0.03)
[2020-02-20 10:21] LABS: Influenza A Molecular Negative (Negative); Influenza B Molecular Negative (Negative)
[2020-02-20 12:04] LABS: Magnesium 1.7 mg/dL (1.9-2.7)
[2020-02-20] MEDS ORDERED: Azithromycin 500 mg/250 ml NS 500 MG/250 ML BAG IVPB SCH (13:00)
[2020-02-20] MEDS ORDERED: Magnesium Sulfate 2 gm BAG 2 GM/50 ML BAG IVPB ONE (13:28)
[2020-02-20] MEDS ORDERED: Albuterol HFA INHALER 8 gm MDI INH PRN (13:48)
[2020-02-20] MEDS: SPIRIVA Respimat (tiotropium) 2.5 mcg/inh Inhaler INH SCH (14:17)
[2020-02-20] MEDS: Albuterol HFA INHALER 8 gm MDI INH SCH ×3 (14:45→20:41)
[2020-02-20] MEDS: cefTRIAXone 1 gm/50 mL NS BAG 1 GM/50 ML BAG IVPB SCH (16:28)
[2020-02-20] MEDS: Heparin 5000 UNITS/ML 1 mL VIAL SUBCUT SCH ×2 (16:28→21:26)
[2020-02-20] MEDS ORDERED: guaiFENesin 100 mg/5 ml LIQ unit dose cup PO PRN (16:51)
[2020-02-20] MEDS: Mometasone/Formoter 200/5 MDI INH SCH (20:44)
[2020-02-20] MEDS: Fluticasone NASAL SPRAY 50MCG 16 gm SPRAY BTL INTRANASAL SCH (21:26)
[2020-02-21] MEDS: Albuterol HFA INHALER 8 gm MDI INH SCH ×5 (02:12→19:38)
[2020-02-21] MEDS: Heparin 5000 UNITS/ML 1 mL VIAL SUBCUT SCH (05:05)
[2020-02-21 06:07] LABS: ABS Lymphocytes 1.2 10^3/ul (1.0-4.8); ABS Neutrophils 10.5 10^3/ul (1.5-7.7); Hematocrit 33 % (35-47); Hemoglobin 11.2 g/dL (12.0-16.0); Lymphocyte % 9.2 %; Mean Corpuscular HGB Conc 34 g/dL (31-36); Mean Corpuscular Hemoglobin 33 pg (27-31); Mean Corpuscular Volume 97 fL (80-97); Mean Platelet Volume 7.9 fL (7.4-10.4); Platelet Count 422 10^3/uL (150-450); Red Blood Count 3.38 10^6 /uL (3.70-4.87); Red Cell Distribution Width 14 % (10-15); White Blood Count 12.7 10^3/uL (3.5-10.8)
[2020-02-21 06:21] LABS: Calcium 8.8 mg/dL (8.6-10.3); EGFR African American 100.3 (>60); EGFR Non-African American 82.9 (>60); Potassium 4.1 mmol/L (3.5-5.0)
[2020-02-21] MEDS: Mometasone/Formoter 200/5 MDI INH SCH ×2 (07:58→19:38)
[2020-02-21] MEDS: SPIRIVA Respimat (tiotropium) 2.5 mcg/inh Inhaler INH SCH (07:58)
[2020-02-21] MEDS: Aspirin EC 81 mg TAB.EC (enteric coated) PO SCH (08:55)
[2020-02-21] MEDS: Cholecalciferol (VIT D3) 1,000 unit TAB PO SCH (08:55)
[2020-02-21] MEDS: DULoxetine DR 60 mg CAP PO SCH (08:55)
[2020-02-21] MEDS: CMCS:Rosuvastatin 10 mg TAB (NF) PO SCH (08:56)
[2020-02-21] MEDS: Fluticasone NASAL SPRAY 50MCG 16 gm SPRAY BTL INTRANASAL SCH ×2 (08:57→23:39)
[2020-02-21 10:52] LABS: Urine Appearance Cloudy; Urine Bilirubin Negative (Negative); Urine Blood 1+ (Negative); Urine Color Yellow; Urine Glucose Negative (Negative); Urine Ketones Negative (Negative); Urine Nitrite Negative (Negative); Urine Protein 1+(30 mg/dL) (Negative); Urine Specific Gravity 1.023 (1.010-1.030); Urine Urobilinogen Negative (Negative)
[2020-02-21 11:17] LABS: Urine Bacteria Absent (Absent); Urine Red Blood Cell Trace(0-2/hpf) (Absent); Urine Squamous Epithelial Cell Present (Absent); Urine White Blood Cell Absent (Absent)
[2020-02-21] MEDS ORDERED: Enoxaparin 40 MG/0.4 ML SYR SUBCUT SCH (12:00)
[2020-02-21] MEDS: cefTRIAXone 1 gm/50 mL NS BAG 1 GM/50 ML BAG IVPB SCH (15:27)
[2020-02-22] MEDS: Albuterol HFA INHALER 8 gm MDI INH SCH ×2 (01:11→07:54)
[2020-02-22 05:26] LABS: ABS Lymphocytes 2.1 10^3/ul (1.0-4.8); ABS Monocytes 1.3 10^3/ul (0-0.8); ABS Neutrophils 11.4 10^3/ul (1.5-7.7); Eosinophil % 0.1 %; Hematocrit 33 % (35-47); Hemoglobin 11.3 g/dL (12.0-16.0); Mean Corpuscular HGB Conc 34 g/dL (31-36); Mean Corpuscular Hemoglobin 33 pg (27-31); Mean Corpuscular Volume 96 fL (80-97); Mean Platelet Volume 7.7 fL (7.4-10.4); Platelet Count 465 10^3/uL (150-450); Red Blood Count 3.45 10^6 /uL (3.70-4.87); Red Cell Distribution Width 14 % (10-15); White Blood Count 14.9 10^3/uL (3.5-10.8)
[2020-02-22 05:57] LABS: BUN/Creatinine Ratio 24.6 (8-20); Calcium 8.9 mg/dL (8.6-10.3); EGFR Non-African American 91.8 (>60); Potassium 4.2 mmol/L (3.5-5.0)
[2020-02-22 07:45] VITALS: BP 108/69
[2020-02-22] MEDS: SPIRIVA Respimat (tiotropium) 2.5 mcg/inh Inhaler INH SCH (07:54)
[2020-02-22] MEDS: Mometasone/Formoter 200/5 MDI INH SCH (07:54)
[2020-02-22] MEDS ORDERED: Influenza VAC *QUAD* 2020-21* 0.5 ML SYRINGE IM ONE (09:00)
[2020-02-22] MEDS: DULoxetine DR 60 mg CAP PO SCH (10:28)
[2020-02-22] MEDS: Fluticasone NASAL SPRAY 50MCG 16 gm SPRAY BTL INTRANASAL SCH (10:29)
[2020-02-22] MEDS: Aspirin EC 81 mg TAB.EC (enteric coated) PO SCH (10:29)
[2020-02-22] MEDS: CMCS:Rosuvastatin 10 mg TAB (NF) PO SCH (10:29)
[2020-02-22] MEDS: Cholecalciferol (VIT D3) 1,000 unit TAB PO SCH (10:29)
== END 2020-02-22 11:30 | disposition home or self-care (01) | DRG 190 ==
LOC: ED 08:25 → MED 11:31
PROVIDERS: ADMIT Internal Medicine; ATTEND Internal Medicine

== ENCOUNTER 2020-07-05 00:44 | Inpatient (IN) ==
[2020-07-05] MEDS ORDERED: NS 0.9% 1000 ml BAG 1,000 ML IV ONE (00:52)
[2020-07-05 01:03] LABS: Hematocrit 33 % (35-47); Hemoglobin 11.2 g/dL (12.0-16.0); Mean Corpuscular HGB Conc 34 g/dL (31-36); Mean Corpuscular Hemoglobin 35 pg (27-31); Mean Corpuscular Volume 103 fL (80-97); Mean Platelet Volume 7.6 fL (7.4-10.4); Platelet Count 196 10^3/uL (150-450); Red Blood Count 3.23 10^6 /uL (3.70-4.87); Red Cell Distribution Width 16 % (10-15)
[2020-07-05 01:40] LABS: ALT 24 U/L (7-52); Albumin 3.3 g/dL (3.2-5.2); Albumin/Globulin Ratio 0.9 (1-3); Alkaline Phosphatase 295 U/L (34-104); Anion Gap 7 mmol/L (2-11); BUN/Creatinine Ratio 10.9 (8-20); Blood Urea Nitrogen 7 mg/dL (6-24); CO2 Carbon Dioxide 27 mmol/L (22-32); Chloride 101 mmol/L (101-111); EGFR African American 112.7 (>60); EGFR Non-African American 93.1 (>60); Globulin 3.7 g/dL (2-4); Glucose 118 mg/dL (70-100); Sodium 135 mmol/L (135-145)
[2020-07-05 01:54] LABS: ABS Basophils 0.2 10^3/ul (0-0.2); ABS Lymphocytes 1.7 10^3/ul (1.0-4.8); ABS Neutrophils 4.1 10^3/ul (1.5-7.7); Eosinophil % 0.5 %; Lymphocyte % 23.9 %; Nucleated Red Blood Cells % 0.1
[2020-07-05 03:32] LABS: Urine Appearance Clear; Urine Bilirubin Negative (Negative); Urine Blood 1+ (Negative); Urine Color Straw; Urine Glucose Negative (Negative); Urine Ketones Negative (Negative); Urine Nitrite Negative (Negative); Urine Protein Negative (Negative); Urine Specific Gravity 1.004 (1.010-1.030); Urine Urobilinogen Negative (Negative)
[2020-07-05] MEDS ORDERED: Iohexol 300 (CONTRAST) 10 ML SDV IV ONE (03:43)
[2020-07-05 03:45] LABS: Urine Bacteria Absent (Absent); Urine Red Blood Cell Absent (Absent); Urine White Blood Cell Absent (Absent)
[2020-07-05] MEDS ORDERED: Thiamine 100 MG/ML 2 ml VIAL 100 MG, Folic Acid IV 1 MG, Multiple Vitamin IV ADULT 10 M... IV ONE (06:10)
[2020-07-05] MEDS ORDERED: Albuterol 2.5mg/3 ml (0.083%) NEB.SOLN INH PRN (06:10)
[2020-07-05] MEDS ORDERED: NS 0.9% 1000 ml BAG 1,000 ML IV SCH (06:30)
[2020-07-05 07:02] LABS: Lipase 375 U/L (11.0-82.0)
[2020-07-05] MEDS ORDERED: Albuterol HFA INHALER 8 gm MDI INH PRN (09:42)
[2020-07-05 09:46] LABS: ABS Basophils 0.1 10^3/ul (0-0.2); ABS Lymphocytes 1.1 10^3/ul (1.0-4.8); ABS Monocytes 0.9 10^3/ul (0-0.8); ABS Neutrophils 5.4 10^3/ul (1.5-7.7); Eosinophil % 0.4 %; Hematocrit 31 % (35-47); Hemoglobin 10.5 g/dL (12.0-16.0); Lymphocyte % 14.8 %; Mean Corpuscular HGB Conc 34 g/dL (31-36); Mean Corpuscular Hemoglobin 35 pg (27-31); Mean Corpuscular Volume 102 fL (80-97); Mean Platelet Volume 7.6 fL (7.4-10.4); Nucleated Red Blood Cells % 0.1; Platelet Count 224 10^3/uL (150-450); Red Blood Count 3.05 10^6 /uL (3.70-4.87); Red Cell Distribution Width 16 % (10-15); White Blood Count 7.5 10^3/uL (3.5-10.8)
[2020-07-05 10:03] LABS: Activated Partial Thrombo Time 24.4 seconds (26.0-38.0); Albumin/Globulin Ratio 0.9 (1-3); BUN/Creatinine Ratio 11.3 (8-20); EGFR African American 116.9 (>60); EGFR Non-African American 96.6 (>60); Globulin 3.2 g/dL (2-4); INR 1.13 (0.82-1.09); Magnesium 1.9 mg/dL (1.9-2.7); Potassium 4.1 mmol/L (3.5-5.0); Total Bilirubin 0.3 mg/dL (0.2-1.0); Total Protein 6.2 g/dL (6.4-8.9)
[2020-07-05] MEDS: Aspirin EC 81 mg TAB.EC (enteric coated) PO SCH (10:38)
[2020-07-05] MEDS: DULoxetine DR 60 mg CAP PO SCH (10:41)
[2020-07-05] MEDS: Multivitamins/Minerals TAB PO SCH (10:41)
[2020-07-05] MEDS ORDERED: fentaNYL 100 mcg/2 ml 50 MCG/ML VIAL ONE (11:13)
[2020-07-05] MEDS ORDERED: Midazolam 10 mg/10 ml VIAL 1 mg/ml 10 ml VIAL (10 mg) ONE (11:13)
[2020-07-05] MEDS ORDERED: BUDESONIDE 3 MG PO ONE (13:30)
[2020-07-05 13:55] LABS: C Reactive Protein 2.68 mg/L (<8.01)
[2020-07-05] MEDS: Heparin 5000 UNITS/ML 1 mL VIAL SUBCUT SCH ×2 (14:45→21:28)
[2020-07-05] MEDS: Mometasone/Formoter 200/5 MDI INH SCH (20:35)
[2020-07-06 05:32] LABS: ABS Lymphocytes 1.3 10^3/ul (1.0-4.8); ABS Monocytes 0.7 10^3/ul (0-0.8); ABS Neutrophils 2.9 10^3/ul (1.5-7.7); Eosinophil % 0.3 %; Hematocrit 27 % (35-47); Hemoglobin 9.1 g/dL (12.0-16.0); Lymphocyte % 27.2 %; Mean Corpuscular HGB Conc 34 g/dL (31-36); Mean Corpuscular Hemoglobin 34 pg (27-31); Mean Corpuscular Volume 102 fL (80-97); Mean Platelet Volume 7.5 fL (7.4-10.4); Nucleated Red Blood Cells % 0.1; Platelet Count 163 10^3/uL (150-450); Red Blood Count 2.64 10^6 /uL (3.70-4.87); Red Cell Distribution Width 16 % (10-15); White Blood Count 4.9 10^3/uL (3.5-10.8)
[2020-07-06 05:47] LABS: BUN/Creatinine Ratio 12.9 (8-20); Calcium 7.9 mg/dL (8.6-10.3); EGFR African American 116.9 (>60); EGFR Non-African American 96.6 (>60); Potassium 3.8 mmol/L (3.5-5.0)
[2020-07-06] MEDS: Heparin 5000 UNITS/ML 1 mL VIAL SUBCUT SCH ×3 (06:23→21:31)
[2020-07-06] MEDS: Mometasone/Formoter 200/5 MDI INH SCH ×2 (07:32→19:29)
[2020-07-06] MEDS: Multivitamins/Minerals TAB PO SCH (09:12)
[2020-07-06] MEDS: Aspirin EC 81 mg TAB.EC (enteric coated) PO SCH (09:12)
[2020-07-06] MEDS: DULoxetine DR 60 mg CAP PO SCH (09:13)
[2020-07-06] MEDS: CMCS:Budesonide 3 mg CAP (NF) PO SCH (09:14)
[2020-07-06 12:01] LABS: Magnesium 1.6 mg/dL (1.9-2.7)
[2020-07-06] MEDS ORDERED: Magnesium Sulfate 2 gm BAG 2 GM/50 ML BAG IVPB ONE (15:18)
[2020-07-07 05:33] LABS: ABS Lymphocytes 1.5 10^3/ul (1.0-4.8); ABS Monocytes 0.6 10^3/ul (0-0.8); ABS Neutrophils 3.8 10^3/ul (1.5-7.7); Eosinophil % 0.6 %; Hematocrit 30 % (35-47); Lymphocyte % 24.8 %; Mean Corpuscular HGB Conc 33 g/dL (31-36); Mean Corpuscular Hemoglobin 34 pg (27-31); Mean Corpuscular Volume 102 fL (80-97); Mean Platelet Volume 8.1 fL (7.4-10.4); Nucleated Red Blood Cells % 0.1; Platelet Count 196 10^3/uL (150-450); Red Blood Count 2.95 10^6 /uL (3.70-4.87); Red Cell Distribution Width 16 % (10-15)
[2020-07-07 05:48] LABS: BUN/Creatinine Ratio 12.9 (8-20); Calcium 8.5 mg/dL (8.6-10.3); EGFR African American 116.9 (>60); EGFR Non-African American 96.6 (>60); Magnesium 2.1 mg/dL (1.9-2.7); Potassium 3.8 mmol/L (3.5-5.0)
[2020-07-07] MEDS: Heparin 5000 UNITS/ML 1 mL VIAL SUBCUT SCH ×2 (06:03→13:15)
[2020-07-07] MEDS: Mometasone/Formoter 200/5 MDI INH SCH (07:46)
[2020-07-07] MEDS: DULoxetine DR 60 mg CAP PO SCH (08:23)
[2020-07-07] MEDS: CMCS:Budesonide 3 mg CAP (NF) PO SCH (08:23)
[2020-07-07] MEDS: Aspirin EC 81 mg TAB.EC (enteric coated) PO SCH (08:24)
[2020-07-07] MEDS: Multivitamins/Minerals TAB PO SCH (08:25)
[2020-07-07 09:53] LABS: Folate 12.06 ng/mL (>3.99)
[2020-07-07 14:47] VITALS: BP 136/72
[2020-07-09 12:26] LABS: Tissue Transglutaminase IgA Ab <1.2 U/mL; Tissue Transglutaminase IgG Ab 1.3 U/mL
== END 2020-07-07 15:00 | disposition home or self-care (01) | DRG 392 ==
LOC: MED 00:44 → ED 00:44 → MED 09:39
PROVIDERS: ADMIT Student in an Organized Health Care Education/Training Program; ATTEND Hospitalist

== ENCOUNTER 2020-08-13 16:27 | Inpatient (IN) ==
[2020-08-13] MEDS ORDERED: NS 0.9% 1000 ml BAG 1,000 ML IV ONE (16:37)
[2020-08-13] MEDS ORDERED: Al Hydrox/Mg Hydrox/Simet LIQ 30 ML UDC PO ONE (16:37)
[2020-08-13 16:49] LABS: ABS Basophils 0.1 10^3/ul (0-0.2); ABS Lymphocytes 1.1 10^3/ul (1.0-4.8); ABS Monocytes 0.6 10^3/ul (0-0.8); ABS Neutrophils 8.8 10^3/ul (1.5-7.7); Eosinophil % 0.1 %; Hematocrit 34 % (35-47); Hemoglobin 11.9 g/dL (12.0-16.0); Lymphocyte % 10.8 %; Mean Corpuscular HGB Conc 35 g/dL (31-36); Mean Corpuscular Hemoglobin 34 pg (27-31); Mean Corpuscular Volume 98 fL (80-97); Mean Platelet Volume 7.6 fL (7.4-10.4); Nucleated Red Blood Cells % 0.1; Platelet Count 273 10^3/uL (150-450); Red Blood Count 3.47 10^6 /uL (3.70-4.87); Red Cell Distribution Width 15 % (10-15); White Blood Count 10.7 10^3/uL (3.5-10.8)
[2020-08-13 16:57] LABS: Activated Partial Thrombo Time 20.4 seconds (26.0-38.0); INR 1.1 (0.82-1.09)
[2020-08-13 17:07] LABS: Albumin 3.1 g/dL (3.2-5.2); C Reactive Protein 1.32 mg/L (<8.01); Calcium 7.8 mg/dL (8.6-10.3); EGFR African American 123.8 (>60); EGFR Non-African American 102.3 (>60); Globulin 3.1 g/dL (2-4); Magnesium 1.8 mg/dL (1.9-2.7); Potassium 3.8 mmol/L (3.5-5.0); Total Bilirubin 0.4 mg/dL (0.2-1.0); Total Protein 6.2 g/dL (6.4-8.9)
[2020-08-13] MEDS ORDERED: Iohexol 300 (CONTRAST) 10 ML SDV IV ONE (17:26)
[2020-08-13] MEDS ORDERED: Morphine 4 MG/ML VIAL (1 ml) IV ONE (18:17)
[2020-08-13] MEDS ORDERED: Ondansetron 4 mg VIAL 2 MG/ML 2 ml VIAL IV PRN (19:47)
[2020-08-13] MEDS ORDERED: Thiamine 100 MG/ML 2 ml VIAL (200 mg) IM ONE (19:53)
[2020-08-13] MEDS ORDERED: Magnesium Sulfate IV 3 GM in NS 0.9% 100 ml BAG 100 ML IVPB ONE (19:59)
[2020-08-13] MEDS ORDERED: Lorazepam PYXIS KEY PRN (20:09)
[2020-08-13] MEDS ORDERED: Senna TAB 8.6 mg TAB PO PRN (20:17)
[2020-08-13] MEDS: Mometasone/Formoter 200/5 MDI INH SCH (20:50)
[2020-08-13] MEDS ORDERED: CARVEDILOL 10 MG PO SCH (21:00)
[2020-08-13] MEDS: Nicotine PATCH 21 MG/24 HR PATCH TRANSDERM SCH (21:31)
[2020-08-13] MEDS: Enoxaparin 40 MG/0.4 ML SYR SUBCUT SCH (21:31)
[2020-08-13] MEDS: Lactated Ringers 1000 ml BAG 1,000 ML IV SCH (21:33)
[2020-08-14] MEDS: LORazepam 2 mg VIAL 1 ml IV PUSH SCH (02:05)
[2020-08-14] MEDS: HYDROmorphone 1 MG/1 ML SYRINGE IV SLOW PU PRN ×3 (04:57→20:54)
[2020-08-14 06:26] LABS: ABS Monocytes 0.7 10^3/ul (0-0.8); ABS Neutrophils 11.6 10^3/ul (1.5-7.7); Eosinophil % 0.2 %; Hematocrit 40 % (35-47); Hemoglobin 13.1 g/dL (12.0-16.0); Lymphocyte % 7.3 %; Mean Corpuscular HGB Conc 33 g/dL (31-36); Mean Corpuscular Hemoglobin 33 pg (27-31); Mean Corpuscular Volume 100 fL (80-97); Platelet Count 302 10^3/uL (150-450); Red Blood Count 3.95 10^6 /uL (3.70-4.87); Red Cell Distribution Width 15 % (10-15); White Blood Count 13.3 10^3/uL (3.5-10.8)
[2020-08-14 06:51] LABS: Albumin 3.2 g/dL (3.2-5.2); Albumin/Globulin Ratio 0.9 (1-3); Calcium 8.1 mg/dL (8.6-10.3); EGFR African American 126.2 (>60); EGFR Non-African American 104.3 (>60); Globulin 3.4 g/dL (2-4); HDL Cholesterol 48.1 mg/dL; Potassium 3.9 mmol/L (3.5-5.0); Total Bilirubin 0.6 mg/dL (0.2-1.0); Total Protein 6.6 g/dL (6.4-8.9)
[2020-08-14] MEDS: Mometasone/Formoter 200/5 MDI INH SCH ×2 (07:19→19:07)
[2020-08-14] MEDS: DULoxetine DR 60 mg CAP PO SCH (08:35)
[2020-08-14] MEDS: Nicotine PATCH 21 MG/24 HR PATCH TRANSDERM SCH (08:36)
[2020-08-14] MEDS: CMCS: Budesonide 3 mg CAP (NF) PO SCH (09:33)
[2020-08-14] MEDS: Lactated Ringers 1000 ml BAG 1,000 ML IV SCH (10:33)
[2020-08-14 20:11] LABS: Calcium 8.2 mg/dL (8.6-10.3); EGFR African American 116.9 (>60); EGFR Non-African American 96.6 (>60); Potassium 4.5 mmol/L (3.5-5.0)
[2020-08-14] MEDS: Enoxaparin 40 MG/0.4 ML SYR SUBCUT SCH (20:52)
[2020-08-14 21:22] LABS: Globulin 2.9 g/dL (2-4); Indirect Bilirubin 0.6 mg/dL (0.3-1.0); Total Bilirubin 0.7 mg/dL (0.2-1.0); Total Protein 5.9 g/dL (6.4-8.9)
[2020-08-15 06:42] LABS: Albumin 2.9 g/dL (3.2-5.2); EGFR African American 128.8 (>60); EGFR Non-African American 106.4 (>60); Globulin 2.9 g/dL (2-4); Potassium 4.4 mmol/L (3.5-5.0); Total Bilirubin 0.7 mg/dL (0.2-1.0); Total Protein 5.8 g/dL (6.4-8.9)
[2020-08-15] MEDS: Mometasone/Formoter 200/5 MDI INH SCH ×2 (07:20→20:36)
[2020-08-15] MEDS: CMCS: Budesonide 3 mg CAP (NF) PO SCH (08:44)
[2020-08-15] MEDS: Nicotine PATCH 21 MG/24 HR PATCH TRANSDERM SCH (08:44)
[2020-08-15] MEDS: DULoxetine DR 60 mg CAP PO SCH (08:44)
[2020-08-15] MEDS: HYDROmorphone 1 MG/1 ML SYRINGE IV SLOW PU PRN (17:30)
[2020-08-15] MEDS ORDERED: Dextrose 25% PED SYRINGE 10ml IV PRN (18:35)
[2020-08-15] MEDS ORDERED: Dextrose 50% Syringe 50 ml 25 GM/50 ML SYRINGE IV PUSH PRN (18:54)
[2020-08-15] MEDS: Enoxaparin 40 MG/0.4 ML SYR SUBCUT SCH (20:57)
[2020-08-15] MEDS: LORazepam 2 mg VIAL 1 ml IV PUSH SCH (20:58)
[2020-08-16 06:17] LABS: Albumin 2.8 g/dL (3.2-5.2); Albumin/Globulin Ratio 0.9 (1-3); Calcium 8.2 mg/dL (8.6-10.3); EGFR African American 140.1 (>60); EGFR Non-African American 115.8 (>60); Globulin 3.1 g/dL (2-4); Potassium 3.6 mmol/L (3.5-5.0); Total Bilirubin 0.5 mg/dL (0.2-1.0); Total Protein 5.9 g/dL (6.4-8.9)
[2020-08-16] MEDS: Mometasone/Formoter 200/5 MDI INH SCH ×2 (07:55→20:19)
[2020-08-16] MEDS: DULoxetine DR 60 mg CAP PO SCH (08:30)
[2020-08-16] MEDS: CMCS: Budesonide 3 mg CAP (NF) PO SCH (08:30)
[2020-08-16] MEDS: Nicotine PATCH 21 MG/24 HR PATCH TRANSDERM SCH (08:32)
[2020-08-16] MEDS: Albuterol HFA INHALER 8 gm MDI INH PRN (21:26)
[2020-08-16] MEDS: HYDROmorphone 1 MG/1 ML SYRINGE IV SLOW PU PRN (21:30)
[2020-08-16] MEDS: Enoxaparin 40 MG/0.4 ML SYR SUBCUT SCH (21:42)
[2020-08-17 04:42] LABS: ABS Lymphocytes 1.2 10^3/ul (1.0-4.8); ABS Monocytes 0.6 10^3/ul (0-0.8); ABS Neutrophils 7.1 10^3/ul (1.5-7.7); Eosinophil % 0.3 %; Hematocrit 28 % (35-47); Hemoglobin 9.4 g/dL (12.0-16.0); Lymphocyte % 13.4 %; Mean Corpuscular HGB Conc 34 g/dL (31-36); Mean Corpuscular Hemoglobin 34 pg (27-31); Mean Corpuscular Volume 99 fL (80-97); Platelet Count 187 10^3/uL (150-450); Red Cell Distribution Width 15 % (10-15); White Blood Count 8.9 10^3/uL (3.5-10.8)
[2020-08-17 04:58] LABS: Calcium 8.2 mg/dL (8.6-10.3); EGFR Non-African American 136.3 (>60); Potassium 3.1 mmol/L (3.5-5.0)
[2020-08-17] MEDS ORDERED: Potassium Chloride LIQUID 20 MEQ/15 ML LIQUID PO ONE ×2 (06:24→06:56)
[2020-08-17 06:44] LABS: Magnesium 1.9 mg/dL (1.9-2.7)
[2020-08-17] MEDS: Mometasone/Formoter 200/5 MDI INH SCH ×2 (08:10→21:45)
[2020-08-17] MEDS: DULoxetine DR 60 mg CAP PO SCH (08:52)
[2020-08-17] MEDS: CMCS: Budesonide 3 mg CAP (NF) PO SCH (08:52)
[2020-08-17] MEDS: Nicotine PATCH 21 MG/24 HR PATCH TRANSDERM SCH (09:00)
[2020-08-17] MEDS: Albuterol HFA INHALER 8 gm MDI INH PRN (15:51)
[2020-08-17] MEDS: Albuterol 2.5mg/3 ml (0.083%) NEB.SOLN INH PRN (15:59)
[2020-08-17] MEDS ORDERED: Albuterol/Ipratropium NEB.SOL (2.5/0.5 MG) 3 ML NEB.SOLN INH SCH (16:00)
[2020-08-17] MEDS: Albuterol/Ipratropium NEB.SOL (2.5/0.5 MG) 3 ML NEB.SOLN INH SCH (18:31)
[2020-08-17] MEDS: Enoxaparin 40 MG/0.4 ML SYR SUBCUT SCH (19:35)
[2020-08-17] MEDS: HYDROmorphone 1 MG/1 ML SYRINGE IV SLOW PU PRN (21:38)
[2020-08-18] MEDS: Albuterol/Ipratropium NEB.SOL (2.5/0.5 MG) 3 ML NEB.SOLN INH SCH ×5 (00:53→21:34)
[2020-08-18 04:46] LABS: Hematocrit 26 % (35-47); Hemoglobin 8.7 g/dL (12.0-16.0)
[2020-08-18] MEDS: Mometasone/Formoter 200/5 MDI INH SCH ×2 (07:11→21:34)
[2020-08-18] MEDS: DULoxetine DR 60 mg CAP PO SCH (08:27)
[2020-08-18] MEDS: CMCS: Budesonide 3 mg CAP (NF) PO SCH (08:28)
[2020-08-18] MEDS: Nicotine PATCH 21 MG/24 HR PATCH TRANSDERM SCH (08:30)
[2020-08-18 12:22] LABS: Mean Platelet Volume 8.3 fL (7.4-10.4); Platelet Count 181 10^3/uL (150-450); White Blood Count 8.7 10^3/uL (3.5-10.8)
[2020-08-18 12:33] LABS: Calcium 8.3 mg/dL (8.6-10.3); EGFR African American 140.1 (>60); EGFR Non-African American 115.8 (>60); Potassium 3.7 mmol/L (3.5-5.0)
[2020-08-18] MEDS: Albuterol 2.5mg/3 ml (0.083%) NEB.SOLN INH PRN (16:32)
[2020-08-18] MEDS ORDERED: Magnesium Sulfate 2 gm BAG 2 GM/50 ML BAG IVPB ONE (16:40)
[2020-08-18 17:29] LABS: Magnesium 1.6 mg/dL (1.9-2.7)
[2020-08-18 17:38] LABS: Troponin I 0.04 ng/mL (<0.03)
[2020-08-18 17:50] LABS: ABS Lymphocytes 1.4 10^3/ul (1.0-4.8); ABS Monocytes 0.8 10^3/ul (0-0.8); ABS Neutrophils 9.8 10^3/ul (1.5-7.7); Eosinophil % 0.3 %; Hematocrit 29 % (35-47); Hemoglobin 9.8 g/dL (12.0-16.0); Lymphocyte % 11.3 %; Mean Corpuscular HGB Conc 33 g/dL (31-36); Mean Corpuscular Hemoglobin 33 pg (27-31); Mean Corpuscular Volume 99 fL (80-97); Mean Platelet Volume 8.5 fL (7.4-10.4); Platelet Count 233 10^3/uL (150-450); Red Blood Count 2.95 10^6 /uL (3.70-4.87); Red Cell Distribution Width 16 % (10-15); White Blood Count 12.1 10^3/uL (3.5-10.8)
[2020-08-18] MEDS ORDERED: Furosemide 20 mg/2 ml IV VIAL IV ONE ×2 (18:09→19:40)
[2020-08-18] MEDS: HYDROmorphone 1 MG/1 ML SYRINGE IV SLOW PU PRN (20:21)
[2020-08-18] MEDS: Enoxaparin 40 MG/0.4 ML SYR SUBCUT SCH (20:21)
[2020-08-19] MEDS: Albuterol/Ipratropium NEB.SOL (2.5/0.5 MG) 3 ML NEB.SOLN INH SCH ×4 (01:48→19:04)
[2020-08-19 05:31] LABS: ABS Basophils 0.1 10^3/ul (0-0.2); ABS Lymphocytes 0.7 10^3/ul (1.0-4.8); ABS Monocytes 0.4 10^3/ul (0-0.8); ABS Neutrophils 8.5 10^3/ul (1.5-7.7); Hematocrit 30 % (35-47); Hemoglobin 10.2 g/dL (12.0-16.0); Mean Corpuscular HGB Conc 34 g/dL (31-36); Mean Corpuscular Hemoglobin 34 pg (27-31); Mean Corpuscular Volume 100 fL (80-97); Mean Platelet Volume 7.8 fL (7.4-10.4); Platelet Count 237 10^3/uL (150-450); Red Blood Count 3.01 10^6 /uL (3.70-4.87); Red Cell Distribution Width 16 % (10-15); White Blood Count 9.6 10^3/uL (3.5-10.8)
[2020-08-19 06:33] LABS: Folate > 20.00 ng/mL (5.90-24.80)
[2020-08-19 06:34] LABS: Vitamin B12 883 pg/mL (180-914)
[2020-08-19] MEDS: Mometasone/Formoter 200/5 MDI INH SCH ×2 (07:11→19:03)
[2020-08-19 07:44] LABS: Lipase 95 U/L (11.0-82.0)
[2020-08-19] MEDS: CMCS: Budesonide 3 mg CAP (NF) PO SCH (07:53)
[2020-08-19] MEDS: DULoxetine DR 60 mg CAP PO SCH (07:54)
[2020-08-19] MEDS: Nicotine PATCH 21 MG/24 HR PATCH TRANSDERM SCH (07:56)
[2020-08-19 07:57] LABS: Anion Gap 8 mmol/L (2-11); Blood Urea Nitrogen 10 mg/dL (6-24); CO2 Carbon Dioxide 30 mmol/L (22-32); Calcium 8.8 mg/dL (8.6-10.3); Chloride 94 mmol/L (101-111); EGFR African American 110.7 (>60); EGFR Non-African American 91.5 (>60); Glucose 134 mg/dL (70-100); Magnesium 2.2 mg/dL (1.9-2.7); Potassium 3.9 mmol/L (3.5-5.0); Sodium 132 mmol/L (135-145)
[2020-08-19] MEDS ORDERED: Furosemide 20 mg/2 ml IV VIAL IV SLOW PU ONE (08:06)
[2020-08-19] MEDS ORDERED: Furosemide 20 mg/2 ml IV VIAL IV ONE (11:08)
[2020-08-19] MEDS ORDERED: Iohexol 300 (CONTRAST) 10 ML SDV IV ONE (16:11)
[2020-08-19] MEDS ORDERED: Iodixanol (CONTRAST) 320 MG/ML 100 ML SDV IV ONE (16:20)
[2020-08-19] MEDS ORDERED: Furosemide 40 mg/4 ml IV VIAL IV SLOW PU ONE (18:34)
[2020-08-19] MEDS: Enoxaparin 40 MG/0.4 ML SYR SUBCUT SCH (20:17)
[2020-08-19] MEDS: HYDROmorphone 1 MG/1 ML SYRINGE IV SLOW PU PRN (22:09)
[2020-08-20] MEDS: Albuterol/Ipratropium NEB.SOL (2.5/0.5 MG) 3 ML NEB.SOLN INH SCH ×4 (01:35→19:13)
[2020-08-20 06:52] LABS: Calcium 8.8 mg/dL (8.6-10.3); EGFR African American 92.4 (>60); EGFR Non-African American 76.4 (>60); Magnesium 1.9 mg/dL (1.9-2.7); Potassium 3.6 mmol/L (3.5-5.0)
[2020-08-20] MEDS ORDERED: Potassium Chloride LIQUID 20 MEQ/15 ML LIQUID PO ONE (07:48)
[2020-08-20] MEDS ORDERED: Magnesium Sulfate 2 gm BAG 2 GM/50 ML BAG IVPB ONE (07:48)
[2020-08-20] MEDS ORDERED: Furosemide 40 mg/4 ml IV VIAL IV ONE (08:14)
[2020-08-20] MEDS: Mometasone/Formoter 200/5 MDI INH SCH ×2 (08:21→19:13)
[2020-08-20] MEDS: CMCS: Budesonide 3 mg CAP (NF) PO SCH (08:56)
[2020-08-20] MEDS: DULoxetine DR 60 mg CAP PO SCH (08:57)
[2020-08-20] MEDS: Nicotine PATCH 21 MG/24 HR PATCH TRANSDERM SCH (08:58)
[2020-08-20] MEDS ORDERED: Potassium Chlor 20 meq TAB.ER PO SCH (09:00)
[2020-08-20 09:26] LABS: C Reactive Protein 161.96 mg/L (<8.01)
[2020-08-20] MEDS: Enoxaparin 40 MG/0.4 ML SYR SUBCUT SCH (20:40)
[2020-08-20] MEDS: HYDROmorphone 1 MG/1 ML SYRINGE IV SLOW PU PRN (20:48)
[2020-08-21] MEDS: Albuterol/Ipratropium NEB.SOL (2.5/0.5 MG) 3 ML NEB.SOLN INH SCH ×3 (01:56→13:16)
[2020-08-21 06:43] LABS: Calcium 8.8 mg/dL (8.6-10.3); EGFR African American 110.7 (>60); EGFR Non-African American 91.5 (>60); Potassium 3.8 mmol/L (3.5-5.0)
[2020-08-21] MEDS: Mometasone/Formoter 200/5 MDI INH SCH (07:40)
[2020-08-21 08:09] LABS: Magnesium 2.4 mg/dL (1.9-2.7)
[2020-08-21] MEDS ORDERED: Furosemide 40 mg/4 ml IV VIAL IV ONE (08:24)
[2020-08-21] MEDS: DULoxetine DR 60 mg CAP PO SCH (08:38)
[2020-08-21] MEDS: Nicotine PATCH 21 MG/24 HR PATCH TRANSDERM SCH (08:38)
[2020-08-21] MEDS: CMCS: Budesonide 3 mg CAP (NF) PO SCH (08:39)
[2020-08-21 12:03] VITALS: BP 114/62
[2020-08-21] MEDS ORDERED: Albuterol/Ipratropium NEB.SOL (2.5/0.5 MG) 3 ML NEB.SOLN INH PRN (13:22)
== END 2020-08-21 17:10 | disposition home or self-care (01) | DRG 438 ==
LOC: ED 16:27 → MED 20:13
PROVIDERS: ADMIT Pediatrics; ATTEND Internal Medicine

== ENCOUNTER 2020-11-20 15:55 | Inpatient (IN) ==
[2020-11-20 19:11] LABS: Hematocrit 34 % (35-47); Hemoglobin 11.5 g/dL (12.0-16.0); Mean Corpuscular HGB Conc 34 g/dL (31-36); Mean Corpuscular Hemoglobin 34 pg (27-31); Mean Corpuscular Volume 100 fL (80-97); Mean Platelet Volume 8.1 fL (7.4-10.4); Platelet Count 446 10^3/uL (150-450); Red Blood Count 3.37 10^6 /uL (3.70-4.87); Red Cell Distribution Width 17 % (10-15); White Blood Count 12.6 10^3/uL (3.5-10.8)
[2020-11-20 19:38] LABS: ALT 54 U/L (7-52); AST 70 U/L (13-39); Albumin 3.1 g/dL (3.2-5.2); Albumin/Globulin Ratio 0.9 (1-3); Alkaline Phosphatase 200 U/L (35-149); Blood Urea Nitrogen 12 mg/dL (6-24); CO2 Carbon Dioxide 29 mmol/L (22-32); Calcium 8.7 mg/dL (8.6-10.3); Chloride 91 mmol/L (101-111); EGFR African American 44.9 (>60); EGFR Non-African American 37.1 (>60); Globulin 3.5 g/dL (2-4); Glucose 107 mg/dL (70-100); Magnesium 1.5 mg/dL (1.9-2.7); Sodium 130 mmol/L (135-145); Total Protein 6.6 g/dL (6.4-8.9)
[2020-11-20 19:40] LABS: Anion Gap 10 mmol/L (2-11); Potassium 5.1 mmol/L (3.5-5.0)
[2020-11-20 19:52] LABS: ABS Basophils 0.1 10^3/ul (0-0.2); ABS Lymphocytes 4.8 10^3/ul (1.0-4.8); ABS Monocytes 1.2 10^3/ul (0-0.8); ABS Neutrophils 6.5 10^3/ul (1.5-7.7); Eosinophil % 0.3 %; Lymphocyte % 37.9 %; Nucleated Red Blood Cells % 0.2
[2020-11-20 20:14] LABS: TSH Ultra Thyroid Stim Horm 10.96 mcIU/mL (0.34-5.60)
[2020-11-20] MEDS ORDERED: Magnesium Sulf 4 GM/100 ML IV 4,000 MG/100 ML BAG IVPB ONE (22:22)
[2020-11-20 22:40] LABS: C Reactive Protein 6.07 mg/L (<8.01)
[2020-11-20] MEDS ORDERED: NS 0.9% 1000 ml BAG 1,000 ML IV ONE (22:45)
[2020-11-20] MEDS ORDERED: Albuterol 2.5mg/3 ml (0.083%) NEB.SOLN INH PRN (23:30)
[2020-11-21 00:03] LABS: Lipase 14 U/L (11.0-82.0)
[2020-11-21] MEDS ORDERED: Ondansetron 4 mg VIAL 2 MG/ML 2 ml VIAL IV PRN (00:22)
[2020-11-21 00:49] LABS: Alcohol, S < 13 mg/dL (<10)
[2020-11-21] MEDS ORDERED: Albuterol/Ipratropium NEB.SOL (2.5/0.5 MG) 3 ML NEB.SOLN INH PRN (01:04)
[2020-11-21] MEDS ORDERED: Albuterol HFA INHALER 8 gm MDI INH PRN (01:04)
[2020-11-21] MEDS ORDERED: HYDROcodone/ACETAMIN 5/325 mg TAB PO PRN (01:04)
[2020-11-21 02:27] LABS: Free T4 0.76 ng/dL (0.61-1.12)
[2020-11-21 02:31] LABS: Total T3 74 ng/dL (87-178)
[2020-11-21] MEDS: Enoxaparin 40 MG/0.4 ML SYR SUBCUT SCH (06:36)
[2020-11-21 08:35] LABS: ABS Lymphocytes 2.5 10^3/ul (1.0-4.8); ABS Monocytes 1.1 10^3/ul (0-0.8); ABS Neutrophils 7.6 10^3/ul (1.5-7.7); Eosinophil % 0.4 %; Hematocrit 29 % (35-47); Hemoglobin 9.6 g/dL (12.0-16.0); Lymphocyte % 22.6 %; Mean Corpuscular HGB Conc 33 g/dL (31-36); Mean Corpuscular Hemoglobin 34 pg (27-31); Mean Corpuscular Volume 101 fL (80-97); Mean Platelet Volume 7.7 fL (7.4-10.4); Platelet Count 362 10^3/uL (150-450); Red Blood Count 2.87 10^6 /uL (3.70-4.87); Red Cell Distribution Width 17 % (10-15); White Blood Count 11.3 10^3/uL (3.5-10.8)
[2020-11-21] MEDS: Mometasone/Formoter 200/5 MDI INH SCH ×2 (08:52→20:32)
[2020-11-21] MEDS: SPIRIVA Respimat (tiotropium) 2.5 mcg/inh Inhaler INH SCH (08:52)
[2020-11-21 09:17] LABS: Albumin 2.5 g/dL (3.2-5.2); Calcium 7.7 mg/dL (8.6-10.3); Magnesium 2.9 mg/dL (1.9-2.7); Potassium 4.5 mmol/L (3.5-5.0); Total Bilirubin 0.6 mg/dL (0.2-1.0)
[2020-11-21 09:24] LABS: Albumin/Globulin Ratio 0.9 (1-3); EGFR African American 67.3 (>60); EGFR Non-African American 55.6 (>60); Globulin 2.7 g/dL (2-4); Total Protein 5.2 g/dL (6.4-8.9)
[2020-11-21] MEDS: CMCS: Budesonide 3 mg CAP (NF) PO SCH (10:37)
[2020-11-21] MEDS: Aspirin EC 81 mg TAB.EC (enteric coated) PO SCH (10:37)
[2020-11-21] MEDS ORDERED: Azithromycin 500 mg/250 ml NS 500 MG/250 ML BAG IVPB SCH (17:00)
[2020-11-21] MEDS: cefTRIAXone 1 gm/50 mL NS BAG 1 GM/50 ML BAG IVPB SCH (17:58)
[2020-11-21] MEDS: methylPREDNISolone SOD 40 mg/ml 1 ml VIAL IV SCH (18:03)
[2020-11-21 19:47] LABS: Urine Bacteria Absent (Absent); Urine Red Blood Cell Trace(0-2/hpf) (Absent); Urine Squamous Epithelial Cell Present (Absent); Urine White Blood Cell Trace(0-5/hpf) (Absent)
[2020-11-21 20:07] LABS: Urine Appearance Clear; Urine Bilirubin Negative (Negative); Urine Blood Negative (Negative); Urine Color Yellow; Urine Glucose Negative (Negative); Urine Ketones Negative (Negative); Urine Nitrite Negative (Negative); Urine Protein Negative (Negative); Urine Specific Gravity 1.006 (1.002-1.030); Urine Urobilinogen Negative (Negative)
[2020-11-22 06:15] LABS: ABS Monocytes 0.6 10^3/ul (0-0.8); ABS Neutrophils 4.7 10^3/ul (1.5-7.7); Hematocrit 27 % (35-47); Hemoglobin 8.9 g/dL (12.0-16.0); Lymphocyte % 27.7 %; Mean Corpuscular HGB Conc 33 g/dL (31-36); Mean Corpuscular Hemoglobin 34 pg (27-31); Mean Corpuscular Volume 102 fL (80-97); Mean Platelet Volume 8.1 fL (7.4-10.4); Nucleated Red Blood Cells % 0.1; Platelet Count 346 10^3/uL (150-450); Red Blood Count 2.63 10^6 /uL (3.70-4.87); Red Cell Distribution Width 18 % (10-15); White Blood Count 7.3 10^3/uL (3.5-10.8)
[2020-11-22 06:42] LABS: Calcium 7.6 mg/dL (8.6-10.3); EGFR African American 87.1 (>60); Magnesium 2.1 mg/dL (1.9-2.7); Potassium 4.4 mmol/L (3.5-5.0)
[2020-11-22] MEDS ORDERED: Furosemide 20 mg/2 ml IV VIAL IV SLOW PU ONE (07:00)
[2020-11-22] MEDS: Enoxaparin 40 MG/0.4 ML SYR SUBCUT SCH (07:21)
[2020-11-22 08:11] VITALS: BP 93/56
[2020-11-22] MEDS: Aspirin EC 81 mg TAB.EC (enteric coated) PO SCH (08:19)
[2020-11-22] MEDS: CMCS: Budesonide 3 mg CAP (NF) PO SCH (08:21)
[2020-11-22] MEDS: methylPREDNISolone SOD 40 mg/ml 1 ml VIAL IV SCH (08:22)
[2020-11-22] MEDS: cefTRIAXone 1 gm/50 mL NS BAG 1 GM/50 ML BAG IVPB SCH (08:30)
[2020-11-22] MEDS: SPIRIVA Respimat (tiotropium) 2.5 mcg/inh Inhaler INH SCH (10:51)
[2020-11-22] MEDS: Mometasone/Formoter 200/5 MDI INH SCH (10:51)
== END 2020-11-22 13:30 | disposition home or self-care (01) | DRG 191 ==
LOC: ED 15:55 → MED 15:55 → SUATTDRO 11-21 00:22 → MED 11-21 05:13
PROVIDERS: ADMIT Student in an Organized Health Care Education/Training Program; ATTEND Internal Medicine